=== PATIENT | female | born 1940 | race Asian ===

== ENCOUNTER 2020-06-22 11:25 | Outpatient (REF) | payer MEDICARE, SELFPAY ==
--- NOTE | 2020-06-22 11:31 | MM_ITS ---
EXAMINATION: MM SCREENING DIGITAL BREAST TOMOSYNTHESIS, BILATERAL CLINICAL INFORMATION: Left mastectomy for breast cancer, 1989. Due for yearly. COMPARISON: Mammography: 06/17/2019, 06/14/2018, 06/09/2017, 05/27/2016 TECHNIQUE: Digital breast tomosynthesis is performed in both the craniocaudal and mediolateral oblique views along with computer-aided detection (CAD). Synthesized 2D images are generated from the tomosynthesis. Additional exaggerated CC view is provided. FINDINGS: There are scattered areas of fibroglandular density (ACR BI-RADS breast composition Category b). Breast tissue composition borders on heterogeneously dense. There is fibronodular parenchymal pattern similar to prior exams. There is no significant mass or developing density. No interval architectural abnormality. There are scattered benign round and coarse calcifications. The skin contours are smooth. No significant changes. MM/MM tomosynthesis screening RT IMPRESSION: No significant changes from prior studies. ASSESSMENT: BI-RADS 2: Benign RECOMMENDATION: Routine annual mammography screening. This patient's information was entered into a reminder system with a target due date for their next mammogram.
== END 2020-06-22 11:26 | disposition home or self-care (01) ==
LOC: HO.MAMMO 11:25
PROVIDERS: PCP Internal Medicine; Visit Provider Internal Medicine
DX: Z12.31 Encounter for screening mammogram for malignant neoplasm of breast (principal)
CPT/HCPCS: 77067

== ENCOUNTER 2021-01-26 13:56 | Outpatient (REF) | payer MEDICARE, SELFPAY ==
--- NOTE | ~2021-01-26 | XR_ITS ---
EXAMINATION: XR HIP, LEFT CLINICAL INFORMATION: Left hip pain COMPARISON: May 06, 2020 TECHNIQUE: Two views of the left hip. FINDINGS: Patient status post left hip arthroplasty. The acetabular and femoral components appear in good position. No fracture or dislocation. No evidence of prosthetic component loosening. XR/XR hip LT min 2V IMPRESSION: Appropriate alignment of the left total hip arthroplasty without surrounding abnormalities.
[2021-01-26 16:25] LABS: MANUAL DIFF FLAG NO
[2021-01-26 16:29] LABS: Basophils Percent Auto 0.3 % (0-2); Eosinophils Absolute Auto 0.2 X10*3/uL (0.0-0.4); Hematocrit 41.8 % (37-47); Hemoglobin 13.3 g/dl (12.0-16.0); Imm Gran Abs Auto 0.03 X10*3/uL (0.00-0.03); Imm Gran Pct Auto 0.5 % (0.0-0.4); Lymphocytes Absolute Auto 2.4 X10*3/uL (1.2-4.9); Mean Corpuscular HGB Conc 31.8 g/dl (31.0-35.0); Mean Corpuscular Hemoglobin 28.5 pg (27.0-33.0); Mean Corpuscular Volume 89.5 fL (80-98); Mean Platelet Volume 9.5 fL (9.4-12.3); Monocytes Absolute Auto 0.6 X10*3/uL (0.1-1.2); Monocytes Percent Auto 8.4 % (2-11); Neutrophils Absolute Auto 3.3 X10*3/uL (2.0-8.3); Neutrophils Percent Auto 50.8 % (45-73); Platelet Count 273 X10*3/uL (160-400); Red Blood Count 4.67 X10*6/uL (4.20-5.50); Red Cell Distribution Width 13.9 % (11.0-16.0); White Blood Count 6.6 X10*3/uL (4.8-10.8)
[2021-01-26 16:51] LABS: Anion Gap 15 (12-20); Blood Urea Nitrogen 40 mg/dL (9-16); C Reactive Protein 0.76 mg/dL (< or = 0.50); Carbon Dioxide 23 mmol/L (22-29); Chloride 103 mmol/L (96-108); Estimated Glomerular Filt Rate 55; Glucose Random 108 mg/dL (60-115); Sodium 137 mmol/L (135-145)
[2021-01-26 17:11] LABS: Erythrocyte Sedimentation Rate 23 MM/HR (0-20)
== END 2021-01-26 13:57 | disposition home or self-care (01) ==
LOC: HO.HMGCX 13:56
PROVIDERS: PCP Internal Medicine; Visit Provider Internal Medicine
DX: M25.552 Pain in left hip (principal); R53.83 Other fatigue
CPT/HCPCS: 36415; 73502; 80048; 85025; 85652; 86140

== ENCOUNTER 2021-02-15 10:00 | Outpatient (RCR) | payer MEDICARE, SELFPAY | END 2021-02-19 13:18 | disposition home or self-care (01) | LOC: HO.PTCHIC 10:00 | PROVIDERS: PCP Internal Medicine; Visit Provider Orthopaedic Surgery | DX: Z96.642 Presence of left artificial hip joint (principal) | CPT/HCPCS: 97110; 97140; 97161; 97530 ==

== ENCOUNTER 2021-03-12 10:08 | Emergency (ER) | payer MEDICARE, SELFPAY ==
--- NOTE | ~2021-03-12 | US_ITS ---
EXAMINATION: US ABDOMEN LIMITED CLINICAL INFORMATION: Right upper quadrant pain.. COMPARISON: None TECHNIQUE: Real-time imaging of the right upper quadrant abdominal viscera. FINDINGS: GALLBLADDER: Normal. The gallbladder is physiologically distended without evidence of stones, sludge, polyps, wall thickening or pericholecystic fluid. COMMON BILE DUCT: Normal in caliber measuring 0.4 cm in diameter. US/US abdomen limited IMPRESSION: Unremarkable gallbladder. The CBD is normal caliber.
--- NOTE | ~2021-03-12 | CT_ITS ---
EXAMINATION: CT ABDOMEN AND PELVIS WITH CONTRAST CLINICAL INFORMATION: Upper abdominal pain. Rule out cholecystitis. COMPARISON: Previous MRI of the abdomen March 2019 TECHNIQUE: Multidetector volumetric images were obtained from the superior aspect of the liver through the pubic symphysis following administration 85 mL of Omnipaque 350 intravenous contrast. Sagittal and coronal reformatted images were obtained on the technologist's workstation. Oral contrast: Yes This CT examination was performed using dose optimization techniques as appropriate, variously including the following: *Automated exposure control *Adjustment of mA and/or kV according to patient size (this includes techniques or standardized protocols for targeted exams where dose is matched to indication/reason for exam; i.e. extremities or head) *Use of iterative reconstruction technique DLP: 641 mGy-cm FINDINGS: LUNG BASES: The visualized lung bases are clear. The left breast may been removed. LIVER, GALLBLADDER, AND BILIARY TREE: The liver is low in attenuation suggestive of mild fatty infiltration. No focal liver lesion is seen. The gallbladder is unremarkable with no evidence of radiopaque gallstones, gallbladder wall thickening, or obvious pericholecystic inflammatory changes. PANCREAS: Unremarkable. SPLEEN: There is small calcifications in the spleen probably related to old granulomatous disease. ADRENAL GLANDS: Unremarkable. KIDNEYS AND URETERS: There are bilateral small cysts, right greater than left. Largest cyst measures 1 cm in the lower pole of the right kidney. BLADDER: Not well evaluated due to artifact from bilateral hip replacements. GASTROINTESTINAL TRACT: There is diverticulosis of the colon. No evidence of diverticulitis is seen. The small and large bowel are otherwise unremarkable. The appendix is is not identified and may been removed.. ABDOMINAL WALL: No significant hernia is appreciated. LYMPH NODES: Normal. VASCULAR: There is evidence of atherosclerotic disease. No aneurysm is seen. PELVIC VISCERA: Not well evaluated due to artifact from hip replacements. No pelvic mass is seen. OSSEOUS STRUCTURES: There is scoliosis and degenerative changes of the spine. There are bilateral hip replacements. CT/CT abdomen pelvis w con IMPRESSION: Normal-appearing gallbladder. Mild fatty infiltration of the liver. Bilateral renal cysts. Diverticulosis of the colon. Limited evaluation of the pelvis due to artifact from bilateral hip replacements.
[2021-03-12 11:08] VITALS: BP 155/89; PULSE 72; RESP 18; TEMP 36.5; O2SAT 97; BMI 29.7
--- NOTE | 2021-03-12 11:14 | ECG_ITS ---
Test Reason : PAIM Blood Pressure : / mmHG Vent. Rate : 073 BPM Atrial Rate : 073 BPM P-R Int : 154 ms QRS Dur : 080 ms QT Int : 386 ms P-R-T Axes : 063 023 074 degrees QTc Int : 425 ms Normal sinus rhythm Normal ECG When compared with ECG of 03-JUN-2017 19:19, No significant change was found Referred By: Generic ED Physician Electronically Signed By:Jorge Alejandra
[2021-03-12 11:31] LABS: Glucose Urine UA NEG (NEG); Leukocyte Esterase Urine NEG (NEG); Nitrite Urine NEG (NEG); Specific Gravity - Urine <= 1.005 (1.005-1.025); Urine Blood TRACE (NEG); Urine Ketones NEG (NEG); Urine Protein NEG (NEG-TRACE)
[2021-03-12 11:33] LABS: Appearance Urine CLEAR; Color Urine STRAW
[2021-03-12 11:42] LABS: Bacteria Urine TRACE /LPF; Calcium Phosphate Crystals Ur TRACE /LPF; RBC Urine 0-2 /HPF (0); Squamous Epithelial Cell Urine TRACE /LPF; WBC Urine 0-2 /HPF (0-4)
--- NOTE | 2021-03-12 12:04 | ED.ABDPAIN ---
HPI - Abdominal Pain General Chief Complaint: Abdominal Pain Stated Complaint: Stomach pain Time Seen by Provider: 03/12/21 11:48 Source: patient and family Mode of arrival: ambulatory Limitations: no limitations History of Present Illness HPI narrative: 80-year-old female with a past medical history of hypertension, hyperlipidemia, gastric reflux, bilateral hip replacements, appendectomy here with complaints of upper abdominal pain since 05:00. Patient denies any nausea, vomiting, diarrhea, constipation, urinary symptoms, fevers, chills. No chest pain or shortness of breath or cough. Related Data Allergies Allergy/AdvReac Type Severity Reaction Status Date / Time No Known Allergies Allergy Verified 03/12/21 11:14 [No Known Allergies*] Review of Systems Review of Systems Yes all other systems are reviewed and are negative Constitutional: Reports no additional constitutional complaints, Denies body ache(s), Denies chills, Denies fever(s), Denies headache(s) and Denies weakness Eyes: Reports no additional eye complaints and Denies change in vision Reports system reviewed and no additional complaints, except as documented, Denies dizziness, Denies headache(s), Denies nasal congestion, Denies nasal discharge and Denies neck pain Cardiovascular: Reports no additional cardiovascular complaints, Denies chest pain, Denies leg edema and Denies dyspnea Respiratory: Reports no additional respiratory complaints, Denies cough and Denies dyspnea Gastrointestinal: Reports no additional gastrointestinal complaints, Reports abdominal pain, Denies diarrhea, Denies nausea and Denies vomiting Genitourinary: Reports no additional female genitourinary complaints and Denies urinary incontinence Musculoskeletal: Reports no additional musculoskeletal complaints, Denies back pain, Denies arthralgias, Denies joint swelling, Denies neck pain, Denies numbness and Denies tingling Skin/Breast: Reports system reviewed and no additional complaints, except as docu and Denies rash Reports system reviewed and no additional complaints, except as documented, Denies Abnormal speech present, Denies dizziness, Denies headache(s), Denies numbness, Denies tingling and Denies weakness Physical Exam Vital Signs: Vital Signs: Last Vital Signs Temp 97.7 F 03/12/21 11:08 Pulse 70 03/12/21 17:28 Resp 14 03/12/21 17:28 BP 149/66 H 03/12/21 17:28 Pulse Ox 95 03/12/21 17:28 Body Mass Index 29.7 Const: General: cooperative, healthy appearing, comfortable and no acute distress Orientation/consciousness: patient oriented x3 Limitations: no limitations HENMT: Head: Yes normal to inspection Ears: hearing grossly normal bilaterally General nose exam: Normal external nose present Face and sinus: Yes normal facial exam Mouth: Normal oral and palatal mucosa present Throat: Yes posterior oropharynx normal Eyes: General: appearance normal, both eyes and all related structures Pupils: Equal, round and reactive pupils present Neck: Neck: Yes normal visual inspection Chest: Chest palpation & inspection: normal inspection of the chest Resp: Effort & Inspection: normal respiratory effort Auscultation: clear to auscultation bilaterally Cardio: Rate: regular rate Rhythm: regular rhythm Peripheral pulses: Peripheral pulses 2+ throughout GI: Inspection: Yes normal to inspection Palpation (GI): Soft to palpation and Tenderness to palpation present (GI) (mod tenderness bilateral upper quadrants with guarding and rebound) Auscultation: normal bowel sounds Back/Spine/Pelvis: Thoracic/Lumbar Spine: thoracic and lumbar spine normal to inspection Skin: General skin exam: no rashes or lesions noted Neuro: General: patient oriented x3, no focal motor deficits and normal sensation to monofilament Cranial nerves: Yes Equal, round and reactive pupils present Cognition (Neuro): normal cognition Speech: No Abnormal speech present Gait exam (Neuro): Normal gait present Motor exam (neuro): 5/5 motor strength present throughout Extrem: General: Yes normal to inspection, Yes no pedal edema and Yes no calf tenderness Course Course Course Narrative: 80-year-old female here with upper abdominal pain since 05:00. Patient on exam has moderate upper abdominal tenderness with guarding and rebound. Will need EKG, labs, UA, stat CT. -reviewed labs from January 26 which showed normal renal function. Spoke to CT will take patient for emergent CT while labs pending. Ordered analgesia. 1335-CT shows no acute finding. EKG and troponin negative. UA shows no acute finding. All labs unremarkable. ?Gerd. Will give PPI, GI cocktail and re-assess. 1540-Pt continues to be tender with rebound more focal in epigastric and LUQ. d/w with Dr Bal from surgery. Reviewed CT. No surgical intervention. ?PUD or gastritis. D/w with attending. Plan for abdomen US. 1800-abdominal ultrasound shows no acute finding. Likely gastritis or PUD. Patient is tolerating p.o. with no vomiting. She is on Prilosec 20 mg daily. Recommend increased to 40 mg daily. Following up outpatient with GI. Reviewed worrisome signs and symptoms such as vomiting, severe pain, fever and when to return to the emergency department. Comfortable discharge home. MDM - Abdominal Pain MDM Narrative Medical decision making narrative: Perforated, cholecystitis, pancreatitis, ACS Medical Records Attestation: I reviewed the patient's medical records. Lab Data Attestation: I reviewed the patient's lab results. Result diagrams: 03/12/21 12:09 03/12/21 12:09 Labs: Lab Results 03/12/21 03/12/21 03/12/21 Range/Units 11:18 12:09 12:09 WBC 7.2 (4.8-10.8) X10*3/uL RBC 4.84 (4.20-5.50) X10*6/uL Hgb 14.0 (12.0-16.0) g/dl Hct 42.9 (37-47) % MCV 88.6 (80-98) fL MCH 28.9 (27.0-33.0) pg MCHC 32.6 (31.0-35.0) g/dl RDW 14.4 (11.0-16.0) % Plt Count 224 (160-400) X10*3/uL MPV 9.6 (9.4-12.3) fL Immature Gran % (Auto) 0.3 (0.0-0.4) % Neut % (Auto) 68.3 (45-73) % Lymph % (Auto) 22.0 (20-40) % Alfalfa % (Auto) 7.6 (2-11) % Eos % (Auto) 1.7 (0-4) % Baso % (Auto) 0.1 (0-2) % Lymph # (Auto) 1.6 (1.2-4.9) X10*3/uL Alfalfa # (Auto) 0.6 (0.1-1.2) X10*3/uL Eos # (Auto) 0.1 (0.0-0.4) X10*3/uL Baso # (Auto) 0.0 (0.0-0.2) X10*3/uL Abs Immat Gran (auto) 0.02 (0.00-0.03) X10*3/uL Absolute Neuts (auto) 4.9 (2.0-8.3) X10*3/uL Absolute Nucleated RBC 0.000 (0.0-0.012) X10*3/uL Nucleated RBC % (auto) 0.0 (0.0-0.2) /100WBC PT (9.9-13.0) SEC INR (0.9-1.1) Sodium (135-145) mmol/L Potassium (3.3-5.1) mmol/L Chloride (96-108) mmol/L Carbon Dioxide (22-29) mmol/L Anion Gap (12-20) BUN (9-16) mg/dL Creatinine (0.5-1.4) mg/dL Estim Creat Clear Calc Estimated GFR Random Glucose (60-115) mg/dL Lactic Acid (0.5-2.0) mmol/L Calcium (8.4-10.2) mg/dL Magnesium (1.6-2.6) mg/dL Total Bilirubin (0.0-1.0) mg/dL Direct Bilirubin (0.0-0.5) mg/dL AST (5-31) U/L ALT (0-31) U/L Alkaline Phosphatase (39-117) U/L Troponin I High Sens < 3.5 (<3.5-17.0) ng/L Total Protein (6.5-8.0) g/dL Albumin (3.5-5.0) g/dL Lipase (8-78) U/L Urine Color STRAW Urine Appearance CLEAR Urine pH 6.0 (5.0-8.0) Ur Specific [place] <= 1.005 (1.005-1.025) Urine Protein NEG (NEG-TRACE) MG/DL Urine Glucose (UA) NEG (NEG) MG/DL Urine Ketones NEG (NEG) MG/DL Urine Blood TRACE (NEG) Urine Nitrite NEG (NEG) Ur Leukocyte Esterase NEG (NEG) Urine RBC 0-2 (0) /HPF Urine WBC 0-2 (0-4) /HPF Ur Squamous Epith Cells TRACE /LPF Calcium Phosphate Cryst TRACE /LPF Urine Bacteria TRACE /LPF Coronavirus (PCR) (Negative) Influenza Type A (PCR) (Negative) Influenza Type B (PCR) (Negative) RSV RNA Qual (PCR) (Negative) 03/12/21 03/12/21 03/12/21 Range/Units 12:09 12:09 12:09 WBC (4.8-10.8) X10*3/uL RBC (4.20-5.50) X10*6/uL Hgb (12.0-16.0) g/dl Hct (37-47) % MCV (80-98) fL MCH (27.0-33.0) pg MCHC (31.0-35.0) g/dl RDW (11.0-16.0) % Plt Count (160-400) X10*3/uL MPV (9.4-12.3) fL Immature Gran % (Auto) (0.0-0.4) % Neut % (Auto) (45-73) % Lymph % (Auto) (20-40) % Alfalfa % (Auto) (2-11) % Eos % (Auto) (0-4) % Baso % (Auto) (0-2) % Lymph # (Auto) (1.2-4.9) X10*3/uL Alfalfa # (Auto) (0.1-1.2) X10*3/uL Eos # (Auto) (0.0-0.4) X10*3/uL Baso # (Auto) (0.0-0.2) X10*3/uL Abs Immat Gran (auto) (0.00-0.03) X10*3/uL Absolute Neuts (auto) (2.0-8.3) X10*3/uL Absolute Nucleated RBC (0.0-0.012) X10*3/uL Nucleated RBC % (auto) (0.0-0.2) /100WBC PT 10.8 (9.9-13.0) SEC INR 1.0 (0.9-1.1) Sodium 142 (135-145) mmol/L Potassium 4.2 (3.3-5.1) mmol/L Chloride 109 H (96-108) mmol/L Carbon Dioxide 20 L (22-29) mmol/L Anion Gap 17 (12-20) BUN 22 H (9-16) mg/dL Creatinine 0.88 (0.5-1.4) mg/dL Estim Creat Clear Calc 44.9 Estimated GFR > 60 Random Glucose 98 (60-115) mg/dL Lactic Acid (0.5-2.0) mmol/L Calcium 9.5 (8.4-10.2) mg/dL Magnesium 2.1 (1.6-2.6) mg/dL Total Bilirubin 0.6 (0.0-1.0) mg/dL Direct Bilirubin 0.2 (0.0-0.5) mg/dL AST 18 (5-31) U/L ALT 11 (0-31) U/L Alkaline Phosphatase 92 (39-117) U/L Troponin I High Sens (<3.5-17.0) ng/L Total Protein 7.1 (6.5-8.0) g/dL Albumin 4.0 (3.5-5.0) g/dL Lipase 19 (8-78) U/L Urine Color Urine Appearance Urine pH (5.0-8.0) Ur Specific [place] (1.005-1.025) Urine Protein (NEG-TRACE) MG/DL Urine Glucose (UA) (NEG) MG/DL Urine Ketones (NEG) MG/DL Urine Blood (NEG) Urine Nitrite (NEG) Ur Leukocyte Esterase (NEG) Urine RBC (0) /HPF Urine WBC (0-4) /HPF Ur Squamous Epith Cells /LPF Calcium Phosphate Cryst /LPF Urine Bacteria /LPF Coronavirus (PCR) NEGATIVE (Negative) Influenza Type A (PCR) NEGATIVE (Negative) Influenza Type B (PCR) NEGATIVE (Negative) RSV RNA Qual (PCR) NEGATIVE (Negative) 03/12/21 Range/Units 12:09 WBC (4.8-10.8) X10*3/uL RBC (4.20-5.50) X10*6/uL Hgb (12.0-16.0) g/dl Hct (37-47) % MCV (80-98) fL MCH (27.0-33.0) pg MCHC (31.0-35.0) g/dl RDW (11.0-16.0) % Plt Count (160-400) X10*3/uL MPV (9.4-12.3) fL Immature Gran % (Auto) (0.0-0.4) % Neut % (Auto) (45-73) % Lymph % (Auto) (20-40) % Alfalfa % (Auto) (2-11) % Eos % (Auto) (0-4) % Baso % (Auto) (0-2) % Lymph # (Auto) (1.2-4.9) X10*3/uL Alfalfa # (Auto) (0.1-1.2) X10*3/uL Eos # (Auto) (0.0-0.4) X10*3/uL Baso # (Auto) (0.0-0.2) X10*3/uL Abs Immat Gran (auto) (0.00-0.03) X10*3/uL Absolute Neuts (auto) (2.0-8.3) X10*3/uL Absolute Nucleated RBC (0.0-0.012) X10*3/uL Nucleated RBC % (auto) (0.0-0.2) /100WBC PT (9.9-13.0) SEC INR (0.9-1.1) Sodium (135-145) mmol/L Potassium (3.3-5.1) mmol/L Chloride (96-108) mmol/L Carbon Dioxide (22-29) mmol/L Anion Gap (12-20) BUN (9-16) mg/dL Creatinine (0.5-1.4) mg/dL Estim Creat Clear Calc Estimated GFR Random Glucose (60-115) mg/dL Lactic Acid 1.1 (0.5-2.0) mmol/L Calcium (8.4-10.2) mg/dL Magnesium (1.6-2.6) mg/dL Total Bilirubin (0.0-1.0) mg/dL Direct Bilirubin (0.0-0.5) mg/dL AST (5-31) U/L ALT (0-31) U/L Alkaline Phosphatase (39-117) U/L Troponin I High Sens (<3.5-17.0) ng/L Total Protein (6.5-8.0) g/dL Albumin (3.5-5.0) g/dL Lipase (8-78) U/L Urine Color Urine Appearance Urine pH (5.0-8.0) Ur Specific [place] (1.005-1.025) Urine Protein (NEG-TRACE) MG/DL Urine Glucose (UA) (NEG) MG/DL Urine Ketones (NEG) MG/DL Urine Blood (NEG) Urine Nitrite (NEG) Ur Leukocyte Esterase (NEG) Urine RBC (0) /HPF Urine WBC (0-4) /HPF Ur Squamous Epith Cells /LPF Calcium Phosphate Cryst /LPF Urine Bacteria /LPF Coronavirus (PCR) (Negative) Influenza Type A (PCR) (Negative) Influenza Type B (PCR) (Negative) RSV RNA Qual (PCR) (Negative) Imaging Data CT scan - abdomen: Attestation: I personally reviewed and interpreted this imaging study as follows: Radiologist's impression: EXAMINATION: CT ABDOMEN AND PELVIS WITH CONTRAST? CLINICAL INFORMATION: Upper abdominal pain. Rule out cholecystitis.? COMPARISON: Previous MRI of the abdomen March 2019? TECHNIQUE: Multidetector volumetric images were obtained from the superior aspect of the liver through the pubic symphysis following administration 85 mL of Omnipaque 350 intravenous contrast. Sagittal and coronal reformatted images were obtained on the technologist's workstation.? Oral contrast: Yes This CT examination was performed using dose optimization techniques as appropriate, variously including the following: *Automated exposure control *Adjustment of mA and/or kV according to patient size (this includes techniques or standardized protocols for targeted exams where dose is matched to indication/reason for exam; i.e. extremities or head) *Use of iterative reconstruction technique DLP: 641 mGy-cm FINDINGS: LUNG BASES: The visualized lung bases are clear. The left breast may been removed. LIVER, GALLBLADDER, AND BILIARY TREE: The liver is low in attenuation suggestive of mild fatty infiltration. No focal liver lesion is seen. The gallbladder is unremarkable with no evidence of radiopaque gallstones, gallbladder wall thickening, or obvious pericholecystic inflammatory changes.? PANCREAS: Unremarkable.? SPLEEN: There is small calcifications in the spleen probably related to old granulomatous disease. ADRENAL GLANDS: Unremarkable.? KIDNEYS AND URETERS: There are bilateral small cysts, right greater than left. Largest cyst measures 1 cm in the lower pole of the right kidney. BLADDER: Not well evaluated due to artifact from bilateral hip replacements. GASTROINTESTINAL TRACT: There is diverticulosis of the colon. No evidence of diverticulitis is seen. The small and large bowel are otherwise unremarkable. The appendix is is not identified and may been removed..? ABDOMINAL WALL: No significant hernia is appreciated.? LYMPH NODES: Normal. VASCULAR: There is evidence of atherosclerotic disease. No aneurysm is seen. PELVIC VISCERA: Not well evaluated due to artifact from hip replacements. No pelvic mass is seen. OSSEOUS STRUCTURES: There is scoliosis and degenerative changes of the spine. There are bilateral hip replacements.? CT/CT abdomen pelvis w con IMPRESSION: Normal-appearing gallbladder. Mild fatty infiltration of the liver. Bilateral renal cysts. Diverticulosis of the colon. Limited evaluation of the pelvis due to artifact from bilateral hip replacements.? US - abdomen: Attestation: I personally reviewed and interpreted this imaging study as follows: Radiologist's impression: FINDINGS: GALLBLADDER: Normal. The gallbladder is physiologically distended without evidence of stones, sludge, polyps, wall thickening or pericholecystic fluid. COMMON BILE DUCT: Normal in caliber measuring 0.4 cm in diameter. US/US abdomen limited IMPRESSION: Unremarkable gallbladder. ? The CBD is normal caliber. ECG Data Attestation: I personally reviewed and interpreted this ECG as follows: ECG interpretation date: 03/12/21 ECG interpretation time: 12:00 Interpretation: Normal sinus rhythm with a rate of 73, normal [place], normal QRS, long QT Discharge Plan Discharge Clinical Impression: Abdominal pain Patient Disposition: Home, Self-Care Instructions: Abdominal Pain (ED) Additional Instructions: Your CT scan and ultrasound are normal. Your lab work and urine show no findings. You may have some underlying gastritis or a gastric ulcer and so we are referring you to a fusing machine operator for follow-up Increase your Prilosec to 40 mg daily Follow a bland diet Referrals: Brown Farooq [Physician] - 2 days Interventions: ED Discharge Assessment Last Done: 03/12/21 17:27 [facility] Past Medical History Attestation statement: The following information was validated with the patient. Source: old records reviewed and nursing notes reviewed Medical History Acid reflux FHx: bilateral hip replacements Hypercholesteremia Hypertension Surgical History H/O mastectomy Hx of appendectomy Social History Social History Advance Directives: Yes Advance Directives Information Provided: Yes Advance Directives on File: No
[2021-03-12] MEDS: 0.9 % Sodium Chloride 500 ML 999 ML IV (12:10)
[2021-03-12] MEDS: Morphine Sulfate 2 MG/ML CARTRIDGE IVPUSH (12:13)
[2021-03-12 12:26] LABS: MANUAL DIFF FLAG NO
[2021-03-12 12:30] LABS: Basophils Percent Auto 0.1 % (0-2); Eosinophils Absolute Auto 0.1 X10*3/uL (0.0-0.4); Eosinophils Percent Auto 1.7 % (0-4); Hematocrit 42.9 % (37-47); Imm Gran Abs Auto 0.02 X10*3/uL (0.00-0.03); Imm Gran Pct Auto 0.3 % (0.0-0.4); Lymphocytes Absolute Auto 1.6 X10*3/uL (1.2-4.9); Mean Corpuscular HGB Conc 32.6 g/dl (31.0-35.0); Mean Corpuscular Hemoglobin 28.9 pg (27.0-33.0); Mean Corpuscular Volume 88.6 fL (80-98); Mean Platelet Volume 9.6 fL (9.4-12.3); Monocytes Absolute Auto 0.6 X10*3/uL (0.1-1.2); Monocytes Percent Auto 7.6 % (2-11); Neutrophils Absolute Auto 4.9 X10*3/uL (2.0-8.3); Neutrophils Percent Auto 68.3 % (45-73); Platelet Count 224 X10*3/uL (160-400); Red Blood Count 4.84 X10*6/uL (4.20-5.50); Red Cell Distribution Width 14.4 % (11.0-16.0); White Blood Count 7.2 X10*3/uL (4.8-10.8)
[2021-03-12 12:36] LABS: Prothrombin Time 10.8 SEC (9.9-13.0)
[2021-03-12 12:47] LABS: Lactic Acid 1.1 mmol/L (0.5-2.0)
[2021-03-12 12:57] LABS: Troponin-I High Sensitivity < 3.5 ng/L (<3.5-17.0)
[2021-03-12 13:04] LABS: Alanine Aminotransferase 11 U/L (0-31); Alkaline Phosphatase 92 U/L (39-117); Anion Gap 17 (12-20); Aspartate Amino Transferase 18 U/L (5-31); Bilirubin Direct 0.2 mg/dL (0.0-0.5); Bilirubin Total 0.6 mg/dL (0.0-1.0); Blood Urea Nitrogen 22 mg/dL (9-16); Calcium 9.5 mg/dL (8.4-10.2); Carbon Dioxide 20 mmol/L (22-29); Chloride 109 mmol/L (96-108); Creatinine Clr Calc Pharmacy 44.9; Estimated Glomerular Filt Rate > 60; Glucose Random 98 mg/dL (60-115); Lipase 19 U/L (8-78); Magnesium 2.1 mg/dL (1.6-2.6); Potassium 4.2 mmol/L (3.3-5.1); Sodium 142 mmol/L (135-145); Total Protein 7.1 g/dL (6.5-8.0)
[2021-03-12] MEDS: iohexoL 350 MG/ML 100 ML INFUS..BTL IV (13:20)
[2021-03-12 13:36] LABS: Influenza A PCR NEGATIVE (Negative); Influenza B PCR NEGATIVE (Negative); Resp Syncy Virus RNA Qual PCR NEGATIVE (Negative); SARS COV2 PCR INHOUSE NEGATIVE (Negative)
[2021-03-12] MEDS: Magnesium Hydrox/Alum Hydrox 30 ML ORAL.SUSP PO (14:55)
[2021-03-12] MEDS: Lidocaine HCl Viscous 2 % 15 ML SOLUTION MUCOUS MEM (14:56)
[2021-03-12 14:57] VITALS: BP 135/81; PULSE 72; RESP 16; O2SAT 98
[2021-03-12] MEDS: Famotidine/PF 20 MG/2 ML VIAL IVPUSH (15:02)
[2021-03-12 17:28] VITALS: BP 149/66; PULSE 70; RESP 14; O2SAT 95
== END 2021-03-12 17:27 | disposition home or self-care (01) ==
PROVIDERS: Nurse Practitioner Family; Emergency Provider Emergency Medicine Emergency Medical Services; PCP Internal Medicine
DX: R10.10 Upper abdominal pain, unspecified (principal); K21.9 Gastro-esophageal reflux disease without esophagitis; I10 Essential (primary) hypertension; Z79.899 Other long term (current) drug therapy; Z20.822 Contact with and (suspected) exposure to COVID-19
CPT/HCPCS: 0241U; 36415; 74177; 76705; 80048; 80076; 81001; 83605; 83690; 83735; 84484; 85025; 85610; 87040; 93005; 96374; 96375; 99284; J2270; Q9967

== ENCOUNTER 2021-03-26 07:43 | Day surgery (SDC) | payer MEDICARE, SELFPAY ==
--- NOTE | 2021-03-25 09:13 | HO.ANESPROP2 ---
Documented by User: Letitia Sanchez NP 03/25/21 09:14 HPI - Anesthesia Eval Consult details Narrative: 80yo F for Upper Endoscopy preop abx per surgeon d/t bilat total hips [facility] Past Medical History Medical History Acid reflux FHx: bilateral hip replacements Hypercholesteremia Hypertension Surgical History Surgical History H/O mastectomy Hx of appendectomy Social History Social History Patient Tobacco Use Status: Former Tobacco user Quit Date: 25 yr ago Use of substances other than those prescribed or required for medical reasons: No Are you DNR?: No Advance Directives: No Advance Directives Information Provided: Yes Meds Allergies Allergy/AdvReac Type Severity Reaction Status Date / Time No Known Allergies Allergy Verified 03/12/21 11:14 [No Known Allergies*] Exam Exam Date and Time: March 25, 2021 0913 Pertinent Lab Results Pertinent Lab Results: Laboratory Tests 03/12/21 03/12/21 12:09 12:09 WBC 7.2 Hgb 14.0 Hct 42.9 Plt Count 224 Sodium 142 Potassium 4.2 Chloride 109 H Carbon Dioxide 20 L BUN 22 H Creatinine 0.88 Narrative Narrative: EKG 03/2021 Vent. Rate : 073 BPM ? ? Atrial Rate : 073 BPM ?? P-R Int : 154 ms? QRS Dur : 080 ms ? ? QT Int : 386 ms ? ? ? P-R-T Axes : 063 023 074 degrees ?? QTc Int : 425 ms ? Normal sinus rhythm Normal ECG When compared with ECG of 03-JUN-2017 19:19, No significant change was found Assessment and Plan Assessment Anesthesia Assessment: Chart Reviewed Documented by User: Nini Cook MD 03/26/21 08:31 [facility] Past Medical History Medical History Acid reflux FHx: bilateral hip replacements Hypercholesteremia Hypertension Family History Family history of problems with anesthesia: No Surgical History Surgical History H/O mastectomy Hx of appendectomy History of Problems with Anesthesia: No Social History Social History Patient Tobacco Use Status: Former Tobacco user Quit Date: 25 yr ago Use of substances other than those prescribed or required for medical reasons: No Are you DNR?: No Advance Directives: No Advance Directives Information Provided: Yes Meds Allergies Allergy/AdvReac Type Severity Reaction Status Date / Time No Known Allergies Allergy Verified 03/12/21 11:14 [No Known Allergies*] Exam Airway Mallampati Class: I TM Dist: >3cm Denture: Upper Partial: Lower Heart: rrr Lungs: cta Assessment and Plan Assessment Anesthesia Assessment: Anesthesia Plan Discussed and Chart Reviewed Final Anesthetic Review Family History of Problems with Anesthesia: No History of Problems with Anesthesia: No NPO: Yes ASA Class: II Final Preanesthetic Review: No Changes in Pt Med Stat and Consent Obtained/Reviewed Patient Risk: Intermediate Procedure Risk: Intermediate Anesthetic Plan Anesthetic Plan: MAC: Disposition: Standard PACU
[2021-03-26] MEDS: Gentamicin Sulfate/NaCl 80 MG/100 ML PIGGYBACK 100 MG IV (08:10)
[2021-03-26 08:18] VITALS: BP 146/74; PULSE 63; RESP 16; TEMP 36.6; O2SAT 96; BMI 29.5
[2021-03-26] MEDS: Lactated Ringers 1,000 ML 100 ML IVCONT (08:27)
[2021-03-26] MEDS: Ampicillin Sodium 2 GM in 0.9 % Sodium Chloride 100 ML IV (08:44)
[2021-03-26 09:30] VITALS: BP 98/40; PULSE 62; RESP 16; TEMP 36.2; O2SAT 96
--- NOTE | 2021-03-26 09:37 | PM.OP ---
Brief Operative Note Date of Service: 03/26/21 Pre-op diagnosis: Abdominal pain Post-op diagnosis: other (Hiatal hernia) Procedure: EGD with biopsies Surgeon: Jayro Barnes Anesthesia: MAC Was an Clinical Sciences Professor used for this Procedure?: No Estimated blood loss (mL): 3.0 Pathology: other (A. Gastric antrum B. EG Junction at 35cm) Condition: stable Disposition: PACU
[2021-03-26 09:45] VITALS: BP 129/60; PULSE 60; RESP 18; O2SAT 95
[2021-03-26 09:55] VITALS: TEMP 36.3
--- NOTE | 2021-03-26 20:16 | OP_ITS ---
SURGEON: Jayro Barnes MD INDICATIONS: The patient presents for evaluation of abdominal pain. Full consent has been obtained from her for this, including risks of bleeding and perforation. PREOPERATIVE DIAGNOSIS: Abdominal pain. POSTOPERATIVE DIAGNOSIS: PROCEDURE PERFORMED: Esophagogastroduodenoscopy with biopsies. ESTIMATED BLOOD LOSS: COMPLICATIONS: ANESTHESIA: Monitored anesthesia care. ASSISTANTS: SPECIMENS: POSTOPERATIVE DIAGNOSES: Abdominal pain, hiatal hernia, mild changes of reflux. DESCRIPTION OF PROCEDURE: The patient was placed in the left lateral decubitus position. The Olympus video gastroscope was passed in the posterior oropharynx and upper esophagus under direct vision. The scope was passed slowly into the distal esophagus. The gastroesophageal junction appeared at 35 cm. There was some slight irregularity, but no evidence of esophagitis. The scope entered into the stomach. There was a small hiatal hernia. The scope was advanced to pylorus and the duodenum was cannulated to the descending portion. The duodenum including the bulb appeared normal without mass or ulceration. The scope was withdrawn back in the stomach. The gastric antrum and body appeared normal with good peristalsis. The scope was retroflexed visualizing the proximal stomach carefully which appeared normal, without any sign of mass or ulceration. The scope was straightened. Biopsies were obtained from the gastric antrum. The scope was withdrawn back in the esophagus. Biopsies were obtained at the EG junction at 35 cm. Proximal to this, the esophageal mucosa appeared normal. The scope was withdrawn from the patient. She tolerated the procedure well and was returned to the recovery area in stable condition. IMPRESSION: Hiatal hernia. PLAN: The results of the biopsies will be checked. I did advise her to stay on the omeprazole for another 1 or 2 weeks and then stop it to see how she does off that. I did not see anything that would be the cause of her abdominal pain that she had been having. However, she does report that things are improving. Her previous workup with CAT scan and ultrasound was nonrevealing. If she continues to do well and does not have any further episodes of discomfort, I would plan to see her again on a p.r.n. basis. If Helicobacter pylori is present on the gastric biopsies, we could consider treating that if her symptoms persist. However, if she remains symptom-free, then we could hold off on treating that. She was advised not to use any aspirin and NSAIDs for 1 week. She did receive preprocedure antibiotics in regard to the recent hip replacement and was given a prescription to use amoxicillin later today as well. MD BEBA Bertrand/RAMEZ / [id number]
== END 2021-03-26 10:16 | disposition home or self-care (01) ==
PROVIDERS: PCP Internal Medicine; Visit Provider Internal Medicine
PROC: 0DJ08ZZ Inspection of Upper Intestinal Tract, Via Natural or Artificial Opening Endoscopic (ICD-10-PCS; CPT 43235; principal; 2021-03-26 09:00)
DX: K21.9 Gastro-esophageal reflux disease without esophagitis (principal); K44.9 Diaphragmatic hernia without obstruction or gangrene; I10 Essential (primary) hypertension; E78.5 Hyperlipidemia, unspecified; J45.909 Unspecified asthma, uncomplicated; Z79.82 Long term (current) use of aspirin; Z79.899 Other long term (current) drug therapy; Z87.891 Personal history of nicotine dependence; Z85.3 Personal history of malignant neoplasm of breast
CPT/HCPCS: 43239; 88305; 88342; J0290; J1580

== ENCOUNTER → 2021-06-17 | Outpatient (REF) | payer MEDICARE, SELFPAY ==
--- NOTE | ~2021-06-17 | NM_ITS ---
EXAMINATION: BILIARY TRACT IMAGING STUDY WITH CCK CLINICAL INFORMATION: Right upper quadrant abdominal pain and tenderness. COMPARISON: Right upper quadrant abdominal ultrasound done and CT of the abdomen and pelvis done on 03/12/2021. TECHNIQUE: Serial gamma scintillation camera images were obtained over the abdomen for a total observation period of 60 minutes following the intravenous administration of 5.0 mCi Tc-99m mebrofenin. FINDINGS: There is good concentration of activity in the liver by 5 minutes post injection. Biliary activity is visualized by 5 minutes. The gallbladder is well visualized by 30 minutes. Small bowel is well visualized by 15 minutes. At 60 minutes post radiopharmaceutical injection, a 30-minute infusion of 1.3 micrograms Sincalide was then begun and an additional 30 minutes of images were obtained. There is good emptying of the gallbladder. By the end of the study there is good clearance of activity from the liver and visualization of diffuse small bowel activity. The calculated gallbladder ejection fraction is 80% (normal gallbladder ejection fraction is greater than 35%). NM/NM hepatobiliary w pharm IMPRESSION: Visualization of the gallbladder is evidence of a patent cystic duct and strong evidence against the diagnosis of acute cholecystitis. The common bile duct is patent. Gallbladder emptying and ejection fraction are normal. Liver function appears normal.
== END ==
LOC: HO.NUCMED
PROVIDERS: Visit Provider Internal Medicine
DX: R10.11 Right upper quadrant pain (principal)
CPT/HCPCS: 78227; A9537; J2805

== ENCOUNTER → 2021-06-21 15:08 | Outpatient (BNVA) | payer MEDICARE, SELFPAY | PROVIDERS: PCP Internal Medicine; Referring Provider Internal Medicine; Visit Provider Surgery | DX: M94.0 Chondrocostal junction syndrome [Tietze] (principal) | CPT/HCPCS: 99202 ==

== ENCOUNTER 2021-07-21 11:02 | Outpatient (REF) | payer MEDICARE, SELFPAY | END 2021-07-21 11:03 | disposition home or self-care (01) | LOC: HO.LAB 11:02 | PROVIDERS: Visit Provider Internal Medicine | DX: Z20.822 Contact with and (suspected) exposure to COVID-19 (principal) | CPT/HCPCS: C9803; U0003; U0005 ==

== ENCOUNTER 2021-08-02 13:03 | Outpatient (REF) | payer MEDICARE, SELFPAY ==
--- NOTE | ~2021-08-02 | MM_ITS ---
EXAMINATION: MM SCREENING DIGITAL BREAST TOMOSYNTHESIS, RIGHT CLINICAL INFORMATION: Left mastectomy for breast cancer, 1989. Due for yearly exam. COMPARISON: Mammography: 06/22/2020, 06/17/2019, 06/14/2018, 06/09/2017 TECHNIQUE: Digital breast tomosynthesis is performed in both the craniocaudal and mediolateral oblique views along with computer-aided detection (CAD). Synthesized 2D images are generated from the tomosynthesis. Additional exaggerated right CC view is provided. FINDINGS: There are scattered areas of fibroglandular density (ACR BI-RADS breast composition Category b). Breast tissue composition is similar to prior studies, bordering on heterogeneously dense. There is fibronodular pattern with scattered nodular asymmetries similar to prior studies. No interval dominant mass or architectural abnormality or developing density. There are scattered benign coarse and small round calcifications again seen. The axilla and skin contours are unremarkable. No significant changes. MM/MM tomosynthesis screening RT IMPRESSION: No significant changes from prior exams. ASSESSMENT: BI-RADS 2: Benign RECOMMENDATION: Routine annual mammography screening. This patient's information was entered into a reminder system with a target due date for their next mammogram.
== END 2021-08-02 13:04 | disposition home or self-care (01) ==
LOC: HO.MAMMO 13:03
PROVIDERS: Visit Provider Internal Medicine
DX: Z12.31 Encounter for screening mammogram for malignant neoplasm of breast (principal)
CPT/HCPCS: 77063; 77067

== ENCOUNTER 2021-11-23 15:06 | Outpatient (REF) | payer MEDICARE, SELFPAY ==
--- NOTE | ~2021-11-23 | XR_ITS ---
EXAMINATION: XR CHEST CLINICAL INFORMATION: Shortness of breath, cough, rule out pneumonia. COMPARISON: 03/26/2018 chest radiographs. TECHNIQUE: 2 views of the chest were obtained. FINDINGS: No significant abnormality is noted involving the heart, lungs, mediastinum, bony thorax or soft tissues. XR/XR chest 2V IMPRESSION: No acute cardiopulmonary process.
== END 2021-11-23 15:07 | disposition home or self-care (01) ==
LOC: HO.HMGCX 15:06
PROVIDERS: PCP Internal Medicine; Visit Provider Internal Medicine
DX: R06.02 Shortness of breath (principal); R05.9 Cough, unspecified
CPT/HCPCS: 71046

== ENCOUNTER 2022-06-27 13:29 | Outpatient (REF) | payer MEDICARE, SELFPAY ==
--- NOTE | ~2022-06-27 | MR_ITS ---
EXAMINATION: MR LUMBAR SPINE WITHOUT CONTRAST CLINICAL INFORMATION: Severe pain L5. Previous laminectomy. Rule out spinal canal stenosis and disc herniation. COMPARISON: Lumbar spine MRI 12/07/2017. TECHNIQUE: MRI of the lumbar spine was obtained using routine sequences without contrast. FINDINGS: The lumbar vertebral bodies maintain normal heights. There is mild retrolisthesis of L1 on L2 and L2 on L3. There is advanced disc height loss throughout all the lumbar levels. There is focal moderate dextroscoliotic curvature centered at the L1-L2 level. Endplate edema seen at L1-L2, L2-L3, L3-L4, and L4-L5. A few scattered Schmorl's nodes are also demonstrated. The distal spinal cord appears normal. The conus medullaris terminates normally at the L1 level. There are a few bilateral perineural cysts. There is fatty atrophy of the posterior paraspinal musculature. The extraspinal soft tissues are otherwise within normal limits. SPINAL LEVELS: L1-L2: Disc bulging asymmetric to the left. Left subarticular stenosis and unchanged moderate left and mild right neural foraminal stenosis. L2-L3: Disc bulging asymmetric to the left with moderate facet arthropathy resulting in stable mild spinal canal stenosis. Unchanged severe left and [id number] right neural foraminal stenosis. L3-L4: Disc bulging with ligamentum flavum infolding and severe facet arthropathy results in unchanged mild spinal canal stenosis. Similar appearance of bilateral subarticular stenosis, left more than right. Progressive now moderate left neural foraminal stenosis with mild compression of the exiting left L3 nerve root. Stable mild to moderate right neural foraminal stenosis. L4-L5: Disc bulging asymmetric to the right with severe facet arthropathy. Stable narrowing the right subarticular zone. Stable severe right neural foraminal stenosis with compression of the exiting right L4 nerve root. L5-S1: Right hemilaminectomy changes. Disc bulging with severe facet arthropathy resulting in unchanged compression of the traversing right S1 nerve root. Stable appearance of severe right-sided neural foraminal stenosis with compression of the exiting right L5 nerve root. Mild left neural foraminal stenosis. MR/MR lumbar spine wo con IMPRESSION: 1. Advanced multilevel degenerative spondylosis in a background of moderate dextroscoliotic curvature centered at the L1-L2 level. 2. At L2-L3 there is unchanged severe left neural foraminal stenosis. 3. At L3-L4 there is progressive now moderate left neural foraminal stenosis with mild compression of the exiting left L3 nerve root. Stable mild to moderate right neural foraminal stenosis. 4. At L4-L5 there is stable severe right neural foraminal stenosis with compression of the exiting right L4 nerve root. 5. At L5-S1 there is unchanged compression of the traversing right S1 nerve root and unchanged severe right neural foraminal stenosis with compression of the exiting right L5 nerve root.
== END 2022-06-27 13:30 | disposition home or self-care (01) ==
LOC: HO.MRI 13:29
PROVIDERS: Visit Provider Internal Medicine
DX: M54.50 Low back pain, unspecified (principal)
CPT/HCPCS: 72148

== ENCOUNTER 2022-08-04 11:39 | Outpatient (REF) | payer MEDICARE, SELFPAY ==
--- NOTE | ~2022-08-04 | MM_ITS ---
EXAMINATION: MM SCREENING DIGITAL BREAST TOMOSYNTHESIS, RIGHT CLINICAL INFORMATION: Screening. Asymptomatic. Status post left mastectomy. COMPARISON: Mammography: August 02, 2021 and studies dating back to May 27, 2016 TECHNIQUE: Digital breast tomosynthesis is performed in both the craniocaudal and mediolateral oblique views along with computer-aided detection (CAD). Synthesized 2D images are generated from the tomosynthesis. FINDINGS: The the right breast is heterogeneously dense, which may obscure small masses (ACR BI-RADS breast composition Category c). There are no significant masses, abnormal calcifications, or other abnormalities. MM/MM tomosynthesis screening RT IMPRESSION: No significant changes from prior exam. ASSESSMENT: BI-RADS 1: Negative RECOMMENDATION: Routine annual mammography screening. This patient's information was entered into a reminder system with a target due date for their next mammogram.
== END 2022-08-04 11:40 | disposition home or self-care (01) ==
LOC: HO.MAMMO 11:39
PROVIDERS: Visit Provider Internal Medicine
DX: Z12.31 Encounter for screening mammogram for malignant neoplasm of breast (principal)
CPT/HCPCS: 77063; 77067

== ENCOUNTER 2022-11-14 13:19 | Outpatient (REF) | payer MEDICARE, SELFPAY ==
--- NOTE | ~2022-11-14 | XR_ITS ---
EXAMINATION: XR CHEST CLINICAL INFORMATION: SOB, cough. COMPARISON: Chest x-ray 11/23/2021 TECHNIQUE: 2 views of the chest were obtained. FINDINGS: The lungs are hyperinflated but clear. Increased markings are seen in both lung bases likely atelectasis or developing infiltrate. The findings are more prominent on the left side. No pleural effusion or consolidation. The heart size and pulmonary vascularity is normal. There is mild levoscoliosis all of dorsal spine. XR/XR chest 2V IMPRESSION: Interval increase in interstitial markings in both bases left greater than right likely atelectasis or developing infiltrate.
== END 2022-11-14 13:20 | disposition home or self-care (01) ==
LOC: HO.HMGCX 13:19
PROVIDERS: PCP Internal Medicine; Visit Provider Internal Medicine
DX: R06.02 Shortness of breath (principal); R05.9 Cough, unspecified
CPT/HCPCS: 71046

== ENCOUNTER 2022-11-21 11:47 | Outpatient (REF) | payer MEDICARE, SELFPAY ==
--- NOTE | ~2022-11-21 | XR_ITS ---
EXAMINATION: XR CHEST CLINICAL INFORMATION: Cough. Rule out pneumonia. COMPARISON: Previous x-ray most recent 11/14/2022 TECHNIQUE: 2 views of the chest were obtained. FINDINGS: The cardiac and mediastinal contours are stable. There are increased markings at the lung bases questionable for atelectasis or small infiltrates. Appearance is similar to recent exam 11/14/2022. The lungs are otherwise clear. No pleural effusion or pneumothorax. Degenerative changes of the spine and mild scoliosis. XR/XR chest 2V IMPRESSION: Atelectasis or small infiltrates at both lung bases similar to most recent exam 11/14/2022.
== END 2022-11-21 11:48 | disposition home or self-care (01) ==
LOC: HO.HMGCX 11:47
PROVIDERS: PCP Internal Medicine; Visit Provider Internal Medicine
DX: R05.9 Cough, unspecified (principal)
CPT/HCPCS: 71046

== ENCOUNTER 2022-12-02 11:03 | Outpatient (REF) | payer MEDICARE, SELFPAY ==
--- NOTE | ~2022-12-02 | XR_ITS ---
EXAMINATION: XR CHEST CLINICAL INFORMATION: Follow-up atelectasis/infiltrate COMPARISON: None available. TECHNIQUE: 2 views of the chest were obtained. FINDINGS: The lungs are well-expanded and clear. The heart size and pulmonary vascularity is normal. No gross bony abnormality seen. There is mild dextroscoliosis of dorsal spine. No aggressive lytic or sclerotic process. XR/XR chest 2V IMPRESSION: Unremarkable chest exam.
== END 2022-12-02 11:04 | disposition home or self-care (01) ==
LOC: HO.HMGCX 11:03
PROVIDERS: PCP Internal Medicine; Visit Provider Internal Medicine
DX: J98.11 Atelectasis (principal); R91.8 Other nonspecific abnormal finding of lung field
CPT/HCPCS: 71046

== ENCOUNTER 2023-03-21 11:44 | Outpatient (REF) | payer MEDICARE, SELFPAY ==
--- NOTE | ~2023-03-21 | XR_ITS ---
EXAMINATION: XR SHOULDER, RIGHT CLINICAL INFORMATION: Right shoulder pain. Evaluate for a fracture. COMPARISON: None available. TECHNIQUE: AP, Grashey, and scapular Y views of the right shoulder. FINDINGS: Moderate acromioclavicular joint space narrowing with marginal osteophytes. Tiny subchondral spurs. Mild glenohumeral joint space narrowing with marginal osteophytes. No acute fracture or dislocation. No concerning lytic or blastic osseous lesion. No abnormal soft tissue calcification. XR/XR shoulder RT min 2V IMPRESSION: Moderate acromioclavicular and mild glenohumeral osteoarthritis.
== END 2023-03-21 11:45 | disposition home or self-care (01) ==
LOC: HO.HMGCX 11:44
PROVIDERS: PCP Internal Medicine; Visit Provider Internal Medicine
DX: M25.511 Pain in right shoulder (principal)
CPT/HCPCS: 73030

== ENCOUNTER 2023-08-10 10:35 | Outpatient (REF) | payer MEDICARE, SELFPAY ==
--- NOTE | ~2023-08-10 | MM_ITS ---
EXAMINATION: MM SCREENING DIGITAL BREAST TOMOSYNTHESIS, RIGHT CLINICAL INFORMATION: Screening. Asymptomatic. The patient is status post left mastectomy. COMPARISON: Mammography: This study is compared with prior exams dating back to 2017. TECHNIQUE: Digital breast tomosynthesis is performed in both the craniocaudal and mediolateral oblique views along with computer-aided detection (CAD). Synthesized 2D images are generated from the tomosynthesis. FINDINGS: There are scattered areas of fibroglandular density (ACR BI-RADS breast composition Category b). There are no significant masses, abnormal calcifications, or other abnormalities. There are few, benign calcifications are present in the right breast. MM/MM tomosynthesis screening RT IMPRESSION: No mammographic evidence of malignancy. ASSESSMENT: BI-RADS BI-RADS 2 - Benign Findings RECOMMENDATION: Routine annual mammography screening. 1 year F/U This examination should not preclude the clinical evaluation of a suspicious palpable abnormality. This patient's information was entered into a reminder system with a target due date for their next mammogram.
== END 2023-08-10 10:36 | disposition home or self-care (01) ==
LOC: HO.MAMMO 10:35
PROVIDERS: PCP Internal Medicine; Visit Provider Internal Medicine
DX: Z12.31 Encounter for screening mammogram for malignant neoplasm of breast (principal)
CPT/HCPCS: 77063; 77067

== ENCOUNTER → 2023-08-10 10:45 | Outpatient (BNV) | payer MEDICARE, SELFPAY | PROVIDERS: PCP Internal Medicine; Visit Provider Radiology Diagnostic Radiology | DX: Z12.31 Encounter for screening mammogram for malignant neoplasm of breast (principal) | CPT/HCPCS: 77063; 77067 ==

== ENCOUNTER 2023-12-07 10:42 | Outpatient (REF) | payer MEDICARE, SELFPAY ==
--- NOTE | ~2023-12-07 | XR_ITS ---
EXAMINATION: XR SHOULDER, RIGHT CLINICAL INFORMATION: Right shoulder pain COMPARISON: None available. TECHNIQUE: AP external rotation, Grashey, scapular Y, and axillary views of the right shoulder. FINDINGS: There are hypertrophic changes of the acromioclavicular joint including undersurface osteophyte formation. No fracture, dislocation or bone lesion is evident in the right shoulder. The glenohumeral articulation appears maintained. XR/XR shoulder RT min 2V IMPRESSION: Right acromioclavicular joint degenerative and hypertrophic changes.
== END 2023-12-07 10:43 | disposition home or self-care (01) ==
LOC: HO.HMGCX 10:42
PROVIDERS: PCP Internal Medicine; Visit Provider Internal Medicine
DX: M25.511 Pain in right shoulder (principal)
CPT/HCPCS: 73030

== ENCOUNTER 2024-01-16 08:56 | Outpatient (REF) | payer MEDICARE, SELFPAY ==
--- NOTE | ~2024-01-16 | XR_ITS ---
EXAMINATION: XR HAND, LEFT CLINICAL INFORMATION: Pain in left hand, attention thumb. COMPARISON: 05/19/2017 left wrist. TECHNIQUE: PA, lateral, and oblique views of the left hand. FINDINGS: The bones are diffusely demineralized. Advanced degenerative changes in the first carpometacarpal joint with joint space narrowing and hypertrophic change. Radiopaque marker placed by technologist to indicate the area of concern as indicated by the patient adjacent to the first carpometacarpal joint. Degenerative changes in multiple IP joints, most advanced in the second and third digit DIP joints, although evaluation limited on lateral view due to overlapping second, third, fourth and fifth digits. XR/XR hand LT min 3V IMPRESSION: 1. Advanced degenerative changes in the first carpometacarpal joint. 2. Degenerative changes in multiple IP joints, most advanced in the second and third DIP joints. 3. Bones are diffusely demineralized. Recommend follow-up imaging in 10-14 days if fracture is suspected.
== END 2024-01-16 08:57 | disposition home or self-care (01) ==
LOC: HO.HOSX 08:56
DX: C44.629 Squamous cell carcinoma of skin of left upper limb, including shoulder (principal); M18.12 Unilateral primary osteoarthritis of first carpometacarpal joint, left hand
CPT/HCPCS: 73130; 99202

== ENCOUNTER 2024-01-16 10:12 | Outpatient (AMB) | payer MEDICARE, SELFPAY ==
--- NOTE | 2024-01-16 10:13 | A.OFFVIS_ITS ---
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 States she has a constant ache in her thumb. She states about 1 month ago her PCP took a sample of the liu bump and stated that more had to be taken out. Patient would like to discuss possible treatment plans. 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 She says she recently had a cancerous lesion removed from her left thumb by Dr. Juarez, DOS: 12/14/23. She was referred here to discuss a possible wider biopsy to ensure all cancer cells have been removed. In looking at the pathology report, there is some concern that the biopsy was close to the margin of the lesion. She says she has noticed a new mass on the ulnar side of her right hand, and is concerned if this is also cancer. I explained to her that now that she has had a skin cancer I think it is important that she is scheduled for an appointment with a roving department supervisor so that they can look over her entire body including this very small pale area on the ulnar side of her hand. She said she will talk to her primary care provider about a referral to a roving department supervisor. [facility] Medical History FHx: bilateral hip replacements Acid reflux Hypercholesteremia Hypertension Surgical History History of bilateral hip replacements H/O mastectomy Hx of appendectomy Family History Mother Lung cancer Social History Patient Tobacco Use Status: Former Tobacco user Review of Systems Const All systems reviewed & are unremarkable except as noted in HPI and below Physical Exam Const General: cooperative, healthy appearing and no acute distress Orientation/consciousness: patient oriented x3 HEENT Head: Yes normocephalic and Yes atraumatic Eyes EOM: EOMs intact bilaterally Resp Effort & Inspection: normal respiratory effort and able to speak in complete sentences Cardio Jugular venous distension: no JVD Skin General skin exam: turgor normal Rashes: no rashes Neuro General: patient oriented x3 Extrem Other: Evaluation of Left Upper Extremity: The patient is alert, oriented, and in no acute distress Neuro: Median, Ulnar, Radial nerves motor and sensory intact and sensation is normal to the tips of all digits Vascular: Cap refill brisk ROM: She can make a fist and extend all her digits No locking or catching Skin: She has an approximately 5 mm slightly raised skin lesion that is dark red in color. She says that this is the area where she had the biopsy removed. It is located over the dorsal aspect of the left 1st metacarpal, about a cm distal to the CMC joint. The skin in this area is mobile. There is no swelling, erythema or evidence of infection. There is no drainage. 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 Hypertrophic actinic keratosis extends to a peripheral edge. Dipika Vela MD Board certified in anatomic pathology and dermatopathology. [facility] pathology [facility] [phone] Please see original report for additional information as necessary. Radiographs: 3 views of the left hand were taken and viewed by me today in clinic. They show no fractures or dislocations. 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 Left hand squamous cell carcinoma, S/P excision DOS: 12/14/[address] Juarez, her PCP I educated her about this condition I discussed operative and non-operative treatment options The patient would like to proceed with surgery The risks and benefits of operative treatment were discussed with the patient and the patient wishes to proceed with surgery. These risks include, but are not limited to risk of damage to blood vessels, nerves, tendons, infection, recurrence, incomplete relief of preoperative symptoms, persistent pain, possible need for further surgery and the risks associated with regional blocks and anesthesia. The plan is to take the patient to the operating room sometime in the next few weeks for the following procedures: 1. Left hand squamous cell carcinoma excisional biopsy, under local All of the preoperative paperwork including the consent was reviewed today. All the patient's questions were answered. The patient understands that they will be contacted by our customer service officer soon to schedule this procedure. She would like to be placed on a cancellation list to have this done sooner if possible. She denies Diabetes, blood thinners, asthma, heart, lung, kidney issues 2. Left basal joint osteoarthritis Seen on radiographs No complaints today Scribed for Klarissa Teran MD by Eddie Merino, medical coding manager, on 01/16/24 at 10:45 AM, EST. 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
== END 2024-01-16 10:53 | disposition home or self-care (01) ==
PROVIDERS: PCP Internal Medicine; Visit Provider Orthopaedic Surgery
DX: M18.12 Unilateral primary osteoarthritis of first carpometacarpal joint, left hand (principal); C44.629 Squamous cell carcinoma of skin of left upper limb, including shoulder
CPT/HCPCS: 99204

== ENCOUNTER 2024-01-25 11:58 | Day surgery (SDC) | payer MEDICARE, SELFPAY ==
[2024-01-25 12:15] VITALS: BP 140/76; PULSE 80; RESP 16; TEMP 36.6; O2SAT 96; BMI 28.0
--- NOTE | 2024-01-25 13:44 | MHC.SHP ---
Pre-Procedural Eval Section A - 24 Hr Update-Section A only Date of Service: 01/25/24 The patient is an INPATIENT: No Changes since office visit: No Cold of Flu in the past 2 weeks, No New Medical Problems, No Changes in Medication and No Patient answered all questions The patient has been examined within 24 hours of the surgical procedure. The History & Physical has been completed within 30 days and I have reviewed it.: Yes Section B - Complete if H&P > 30 days Chief Complaint: Squamous cell carcinoma of skin of left upper limb Allergies: Allergies Allergy/AdvReac Type Severity Reaction Status Date / Time No Known Allergies Allergy Verified 01/16/24 10:14 [No Known Allergies*] Plan I have reviewed the history and physical and performed a pertinent physical examination on my patient. No changes have occurred unless specified. Time Spent With Patient Time: Total time managing care of this patient today ____ minutes.
--- NOTE | 2024-01-25 13:45 | W.PM.OPN ---
Operative Note Operative Note Date of Service: 01/25/24 Narrative: Operative Note Preop diagnosis: 1. Left hand squamous cell carcinoma Postop diagnosis: same Procedure: 1. Left hand squamous cell carcinoma excisional biopsy Surgeon: Klarissa Teran MD Anesthesia: Local block using 1% lidocaine with epinephrine Findings: Small skin lesion over the dorsal aspect of the 1st metacarpal EBL: Less than 5 mL Tourniquet time: None Specimens: Left dorsal hand mass/squamous cell carcinoma Complications: None Disposition: Brought to recovery room in stable condition Plan: Follow-up for 7-10 days for wound check and suture removal and to check pathology Indications: The patient is 83 years old, with a left dorsal hand skin lesion consistent with squamous cell carcinoma but without clear margins . The risks and benefits of operative treatment including but not limited to risk of damage to blood vessels, nerves, tendons, infection, persistent pain, persistent symptoms, recurrence or possible need for additional surgery were discussed with the patient and the patient wishes to proceed with surgery. Procedure: Once consent was obtained a digital block was performed in the preop area using a combination of 1% lidocaine with epinephrine. The patient was then brought back to the operating suite and placed on the operative table in supine position. A tourniquet was applied to the proximal aspect of the left upper extremity and the limb was prepped and draped in a standard surgical fashion. Once assured that we had a good block, a longitudinally oriented elliptical incision was made about the left dorsal hand skin mass. This mass had been excised at an outside facility but clear margins were not obtained. The longitudinally oriented elliptical incision measured approximately 1 cm in width by 2.5 cm in length. The incision was made through the skin to the subcutaneous tissue. This was done using a 15. Blade. I then used iris scissors to carefully dissect the skin from the underlying subcutaneous tissue. This was done in a proximal to distal direction. The piece of skin was removed from the patient and placed on the back table to be sent for histopathology. The wound was irrigated with normal saline. I then used my iris scissors to carefully undermine the skin edges around the excisional area. I was then able to reapproximate the skin edges of the elliptical incision using 5 0 Prolene suture. A sterile dressing was applied. The patient appears to have tolerated the procedure well and with no complications. All digits were well vascularized at the conclusion of the case.
[2024-01-25 14:58] VITALS: BP 164/77; PULSE 75; RESP 19; O2SAT 98
== END 2024-01-25 15:21 | disposition home or self-care (01) ==
PROVIDERS: PCP Internal Medicine; Visit Provider Orthopaedic Surgery
PROC: (CPT 11621; principal; 2024-01-25 13:20)
DX: C44.629 Squamous cell carcinoma of skin of left upper limb, including shoulder (principal); L90.5 Scar conditions and fibrosis of skin; M18.12 Unilateral primary osteoarthritis of first carpometacarpal joint, left hand; I10 Essential (primary) hypertension; E78.00 Pure hypercholesterolemia, unspecified; Z98.890 Other specified postprocedural states; Z87.891 Personal history of nicotine dependence
CPT/HCPCS: 11621; 88305; J0171

== ENCOUNTER → 2024-01-25 11:58 | Outpatient (BNV) | payer MEDICARE, SELFPAY | PROVIDERS: PCP Internal Medicine; Visit Provider Orthopaedic Surgery | DX: C44.629 Squamous cell carcinoma of skin of left upper limb, including shoulder (principal) | CPT/HCPCS: 26117 ==

== ENCOUNTER 2024-02-07 09:45 | Outpatient (AMB) | payer MEDICARE, SELFPAY ==
--- NOTE | 2024-02-07 09:47 | A.OFFVIS_ITS ---
Intake Visit Reasons: PO LT squamous cell exc BX 01/25/24 AR Intake Note: Danna is a 83 year old right hand dominant female who presents today for a post op s/p LT squamous cell exc BX 01/25/24 AR. Patient reports that she is doing well, she is feeling some tightness on the base of the thumb. Allergies No Known Allergies [No Known Allergies*] Allergy (Verified 02/07/24 09:50) HPI HPI PO LT squamous cell exc BX 01/25/24 AR: Details: Danna is an 83 year old right hand dominant woman who returns S/P left thumb excisional biopsy, DOS: 01/25/24 She had a cancerous lesion removed from her left thumb by Dr. Juarez, DOS: 12/14/23. She says she is doing well overall. She feels some tightness at the base of her thumb but denies any pain, numbness, or tingling. In regards to her right hand: the white spot on the ulnar aspect of her hand has been checked by Dermatology and was told to manage this conservatively for now. She complains of a mass on the volar right wrist that she would like to talk about. [facility] Medical History FHx: bilateral hip replacements Acid reflux Hypercholesteremia Hypertension Surgical History History of bilateral hip replacements H/O mastectomy Hx of appendectomy Family History Mother Lung cancer Social History Patient Tobacco Use Status: Former Tobacco user Review of Systems Const All systems reviewed & are unremarkable except as noted in HPI and below Physical Exam Const General: no acute distress and alert Orientation/consciousness: patient oriented x3 Neuro General: patient oriented x3 Extrem Other: The patient was alert oriented and in no acute distress The incision is healing well with no erythema drainage or evidence of infection. Sutures removed and Steri-Strips applied She can make a fist and extend all her digits She has a mass on the right volar wrist, ~2-3cm proximal to the distal wrist crease, most consistent with a volar wrist ganglion. This measures ~1cm in diameter Sensation is intact Cap refill is brisk Pathology report 01/25/24 Diagnosis Skin, left hand mass, excision: -Dermal scar. -No residual carcinoma identified. Psych Appearance: grossly normal Affect: normal affect Attitude: cooperative Assessment & Plan Assessment & Plan (1) Squamous cell carcinoma of left hand: Code(s): C44.629 - Squamous cell carcinoma of skin of left upper limb, including shoulder Category: Medical (2) Osteoarthritis of carpometacarpal joint of left thumb: Code(s): M18.12 - Unilateral primary osteoarthritis of first carpometacarpal joint, left hand Category: Medical Plan Assessment & Plan: 1. Left hand squamous cell carcinoma, S/P excision & biopsy DOS: 12/14/[address] Juarez, her PCP DOS: 01/25/24 The patient appears to be doing well post-operatively I educated her about the post-operative course & reviewed the pathology report with her. I explained that there was no cancer cells found and it was all scar tissue that was excised. She was happy with this explanation I discussed activity modifications, she is to lift nothing heavier than a cellphone for the next two weeks She will perform gentle ROM exercises at home She should avoid any underwater activities for the next 5 days She should gently massage about the incision site to reduce the risk of hypersensitivity 2. Right volar wrist ganglion ~2-3cm proximal to distal wrist crease, ~1cm in diameter She will follow up prn to discuss treatment options 3. Left basal joint osteoarthritis Seen on radiographs No complaints today Scribed for Klarissa Teran MD by bebe Rendon, on 02/07/24 at 10:00 AM, EST. Scribe Plan - Not visible on output: Scribed for Klarissa Teran MD by bebe Rendon scribe, on [ ] at [ ], EST. Coding Level of Care Code Global (62265) Diagnoses Squamous cell carcinoma of left hand C44.629 Osteoarthritis of carpometacarpal joint of left thumb M18.12
== END 2024-02-07 10:05 | disposition home or self-care (01) ==
PROVIDERS: PCP Internal Medicine; Visit Provider Orthopaedic Surgery
DX: C44.629 Squamous cell carcinoma of skin of left upper limb, including shoulder (principal); M18.12 Unilateral primary osteoarthritis of first carpometacarpal joint, left hand
CPT/HCPCS: 99024

== ENCOUNTER → 2024-02-07 09:45 | Outpatient (BNVA) | payer MEDICARE, SELFPAY | PROVIDERS: PCP Internal Medicine; Visit Provider Orthopaedic Surgery | DX: Z48.3 Aftercare following surgery for neoplasm (principal); C44.629 Squamous cell carcinoma of skin of left upper limb, including shoulder; M67.431 Ganglion, right wrist; M18.12 Unilateral primary osteoarthritis of first carpometacarpal joint, left hand | CPT/HCPCS: 99212 ==

== ENCOUNTER 2024-06-18 10:42 | Outpatient (AMB) | payer MEDICARE, SELFPAY ==
--- NOTE | 2024-06-18 10:48 | A.OFFVIS_ITS ---
Vital Signs 06/18/24 10:49 Height 5 ft 2 in Weight 153 lb 3 oz BMI 28.0 Intake Visit Reasons: Preop LT ganglion removal 06/27/24 AR Intake Note: Danna is an 83 year old right hand dominant female who presents today preoperatively for a left ganglion removal scheduled for 06/27/[address] Teran. Consent signed in office today. Patient s/p left squamous cell excisio nal biopsy, DOS: 01/25/[address] Teran. Allergies No Known Allergies [No Known Allergies*] Allergy (Verified 06/18/24 10:49) HPI HPI Preop LT ganglion removal 06/27/24 AR: Details: The patient is an 83-year-old [id number] woman who returns to discuss operative treatment for her left volar wrist ganglion. She says that it is bothersome and she would like to have it removed. She is also status post excisional biopsy of a squamous cell carcinoma from the dorsal base of the left thumb. Surgery with mo was on 01/25/2024. She is happy with the results of that surgery. ON LICENSE OF [facility] Medical History FHx: bilateral hip replacements Acid reflux Hypercholesteremia Hypertension Surgical History History of bilateral hip replacements H/O mastectomy Hx of appendectomy Family History Mother Lung cancer Social History (Updated 06/18/24 @ 10:52 by LOTTIE Cook) Patient Tobacco Use Status: Former Tobacco user Current occupation: rt handed Physical Exam Vital Signs: BMI result Body Mass Index 28.0 Extrem Other: The patient was alert oriented and in no acute distress. Median ulnar radial nerve motor and sensory were grossly intact. She can make a fist and extend all of her digits in her left hand. The surgical site from the excision of her squamous cell carcinoma is well healed and barely visible over the dorsal base of the left thumb. She does have a left volar wrist ganglion. It is about 1.2 cm in diameter and approximately 2-3 cm proximal to the distal wrist crease. I can palpate the radial artery just proximal to the volar wrist ganglion. Regarding her José Miguel's test, she has good fill from the ulnar artery to all digits. She does also referred to some pain radiating out to the base of her thumb. She does have a positive shoulder sign and some mild tenderness over the basal joint of the left thumb.. Assessment & Plan Assessment & Plan (1) Ganglion cyst of volar aspect of left wrist: Code(s): M67.432 - Ganglion, left wrist Category: Medical Plan Assessment and plan: 1. Left volar wrist ganglion Proximally 1.2 cm in diameter, and 2-3 cm proximal to the distal wrist crease José Miguel's test with good fill from the ulnar artery. I educated her about this condition We discussed operative and non operative treatment options and she wishes to proceed with surgery. The risks and benefits of operative treatment were discussed with the patient and the patient wishes to proceed with surgery. These risks include, but are not limited to risk of damage to blood vessels, nerves, tendons, infection, recurrence, incomplete relief of preoperative symptoms, persistent pain, possible need for further surgery and the risks associated with regional blocks and anesthesia. The plan is to take the patient to the operating room sometime in the next few weeks for the following procedures: 1. Left volar wrist ganglion excision, under general 2. [ ] All of the preoperative paperwork including the consent was filled out today. All the patient's questions were answered. The patient understands that they will be contacted by our home health scheduler soon to schedule this procedure 2. Left basal joint arthritis Mildly symptomatic. 3. Left hand squamous cell carcinoma, S/P excision & biopsy DOS: 12/14/[address] Juarez, her PCP DOS: 01/25/24 This has gone on to heal well. This procedure was performed out of concern for squamous cell carcinoma extending to the margin of the 1st biopsy. Regarding the specimen from our excision: No cancer cells were found, and it was all scar tissue that was excised. She is very pleased with the results. Coding Level of Care Code Est Pt Level 4 (70239) Diagnoses Ganglion cyst of volar aspect of left wrist M67.432
[2024-06-18 10:49] VITALS: BMI 28.0
== END 2024-06-18 11:29 | disposition home or self-care (01) ==
PROVIDERS: PCP Internal Medicine; Visit Provider Orthopaedic Surgery
DX: M67.432 Ganglion, left wrist (principal)
CPT/HCPCS: 99214

== ENCOUNTER → 2024-06-18 10:42 | Outpatient (BNVA) | payer MEDICARE, SELFPAY | PROVIDERS: PCP Internal Medicine; Visit Provider Orthopaedic Surgery | DX: Z01.818 Encounter for other preprocedural examination (principal); M67.432 Ganglion, left wrist; Z85.828 Personal history of other malignant neoplasm of skin | CPT/HCPCS: 99212 ==

== ENCOUNTER 2024-06-27 05:54 | Day surgery (SDC) | payer MEDICARE, SELFPAY ==
[2024-06-24 16:06] VITALS: BMI 28.3
--- NOTE | 2024-06-26 09:14 | P.CONAN_ITS ---
Documented by User: Letitia Sanchez NP 06/26/24 09:14 HPI - Anesthesia Eval Consult details Narrative: 83yo for Left Hand Ganglion removal PMFSH Active Problems Active Problems: All Active Problems Ganglion cyst of volar aspect of left wrist (Acute) Osteoarthritis of carpometacarpal joint of left thumb (Acute) Squamous cell carcinoma of left hand (Acute) Costochondritis, acute (Acute) Past Medical History Medical History Wears glasses Wears dentures Arthritis Back pain Slow to wake up after anesthesia History of blood transfusion (1962) Anxiety GERD (gastroesophageal reflux disease) FHx: bilateral hip replacements Acid reflux Hypercholesteremia Hypertension Family History Family History Mother Lung cancer Family history of problems with anesthesia: No Surgical History Surgical History Hx of squamous cell carcinoma excision (01/25/24) Hx of colonoscopy History of back surgery (~2013) History of bilateral hip replacements H/O mastectomy (1989) Hx of appendectomy History of Problems with Anesthesia: No Social History Social History Household Members: None Housing: House Are you a primary manager intensive care to a significant other at home: No Do you presently have visiting nurse or other home services: No Patient Tobacco Use Status: Former Tobacco user Tobacco use type: Cigarette Smoked in Last 30 Days: No e-Cigarette/Vaping Use: Never Used Use of substances other than those prescribed or required for medical reasons: No Have you been hit, kicked, punched, or otherwise hurt by someone within the past year? If so, by whom?: No Are you DNR?: No Advance Directives: No (will bring dos) Advance Directives Information Provided: Yes Advance Directives on File: No Recently lost weight without trying: No Nutrition Risks: Surgical patient >75years Current occupation: rt handed Meds Allergies Allergy/AdvReac Type Severity Reaction Status Date / Time adhesive tape Allergy Severe Blister Verified 06/27/24 06:32 latex Allergy Intermediate Rash Verified 06/27/24 06:32 Home Medications ?Medication ?Instructions ?Recorded ?Confirmed ?Last Taken ?Type amlodipine 5 mg tablet 1 tab PO DAILY 03/26/21 06/24/24 Unknown History aspirin 81 mg chewable tablet 81 mg PO DAILY 03/26/21 06/24/24 03/22/21 History gemfibrozil 600 mg tablet 1 tab PO BID 03/26/21 06/24/24 Unknown History ezetimibe 10 mg tablet 10 mg PO DAILY 01/16/24 06/24/24 Unknown History esomeprazole magnesium 20 mg 10 mg PO DAILY 06/24/24 06/24/24 Unknown History capsule,delayed release (Nexium) lorazepam 0.5 mg tablet mg PO 06/27/24 06/27/24 05:30 History Exam Height,Weight and Vital Signs: Height 5 ft 1 in Weight 68.039 kg Assessment and Plan Assessment Anesthesia Assessment: Chart Reviewed Final Anesthetic Review Family History of Problems with Anesthesia: No History of Problems with Anesthesia: No Documented by User: Mildred Branham MD 06/27/24 07:45 [facility] Past Medical History Medical History Wears glasses Wears dentures Arthritis Back pain Slow to wake up after anesthesia History of blood transfusion (1962) Anxiety GERD (gastroesophageal reflux disease) FHx: bilateral hip replacements Acid reflux Hypercholesteremia Hypertension Family History Family History Mother Lung cancer Surgical History Surgical History Hx of squamous cell carcinoma excision (01/25/24) Hx of colonoscopy History of back surgery (~2013) History of bilateral hip replacements H/O mastectomy (1989) Hx of appendectomy Social History Social History Household Members: None Housing: House Are you a primary manager intensive care to a significant other at home: No Do you presently have visiting nurse or other home services: No Patient Tobacco Use Status: Former Tobacco user Tobacco use type: Cigarette Smoked in Last 30 Days: No e-Cigarette/Vaping Use: Never Used Use of substances other than those prescribed or required for medical reasons: No Have you been hit, kicked, punched, or otherwise hurt by someone within the past year? If so, by whom?: No Are you DNR?: No Advance Directives: No (will bring dos) Advance Directives Information Provided: Yes Advance Directives on File: No Recently lost weight without trying: No Nutrition Risks: Surgical patient >75years Current occupation: rt handed Meds Allergies Allergy/AdvReac Type Severity Reaction Status Date / Time adhesive tape Allergy Severe Blister Verified 06/27/24 06:32 latex Allergy Intermediate Rash Verified 06/27/24 06:32 Home Medications ?Medication ?Instructions ?Recorded ?Confirmed ?Last Taken ?Type amlodipine 5 mg tablet 1 tab PO DAILY 03/26/21 06/24/24 Unknown History aspirin 81 mg chewable tablet 81 mg PO DAILY 03/26/21 06/24/24 03/22/21 History gemfibrozil 600 mg tablet 1 tab PO BID 03/26/21 06/24/24 Unknown History ezetimibe 10 mg tablet 10 mg PO DAILY 01/16/24 06/24/24 Unknown History esomeprazole magnesium 20 mg 10 mg PO DAILY 06/24/24 06/24/24 Unknown History capsule,delayed release (Nexium) lorazepam 0.5 mg tablet mg PO 06/27/24 06/27/24 05:30 History Exam Airway Mallampati Class: II TM Dist: >3cm Neck ROM: Limited Heart: rrr Lungs: cta Assessment and Plan Assessment Anesthesia Assessment: Anesthesia Plan Discussed Final Anesthetic Review NPO: Yes ASA Class: II Final Preanesthetic Review: No Changes in Pt Med Stat, Meds/Allgs Chart Reviewed, Consent Obtained/Reviewed and Anes Risks/Benef Reviewed Patient Risk: Low Procedure Risk: Low Anesthetic Plan Anesthetic Plan: MAC: Disposition: Standard PACU
[2024-06-27] VITALS (10 sets, daily range): BP systolic 119–161; BP diastolic 47–71; PULSE 64–78; RESP 15–18; TEMP 36.1–36.3; O2SAT 93–98; BMI 28.5
[2024-06-27] MEDS: Lactated Ringers 1,000 ML 100 ML IVCONT (06:31)
--- NOTE | 2024-06-27 07:47 | MHC.SHP ---
Pre-Procedural Eval Section A - 24 Hr Update-Section A only Date of Service: 06/27/24 The patient is an INPATIENT: No Changes since office visit: No Cold of Flu in the past 2 weeks, No New Medical Problems, No Changes in Medication and No Patient answered all questions The patient has been examined within 24 hours of the surgical procedure. The History & Physical has been completed within 30 days and I have reviewed it.: Yes Section B - Complete if H&P > 30 days Chief Complaint: Ganglion, left wrist Allergies: Allergies Allergy/AdvReac Type Severity Reaction Status Date / Time adhesive tape Allergy Severe Blister Verified 06/27/24 06:32 latex Allergy Intermediate Rash Verified 06/27/24 06:32 Plan Diagnosis/Plan: Unchanged I have reviewed the history and physical and performed a pertinent physical examination on my patient. No changes have occurred unless specified. Time Spent With Patient Time: Total time managing care of this patient today ____ minutes.
--- NOTE | 2024-06-27 07:47 | W.PM.OPN ---
Operative Note Operative Note Date of Service: 06/27/24 Narrative: Operative Note Narrative: Preop diagnosis: 1. Left Volar wrist ganglion Postop diagnosis: Same Procedure: 1. Left Volar wrist ganglion excision Surgeon: Klarissa Teran MD Gauger Chief Delivery: Figueroa YI Anesthesia: General Anesthesia Findings: Multi lobular volar wrist ganglion noted to be about the radial artery about 2.5 cm proximal to the distal wrist crease Implants: None Tourniquet time: 14 minutes EBL: 5.0 ml Specimen: Volar wrist ganglion Drains: None Complications: None Disposition: Brought to the recovery room in stable condition Plan: Follow-up in 10-14 days for wound check, suture removal and to check pathology Indications: The patient is 83 years old with left volar wrist ganglion . The risks and benefits of operative treatment, including but not limited to risk of damage to blood vessels, nerves, tendons, infection, recurrence, persistent pain or numbness, incomplete resolution of preoperative symptoms, or need for further surgery were discussed with the patient and they wished to proceed with surgery. Procedure: Once consent was obtained patient was brought back to the operating suite and placed in the operating table in a supine position. . Perioperative antibiotics and anesthesia was administered by the anesthesia team. A tourniquet was applied to the proximal aspect of the left upper extremity and the limb was prepped and draped in a standard surgical fashion. The limb was elevated exsanguinated with Esmarch bandage and the tourniquet inflated to 250 mm of mercury for a total tourniquet time of 14 minutes. A 3 cm longitudinal incision was made centered over the patient's left volar wrist ganglion. The incision was made through the skin the subcutaneous tissues using a 15. Blade. Careful dissection was then made down to the level of the volar wrist ganglion using tenotomy scissors. The ganglion was noted to be multi lobular and situated about the radial artery approximately 2.5 cm proximal to the distal wrist crease. Bipolar electrocautery was utilized to cauterize several of the small arterial branches from about the ganglion. The ganglion was then carefully dissected free from the radial artery using tenotomy and iris scissors. The stalk to the ganglion was then isolated and cauterized using bipolar electrocautery. The ganglion was then removed and placed on the back table to be sent for histopathology. It contained clear viscous fluid consistent with a ganglion. At this point the tourniquet was deflated and hemostasis obtained with a brief period of local pressure and bipolar electrocautery. The wound was copiously irrigated with normal saline. The skin edges were reapproximated with 5-0 nylon suture. The wound was infiltrated with some 1% lidocaine with epinephrine for postop pain control and a sterile dressing was applied. The patient appears to have tolerated the procedure well and with no complications. All digits were well vascularized conclusion of the case.
== END 2024-06-27 11:13 | disposition home or self-care (01) ==
PROVIDERS: PCP Internal Medicine; Visit Provider Orthopaedic Surgery
PROC: (CPT 25111; principal; 2024-06-27 07:30)
DX: M67.432 Ganglion, left wrist (principal); I10 Essential (primary) hypertension; E78.00 Pure hypercholesterolemia, unspecified; K21.9 Gastro-esophageal reflux disease without esophagitis; Z85.828 Personal history of other malignant neoplasm of skin; M18.12 Unilateral primary osteoarthritis of first carpometacarpal joint, left hand; Z96.643 Presence of artificial hip joint, bilateral; Z90.12 Acquired absence of left breast and nipple; Z79.82 Long term (current) use of aspirin; Z79.899 Other long term (current) drug therapy; L23.1 Allergic contact dermatitis due to adhesives; Z91.040 Latex allergy status; Z87.891 Personal history of nicotine dependence; Z98.890 Other specified postprocedural states
CPT/HCPCS: 25111; 88304; J0131; J0690; J1100; J2003; J2004; J2405; J2704; J2795; J3010

== ENCOUNTER → 2024-06-27 05:54 | Outpatient (BNV) | payer MEDICARE, SELFPAY | PROVIDERS: PCP Internal Medicine; Visit Provider Orthopaedic Surgery | DX: M67.432 Ganglion, left wrist (principal) | CPT/HCPCS: 25111 ==

== ENCOUNTER 2024-07-10 11:59 | Outpatient (AMB) | payer MEDICARE, SELFPAY ==
--- NOTE | 2024-07-10 12:01 | A.OFFVIS_ITS ---
Intake Visit Reasons: PO LT ganglion removal 06/27/24 AR Intake Note: Danna is an 83 year old right hand dominant female who presents today postoperatively s/p left ganglion removal performed 06/27/[address] Teran. Patient reports she is doing well just a little discomfort. Sutures removed in office today and steri strips applied. Allergies adhesive tape Allergy (Severe, Verified 07/10/24 12:22) Blister latex Allergy (Intermediate, Verified 07/10/24 12:22) Rash HPI HPI PO LT ganglion removal 06/27/24 AR: Details: Danna is an 83 year old right hand dominant woman who presents S/P left volar wrist ganglion excision, DOS: 06/27/24. She says she is doing well overall, with just some minor discomfort. She denies any numbness or tingling. [facility] Medical History Wears glasses Wears dentures Arthritis Back pain Slow to wake up after anesthesia History of blood transfusion (1962) Anxiety GERD (gastroesophageal reflux disease) FHx: bilateral hip replacements Acid reflux Hypercholesteremia Hypertension Surgical History Hx of squamous cell carcinoma excision (01/25/24) Hx of colonoscopy History of back surgery (~2013) History of bilateral hip replacements H/O mastectomy (1989) Hx of appendectomy Family History Mother Lung cancer Social History Household Members: None Housing: House Are you a primary human services care specialist to a significant other at home: No Do you presently have visiting nurse or other home services: No 75 years or older and lives alone: Yes Patient Tobacco Use Status: Former Tobacco user Tobacco use type: Cigarette e-Cigarette/Vaping Use: Never Used Current occupation: rt handed Review of Systems Const All systems reviewed & are unremarkable except as noted in HPI and below Physical Exam Const General: no acute distress and alert Orientation/consciousness: patient oriented x3 Neuro General: patient oriented x3 Extrem Other: The patient was alert oriented and in no acute distress The incision is healing well with no erythema drainage or evidence of infection. Sutures removed and Steri-Strips applied No recurrence of the ganglion. She can make a fist and extend all her digits Sensation is intact Cap refill is brisk Pathology report: 06/27/24 Diagnosis Soft tissue, left wrist, excision: Dense fibrovascular tissue with pseudocyst formation and myxoid change, consistent with ganglion Psych Appearance: grossly normal Affect: normal affect Attitude: cooperative Assessment & Plan Assessment & Plan (1) Ganglion cyst of volar aspect of left wrist: Code(s): M67.432 - Ganglion, left wrist Category: Medical Plan Assessment and plan: 1. Left volar wrist ganglion, S/P excision DOS: 06/27/24 The patient appears to be doing well post-operatively I educated her about the post-operative course I discussed activity modifications, she is to lift nothing heavier than a cellphone for the next two weeks She will perform gentle ROM exercises at home She should avoid any underwater activities for the next 5 days She should gently massage about the incision site to reduce the risk of hypersensitivity She can follow up prn 2. Left basal joint arthritis Mildly symptomatic. 3. Left hand squamous cell carcinoma, S/P excision & biopsy DOS: 12/14/[address] Juarez, her PCP DOS: 01/25/24 This has gone on to heal well. This procedure was performed out of concern for squamous cell carcinoma extending to the margin of the 1st biopsy. Regarding the specimen from our excision: No cancer cells were found, and it was all scar tissue that was excised. She is very pleased with the results. Scribed for Klarissa Teran MD by Eddie Merino, medical liaison, on 07/10/24 at [ ], EST. Coding Level of Care Code Global (09796) Diagnoses Ganglion cyst of volar aspect of left wrist M67.432
--- OUTSIDE RECORDS SUMMARY | 2024-07-16 18:20 | XMS_ITS | Patient Health Record ---
Author Organization [facility] Address [address] [place] [address] Care Team Providers Care Journeyman Painter Name Role Phone Matthew Juarez MD Primary Care Provider UnavailJayro Avendaño Unavailable [phone] REASON FOR REFERRAL No Information MEDICATIONS Medication SIG (Take, Route, Frequency, Duration) Notes Start Date End Date Status Omeprazole 40 MG TAKE 1 CAPSULE BY [facility] EVERY DAY Orally Once a day Acti ve Ezetimibe 10 MG Oral for 90 Ac tive Aspirin 81 MG Oral for 30 Acti ve amLODIPine Besylate 5 MG Oral for 90 Active Gemfibrozil 600 MG Oral for 90 Active IMMUNIZATIONS Vaccine Route Administration Date Status Comme nts Influenza Unknown 04/07/2020 Administered SOCIAL HISTORY Tobacco Use: Social History Observation Description Date Details (start date - stop date) Former Smoker NA - NA Sex Assigned At : Social History Observation Description Sex Assigned At Unknown Tobacco Use/Smoking Question Answer Notes Patient is a former smoker How long has it been since you last smoked? > 10 years Alcohol Screen Question Answer Notes Did you have a drink contain ing alcohol in the past year? Yes How often did you have a dri nk containing alcohol in the past year? 2 to 4 times a month (2 points) How many drinks did you have on a typical day when you were drinking in the past year? 1 or 2 drinks (0 point) How often did you have 6 or more drinks on one occasion in the past year? Never (0 point) Points 2 Interpretation Negative PROBLEMS Problem Type ICD Code Onset Dates Problem Status W/U Status Risk SNOMED Code Notes Problem Upper abdominal pain (R10.10) Active confirmed 54794980 Problem Gastroesophageal reflux disease, unspecified whether esophagitis present (K21.9) Active confirmed 900200124 PLAN OF TREATMENT Pending Test Test Name Order Date Pathology 03/26/2021 Future Test Test Name Order Date UPPER GI ENDOSCOPY 03/23/2021 Insurance Providers Payer Name Payer Address Payer Phone Subscriber Number Group Number Insured Name Patient Relationship to Insured Coverage Start Date Coverage End Date MEDICARE OF [place] [address] [place] [address] [phone] [id number] [employer] [employer] Self - patient is the insured [employer] ATT[employer] CLAIMS [address] [place] [address] [id number] [place], [place] Self - patient is the insured MEDICAL (GENERAL) HISTORY Medical History History ICD Code Hypertension Arthritis Asthma GERD Hyperlipidemia Breast cancer-left--1989--surgery as cindy emerson Denies CT,DM,CVA,Lung disease,renal dise ase Negative colonoscopy in her 60's Surgical History Surgery Date(Month/Year) Right hip replacement 2016 Left hip replacement 2020 Left mastectomy Appendectomy 2017
== END 2024-07-10 12:22 | disposition home or self-care (01) ==
PROVIDERS: PCP Internal Medicine; Visit Provider Orthopaedic Surgery
DX: M67.432 Ganglion, left wrist (principal)
CPT/HCPCS: 99024

== ENCOUNTER → 2024-07-10 11:59 | Outpatient (BNVA) | payer MEDICARE, SELFPAY | PROVIDERS: PCP Internal Medicine; Visit Provider Orthopaedic Surgery | DX: Z48.02 Encounter for removal of sutures (principal); M67.432 Ganglion, left wrist | CPT/HCPCS: 99212 ==

== ENCOUNTER 2024-08-17 10:10 | Outpatient (REF) | payer MEDICARE, SELFPAY | END 2024-08-17 10:11 | disposition home or self-care (01) | LOC: HO.MAMMO 10:10 | PROVIDERS: PCP Internal Medicine; Visit Provider Internal Medicine | DX: Z12.31 Encounter for screening mammogram for malignant neoplasm of breast (principal) | CPT/HCPCS: 77063; 77067 ==

== ENCOUNTER → 2024-08-17 10:30 | Outpatient (BNV) | payer MEDICARE, SELFPAY | PROVIDERS: PCP Internal Medicine; Visit Provider Internal Medicine | DX: Z12.31 Encounter for screening mammogram for malignant neoplasm of breast (principal) | CPT/HCPCS: 77063; 77067 ==

== ENCOUNTER 2024-10-04 11:00 | Outpatient (REF) | payer MEDICARE, SELFPAY ==
--- NOTE | ~2024-10-04 | XR_ITS ---
.EXAMINATION: XR HIP, LEFT CLINICAL INFORMATION: Left hip pain. COMPARISON: January 26, 2021. TECHNIQUE: Two views of the left hip. FINDINGS: There is a metallic prosthesis well-seated in the osseous structures of the left acetabulum proximal femur. No acute cortical disruption. No loosening. No lytic or blastic lesions. Normal alignment. XR/XR hip LT min 2V IMPRESSION: Total left hip arthroplasty prosthesis, intact without fracture or dislocation. Electronically signed by: Jimy Petty MD 10/07/2024 01:27 PM YOLIE CALVILLO
--- NOTE | ~2024-10-04 | XR_ITS ---
.EXAMINATION: XR ANKLE, LEFT CLINICAL INFORMATION: Left ankle pain. COMPARISON: None available. TECHNIQUE: AP, lateral, and mortise views of the left ankle. FINDINGS: No acute cortical disruption or malalignment. No lytic or blastic lesions. Plantar calcaneal spur. XR/XR ankle LT min 3V IMPRESSION: Plantar calcaneus spur. No acute fracture or dislocation. Electronically signed by: Jimy Petty MD 10/07/2024 01:28 PM EST
--- OUTSIDE RECORDS SUMMARY | 2024-10-04 12:43 | XMS_ITS | Clinical Summary ---
Author Organization [facility] Facility Address [address] [address] Care Team Providers Care Players Club Representative Name Role Phone Matthew Juarez MD Primary Care Provider [phone] Allergies Active Allergy Reactions Criticality Noted Date Comments Adhesive Tape Rash High 01/10/2017 Medications omeprazole (PriLOSEC) [address] capsule 04/24/2021 Active gemfibrozil (LOPID) 600 MG tablet Take 1 tablet by mouth 2 (two) times a day Active aspirin (ST JUAN F) 81 MG EC tablet Take 81 mg by mouth twice a day 02/03/2017 Active amLODIPine (Norvasc) 2.5 MG tablet Take 5 mg by mouth 1 (one) time each day 03/13/2019 Active Active Problems Problem Noted Date Diagnosed Date Chronic kidney disease stage 3 05/03/2021 Arthritis 05/03/2021 Asthma 05/03/2021 Overview (05/03/2021): inhaler Female stress incontinence 05/03/2021 Gastroesophageal reflux disease 05/03/2021 Overview (05/03/2021): on meds Hyperlipidemia 05/03/2021 Overview (05/03/2021): on meds Hiatal hernia 05/03/2021 Hypertensive disorder 05/03/2021 Overview (05/03/2021): on meds Lumbar radiculopathy 05/03/2021 Malignant neoplastic disease 05/03/2021 Overview (05/03/2021): breast ca l mastectomy no chemo or rad. Restless leg syndrome 05/03/2021 Chronic kidney disease 05/03/2021 Overview (05/03/2021): sees a renal doc pt unsure of name Stage 3a chronic kidney disease 05/03/2021 History of repair of hip joint 01/31/2017 Immunizations Name Administration Dates Next Due Pneumococcal Conjugate 13-Valent 02/01/2017 Family History Medical History Relation Comments Heart disease Father Cancer Mother Diabetes Mother Kidney disease Sibling Relation Status Comments Father Mother Sibling Social History Tobacco Use Types Packs/Day Years Used Date Smoking Tobacco: Former Cigarettes Q uit: 03/13/1998 Alcohol Use Standard Drinks/Week Comments Yes 0 (1 standard drink = 0.6 oz pure alcohol) Alcoholic Drinks/day: Occasional social drink Comments Unknown Sex and Gender Information Value Date Recorded Sex Assigned at Not on file Legal Sex Female 4:55 PM EST Gender Identity Not on file Sexual Orientation Not on file Last Filed Vital Signs Vital Sign Reading Time Taken Comments Blood Pressure 140/60 05/03/2021 2:06 PM EDT Pulse 62 05/03/2021 2:06 PM EDT Temperature - - Respiratory Rate - - Oxygen Saturation 94% 05/03/2021 2:06 PM EDT Inhaled Oxygen Concentration - - Weight 69 kg (152 lb 3.2 oz) 05/03/2021 2:06 PM EDT Height 154.9 cm (5' 1 ) 04/22/2019 12:00 PM EDT Body Mass Index 28.76 04/22/2019 12:00 PM EDT Plan of Treatment Health Maintenance Due Date Last Done Comments Pneumococcal Vaccine: 65+ Ye ars (2 of 2 - PPSV23 or PCV20) 03/29/2017 02/01/2017 Influenza Vaccine (#1) 2024 Hepatitis B Vaccine Aged Out No longe r eligible based on patient's age to complete this topic Insurance [facility] MEDICARE [facility] [place] [phone] Care Teams Players Club Representative Relationship Specialty Start Date End Date Matthew Juarez MD [address] [place] [address] PCP - General 08/17/20
--- OUTSIDE RECORDS SUMMARY | 2024-10-04 12:43 | XMS_ITS | Patient Health Record ---
Author Organization [facility] Address [address] [place] [address] Care Team Providers Care Classifying Machine Operator Name Role Phone Matthew Juarez MD Primary Care Provider UnavailJayro Avendaño Unavailable [phone] REASON FOR REFERRAL No Information MEDICATIONS Medication SIG (Take, Route, Frequency, Duration) Notes Start Date End Date Status Omeprazole 40 MG TAKE 1 CAPSULE BY [facility] EVERY DAY Orally Once a [...] Problem Upper abdominal pain (R10.10) Active confirmed [id number] Problem Gastroesophageal reflux disease, unspecified whether esophagitis present (K21.9) Active confirmed [id number] PLAN OF TREATMENT Pending Test Test Name Order Date Pathology 03/26/2021 Future Test Test Name Order Date UPPER GI ENDOSCOPY 03/23/2021 Insurance Providers Payer Name Payer Address Payer Phone Subscriber Number Group Number Insured Name Patient Relationship to Insured Coverage Start Date Coverage End Date MED[place]ARE OF [place] [address] [place] [address] [id number] [employer] Self - patient is the insured [employer] ATTN CLAIMS [address] [place] [address] [id number] [place], [place] Self - patient is the insured MEDICAL (GENERAL) HISTORY Medical History History ICD Code Hypertension Arthritis Asthma GERD Hyperlipidemia 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
== END 2024-10-04 11:01 | disposition home or self-care (01) ==
LOC: HO.HMGCX 11:00
PROVIDERS: PCP Internal Medicine; Visit Provider Internal Medicine
DX: M25.552 Pain in left hip (principal); M25.572 Pain in left ankle and joints of left foot
CPT/HCPCS: 73502; 73610

== ENCOUNTER → 2024-10-04 11:06 | Outpatient (BNV) | payer MEDICARE, SELFPAY | PROVIDERS: PCP Internal Medicine; Visit Provider Radiology Diagnostic Radiology | DX: M25.552 Pain in left hip (principal); Z96.642 Presence of left artificial hip joint; M77.32 Calcaneal spur, left foot | CPT/HCPCS: 73502; 73610 ==

== ENCOUNTER 2025-02-22 09:01 | Emergency (ER) | payer MEDICARE, SELFPAY ==
--- NOTE | ~2025-02-22 | CT_ITS ---
CLINICAL HISTORY: Stroke Protocol CT angiography head and neck with contrast. 3D Post-processing. Comparison: CT/SR - HEAD STROKE_BRAIN (ADULT) - 02/22/25 09:53 EDT Findings: CTA head: No intracranial large vessel occlusion. No dissection or aneurysm. The intracranial segments of the internal carotid arteries are patent bilaterally. Intradural vertebral arteries are patent. The left vertebral artery terminates in PICA, normal variant. Anterior and posterior circulation appear patent. No abnormal postcontrast enhancement. CTA neck: There is a normal branching pattern of the aortic arch. The right common, internal and external carotid arteries are patent with atherosclerotic disease but no significant stenosis. The left common, internal and external carotid arteries are patent with atherosclerotic disease but no significant stenosis. The vertebral arteries are patent. The right vertebral artery is dominant. Lung apices demonstrate moderately severe centrilobular emphysema. Multilevel degenerative changes within the spine. Impression: There is no intracranial large vessel occlusion detected. No significant stenosis of the neck vasculature. Incidental findings as detailed. This document has been electronically signed by: Gaston Sesay MD on 02/22/2025 10:26:16
--- NOTE | ~2025-02-22 | CT_ITS ---
CLINICAL HISTORY: Stroke Protocol CT head without contrast Comparison: None Findings: No evidence of acute territorial infarct. There is patchy low density in the periventricular and subcortical white matter. Diffuse volume loss is noted. No hydrocephalus. No hemorrhage, mass effect, mass lesion or midline shift. No abnormal extra-axial fluid. No calvarial fracture. Paranasal sinuses and mastoid air cells are clear. Gas noted within the left globe. Correlation for prosthesis. Impression: No acute intracranial process. Chronic changes as detailed. This document has been electronically signed by: Gaston Sesay MD on 02/22/2025 10:07:21
[2025-02-22 09:06] VITALS: BP 133/69; BP 140/80; PULSE 70; PULSE 81; RESP 16; TEMP 36.7; O2SAT 93; O2SAT 96; BMI 28.3
--- NOTE | 2025-02-22 09:06 | ED.FALL ---
HPI - Fall General Chief Complaint: Fall Stated Complaint: FALL Time Seen by Provider: 02/22/25 09:04 Source: patient and RN notes reviewed Mode of arrival: ambulatory Limitations: no limitations History of Present Illness ED Provider: Sirena Villeda PA-C HPI Narrative: This is a 84-year-old female, with a past medical history of hypertension, hyperlipidemia, bilateral hip replacements, GERD, and left macular surgery performed by Dr. Davidson from [facility] on 02/20/2025, who presents emergency department after a fall which occurred this morning. Family reports that patient was left alone for approximately 5 minutes this morning, and patient states that she bent over to reach for something, and given her poor depth perception since the surgery she fell to the ground. She was on the ground for approximately 5 minutes. She is on her back when family arrived. Family reports that for about an hour she was trying to play a card game and was not making any sense. They state that this is very unusual for her. Family reports that she is at her baseline now. Patient is not on anticoagulation. She is on a baby aspirin. She is feeling well, no current complaints. No changes to her vision, headache, dizziness, chest pain, shortness for breath, abdominal pain, nausea, vomiting or diarrhea. No other complaints or concerns at this time. MD complaint: fall Onset (ago): day(s) Fall from: chair Fall witnessed: no Place fall occurred: home Loss of consciousness: none Prolonged down time: minute(s) Symptoms prior to fall: none Associated symptoms (after fall): denies Related Data Home Medications ?Medication ?Instructions ?Recorded ?Confirmed amlodipine 5 mg tablet 1 tab PO DAILY 03/26/21 06/24/24 aspirin 81 mg chewable tablet 81 mg PO DAILY 03/26/21 06/24/24 gemfibrozil 600 mg tablet 1 tab PO BID 03/26/21 06/24/24 ezetimibe 10 mg tablet 10 mg PO DAILY 01/16/24 06/24/24 esomeprazole magnesium 20 mg 10 mg PO DAILY 06/24/24 06/24/24 capsule,delayed release (Nexium) lorazepam 0.5 mg tablet mg PO 06/27/24 Allergies Allergy/AdvReac Type Severity Reaction Status Date / Time adhesive tape Allergy Severe Blister Verified 02/22/25 09:10 latex Allergy Intermediate Rash Verified 02/22/25 09:10 Review of Systems Review of Systems: Yes all other systems are reviewed and are negative Constitutional: Constitutional: Reports as per [facility] Past Medical History Attestation statement: The following information was validated with the patient. Medical History Wears glasses Wears dentures Arthritis Back pain Slow to wake up after anesthesia History of blood transfusion (1962) Anxiety GERD (gastroesophageal reflux disease) FHx: bilateral hip replacements Acid reflux Hypercholesteremia Hypertension Surgical History Hx of squamous cell carcinoma excision (01/25/24) Hx of colonoscopy History of back surgery (~2013) History of bilateral hip replacements H/O mastectomy (1989) Hx of appendectomy Family History Family History Mother Lung cancer Social History Social History Household Members: None Housing: House Are you a primary md do resident urgent care to a significant other at home: No Do you presently have visiting nurse or other home services: No Patient Tobacco Use Status: Former Tobacco user Tobacco use type: Cigarette e-Cigarette/Vaping Use: Never Used Advance Directives: Yes Advance Directives Information Provided: No Advance Directives on File: No Current occupation: rt handed Physical Exam Vital Signs: Vital Signs: Last Vital Signs Temp 97.6 F 02/22/25 12:02 Pulse 78 02/22/25 12:02 Resp 16 02/22/25 12:02 BP 136/69 02/22/25 12:02 Pulse Ox 97 02/22/25 12:02 O2 Del Method Room Air 02/22/25 12:02 BMI result Body Mass Index 28.3 Const: General: cooperative, comfortable and no acute distress Orientation/consciousness: patient oriented x3 Limitations: no limitations HEENT: Head: Yes normal to inspection, Yes normocephalic and Yes atraumatic Ears: hearing grossly normal bilaterally General nose exam: Normal external nose present Face and sinus: Yes normal facial exam Mouth: Normal oral and palatal mucosa present, oropharynx normal and moist mucous membranes Throat: Yes posterior oropharynx normal Eyes: General: appearance normal, both eyes and all related structures Eyelids: Yes eyelids normal Conjunctivae: conjunctivae normal Sclerae: sclerae normal Pupils: Equal, round and reactive pupils present EOM: EOMs intact bilaterally Neck: Neck: Yes normal visual inspection, Yes full ROM and Yes no lymphadenopathy Lymphatic: no lymphadenopathy noted Chest: Chest palpation & inspection: normal inspection of the chest Resp: Effort & Inspection: normal respiratory effort and able to speak in complete sentences Auscultation: clear to auscultation bilaterally, no crackles, no rales, no rhonchi and no wheezes Cardio: Rate: regular rate Rhythm: regular rhythm Heart sounds: S1 normal heart sound present and S2 normal heart sound present GI: Inspection: Yes normal to inspection Skin: General skin exam: no rashes or lesions noted Trauma: no lacerations or abrasions Wounds: no wounds Neuro: General: patient oriented x3 and moves all extremities Cranial nerves: Yes CN's II-XII intact bilaterally and Yes Equal, round and reactive pupils present Cognition (Neuro): normal cognition Gait exam (Neuro): Normal gait present Motor exam (neuro): 5/5 motor strength present throughout and Pronator motor function not present Coordination: [id number] test normal and [id number]-[id number] test normal Pupils: Normal pupillary reactivity/response: bilateral Extrem: General: Yes normal to inspection Right upper extremity: normal to inspection Left upper extremity: normal to inspection Right lower extremity: normal to inspection Left lower extremity: normal to inspection NIH Stroke Scale Internal: Initial- Upon Arrival Time: 09:38 Level of Consciousness: Alert Level of Consciousness Questions: Answers both questions correctly Level of Consciousness Commands: Performs both tasks correctly Best Gaze: Normal Visual: No visual loss Facial Palsy: Normal Motor Arm (Right): No drift Motor Arm (Left): No drift Motor Leg (Right): No drift Motor Leg (Left): No drift Limb Ataxia: Absent Sensory: Normal Best Language: No aphasia Dysarthia: Normal Extinction and Inattention: No abnormality Score: 0 Medications Administered Discontinued Medications Generic Name Dose Route Start Last Admin Trade Name Freq PRN Reason Stop Dose Admin Iohexol 100 ml 02/22/25 10:03 02/22/25 10:03 Iohexol 350 Mg/Ml 100 Ml Infus..Btl IV 02/22/25 10:04 70 ml ONCE ONE Administration Medical Decision Making Medical Decision Making MDM Narrative: This is a 84-year-old female, with a past medical history of hypertension, hyperlipidemia, who presents emergency department for evaluation of fall which occurred earlier today. Patient states that her perception is off given her recent surgery and reached down to grab something and fell forward. She denies any symptoms prior to the fall. Mother reports that patient was not making any sense for approximately 1 hour after the fall. They state that she is at her baseline. Patient is alert and oriented x4, no neurologic focal deficits on examination. Given that patient had an episode where she was ?not making sense? for approximately 1 hour now is back at her baseline, concern for TIA versus CVA. She also fell, will rule out ICH. Patient was made a stroke alert given her symptoms. Will closely monitor. Course: Labs returned, she has no leukocytosis, H&H stable, chemistry revealing no significant electrolyte derangement. Head CT revealing no acute findings. There is gas noted within the left lobe which is consistent with her recent surgery. CTA with no intracranial large vessel occlusion, no significant stenosis. I discussed this overall workup with my attending physician, Dr. Grewal. Outweigh the risks and benefits of staying within the hospital. Given that this is an unclear symptomology, and we are unsure if this is a TIA presentation. Patient is already on baby aspirin. Instructed patient to follow-up with her PCP as she may need to have an MRI further recommendations and my attending physician. Patient is feeling well, has had no return of her symptoms, and is going home with her daughter. Given strict return precautions. She understands and agrees with plan. Patient stable for discharge. Differential Diagnosis Differential Diagnoses: The differential diagnosis associated with the presentation includes Fall, ICH, CVA, TIA, electrolyte derangement Admission/Observation Consideration of admission/observation: Escalation of care including admission/observation considered Lab Data [facility] Lab Attestation statement: I reviewed the patient's lab results. See MDM and course 02/22/25 09:41 02/22/25 09:41 Labs: Lab Results 02/22/25 02/22/25 02/22/25 Range/Units 09:39 09:40 09:41 WBC 6.0 (4.8-10.8) X10*3/uL RBC 4.69 (4.20-5.50) X10*6/uL Hgb 14.0 (12.0-16.0) g/dl Hct 41.5 (37.0-47.0) % MCV 88.5 (80.0-98.0) fL MCH 29.9 (27.0-33.0) pg MCHC 33.7 (31.0-35.0) g/dl RDW 13.5 (11.0-16.0) % Plt Count 205 (160-400) X10*3/uL MPV 9.2 L (9.4-12.3) fL Immature Gran % (Auto) 0.3 (0.0-0.4) % Neut % (Auto) 60.0 (45-73) % Lymph % (Auto) 29.3 (20-40) % Boyd % (Auto) 7.2 (2-11) % Eos % (Auto) 3.0 (0-4) % Baso % (Auto) 0.2 (0-2) % Lymph # (Auto) 1.8 (1.2-4.9) X10*3/uL Boyd # (Auto) 0.4 (0.1-1.2) X10*3/uL Eos # (Auto) 0.2 (0.0-0.4) X10*3/uL Baso # (Auto) 0.0 (0.0-0.2) X10*3/uL Abs Immat Gran (auto) 0.02 (0.00-0.03) X10*3/uL Absolute Neuts (auto) 3.6 (2.0-8.3) x10*3/uL Absolute Nucleated RBC 0.000 (0.0-0.012) X10*3/uL Nucleated RBC % (auto) 0.0 (0.0-0.2) /100WBC PT 10.7 L (10.9-12.4) SEC Whole Blood PT 11.5 (11.1-13.5) sec INR 0.9 (0.9-1.1) Whole Blood INR 1.0 (0.9-1.1) APTT 32.8 (26.0-36.8) SEC Sodium 142 (135-145) mmol/L Potassium 4.1 (3.3-5.1) mmol/L Chloride 109 H (96-108) mmol/L Carbon Dioxide 24 (22-29) mmol/L Anion Gap 13 (12-20) BUN 21 H (9-16) mg/dL Creatinine 0.93 (0.5-1.4) mg/dL Estim Creat Clear Calc 40.4 Estimated GFR 58 POC Glucose 114 (60-115) mg/dL Random Glucose 102 (60-115) mg/dL Calcium 9.6 (8.4-10.2) mg/dL Troponin I High Sens < 2.7 (<3.5-17.0) ng/L Triglycerides 59 (<150) mg/dL Cholesterol 195 (<200) mg/dL LDL Cholesterol, Calc 116 H (<100) mg/dL HDL Cholesterol 68 (>40) mg/dL Radiology Impression Discussion of test interpretation with radiology: I have reviewed the radiologist's reading. Radiologist Impression: Findings: CTA head: No intracranial large vessel occlusion. No dissection or aneurysm. The intracranial segments of the internal carotid arteries are patent bilaterally. Intradural vertebral arteries are patent. The left vertebral artery terminates in PICA, normal variant. Anterior and posterior circulation appear patent. No abnormal postcontrast enhancement. CTA neck: There is a normal branching pattern of the aortic arch. The right common, internal and external carotid arteries are patent with atherosclerotic disease but no significant stenosis. The left common, internal and external carotid arteries are patent with atherosclerotic disease but no significant stenosis. The vertebral arteries are patent. The right vertebral artery is dominant. Lung apices demonstrate moderately severe centrilobular emphysema. Multilevel degenerative changes within the spine. Impression: There is no intracranial large vessel occlusion detected. No significant stenosis of the neck vasculature. Incidental findings as detailed. This document has been electronically signed by: Gaston Sesay MD on 02/22/2025 10:26:16 Dictated By: Gaston Sesay MD ADDENDUMThis document has been electronically signed by: Gaston Sesay MD on 02/22/2025 10:07:21 ADDENDUM: This report was discussed with KASSIDY Siegel on Feb 22, 2025 10:10:00 EDT. This document has been electronically signed by: Nicki Varma on 02/22/2025 10:11:07 Addendum Dictated By: Gaston Sesay MD Addendum Signed By: <Electronically signed by Gaston Sesay MD in OV> 02/22/25 1012 Addendum Cosigned By: CLINICAL HISTORY: Stroke Protocol CT head without contrast Comparison: None Findings: No evidence of acute territorial infarct. There is patchy low density in the periventricular and subcortical white matter. Diffuse volume loss is noted. No hydrocephalus. No hemorrhage, mass effect, mass lesion or midline shift. No abnormal extra-axial fluid. No calvarial fracture. Paranasal sinuses and mastoid air cells are clear. Gas noted within the left globe. Correlation for prosthesis. Impression: No acute intracranial process. Chronic changes as detailed. This document has been electronically signed by: Gaston Sesay MD on 02/22/2025 10:07:21 Dictated By: Gaston Sesay MD Discharge Plan Discharge Clinical Impression: Fall Patient Disposition: Home, Self-Care Instructions: Fall Prevention (ED) Additional Instructions: You were seen in the emergency department after a fall. There was concerns that you did have changes in your mental status, we obtain a CT of your head and a CT and CT angiogram for your symptoms and these were normal. Your overall workup today was reassuring. It is unclear what caused you to have the symptoms therefore it is very important that you follow-up with your primary care physician. They may want to order an MRI to ensure that this was not a TIA. If any new or worsening symptoms occur including but not limited to changes in your mentation, severe headache, dizziness, changes in vision, please seek emergent care. Please use all your precautions that your eye surgeon had instructed you on. Please follow-up them as scheduled. Prescriptions: No Action amlodipine 5 mg tablet 1 tab PO DAILY gemfibrozil 600 mg tablet 1 tab PO BID aspirin 81 mg tablet,chewable 81 mg PO DAILY esomeprazole magnesium [Nexium] 20 mg Capsule,Delayed Release(Dr/Ec) 10 mg PO DAILY lorazepam 0.5 mg tablet PO ezetimibe 10 mg tablet 10 mg PO DAILY Interventions: ED Discharge Assessment Last Done: 02/22/25 12:02 Discharge Date/Time: 02/22/25 12:04 Print Language: Ghanaian
--- NOTE | 2025-02-22 09:30 | ECG_ITS ---
Test Reason : R/O STROKE Blood Pressure : */* mmHG Vent. Rate : 73 BPM Atrial Rate : 73 BPM P-R Int : 168 ms QRS Dur : 78 ms QT Int : 380 ms P-R-T Axes : 44 8 57 degrees QTcB Int : 418 ms Sinus rhythm Premature atrial complexes Otherwise normal ECG When compared with ECG of 12-Mar-2021 12:00, Premature atrial complexes Present Referred By: Sirena Villeda Electronically Signed By: COLT VALDEZ
--- OUTSIDE RECORDS SUMMARY | 2025-02-22 09:40 | XMS_ITS | Clinical Summary ---
Author Organization [facility] Facility Address [address] [address] Care Team Providers Care Fingerprinter Name Role Phone Matthew Juarez MD Primary Care Provider [phone] Allergies Active Allergy Reactions Criticality Noted Date [...] of repair of hip joint 01/31/2017 Immunizations Immunization Administration Dates Next Due Pneumococcal Conjugate 13-Valent [...] Due Date Last Done Comments Pneumococcal Vaccine: 50+ Ye ars (2 of 2 - PPSV23, PCV20, or PCV21) 03/29/2017 02/01/2017 Influenza Vaccine (#1) 2025 Pneumococcal Vaccine: Peds ( 0 to 5 Years) and At-Risk Patients (6 to 49 Years) Discontinued 02/01/2017 Hepatitis B Vaccine Aged Out No longe r eligible based on patient's age to complete this topic Insurance [facility] [place] [address] [place] [address] Medicare Care Teams Fingerprinter Relationship Specialty Start Date End Date Matthew Juarez MD [address] [place] [address] PCP - General 08/17/20
--- OUTSIDE RECORDS SUMMARY | 2025-02-22 09:40 | XMS_ITS | Patient Health Record ---
[facility] Address [address] [place] [address] Care Team Providers Care Operations Architect Name Role Phone Matthew Juarez MD Primary Care Provider UnavailLotus [place] Unavailable [phone] Allergies Allergen (clinical drug ingredient) Drug/Non Drug Allergy documented on EMR Reaction Allergy Type Onset Date Status acetaminophen / oxycodone Percocet loopy Drug Allergy Active adhesive tape blister Drug Allergy Act kaylen latex blister Drug Allergy Active Reason For Referral No Information Medications Medication SIG (Take, Route, Fr equency, Duration) Notes Start Date End Date Status Calcium Active Aspirin 81 MG 1 tablet Orally Once a day Active Zetia Active Tylenol 325 MG 1 tablet as needed O rally every 6 hrs; Duration: 1 dose 05/16/2014 Active Problems Problem Type SNOMED Code ICD Code Onset Dates Problem Status W/U Status Risk Notes Problem Hallux valgus (897987997) Hallux Valgus (735.0) Active confirmed Problem Hammer toe (093725648) Hammer toe (735.4) Active confirmed Problem Calcaneal spur (17944820) Calcaneal spur (726.73) Active confirmed Problem Pain in limb (08580429) Pain in Limb (729.5) Active confirmed Problem Plantar fasciitis (389580642) Plantar Fasciitis (728.71) Active confirmed Plan Of Treatment Pending Test Test Name Order Date X ray : Foot, right 2V 02/22/2012 X ray : Foot, right 2V 03/05/2012 X ray : Foot, right 3V 12/26/2011 Insurance Providers Payer Name Payer Address Payer Phone Subscriber Number Group Number Insured Name Patient Relationship to Insured Coverage Start Date Coverage End Date Medicare National Govt S[employer] [address] [place] [address] [phone] [id number] Patel inDanna Self - patient is the insured [employer] [address] [place] [address] [id number] Patel inDanna Self - patient is the insured Medical (General) History Medical History History ICD Code osteoarthritis Cholesterol Hiatal hernia measles mumps chicken pox transfusions Surgical History Surgery Date(Month/Year) mastectomy 1989 Modified Becker Bunionectomy Right 02/19
--- OUTSIDE RECORDS SUMMARY | 2025-02-22 09:40 | XMS_ITS | Encounter Summary ---
Author Organization [facility] Address [address] [place] [address] Phone Care Team Providers Care Video Specialist Name Role Phone Matthew Juarez MD Primary Care Provider [phone] Encounter Details Date Type Department Care Team (Late st Contact Info) Description 12/02/2020 Procedure Pass [facility] PERIOPERATIVE DEPT [address] [place] [address] Social History Tobacco Use Types Packs/Day Years Used Date Smoking Tobacco: Former Cigarettes 1 20 0 01/11/1972 - 01/11/1992 Smokeless Tobacco: Never Alcohol Use Standard Drinks/Week Comments Yes 1 (1 standard drink = 0.6 oz pur e alcohol) Comments No Sex and Gender Information Value Date Recorded Sex Assigned at Not on file Legal Sex Female 2:37 AM EST Gender Identity Not on file Sexual Orientation Not on file documented as of this encounter Plan of Treatment Not on file documented as of this encounter Visit Diagnoses Not on filedocumented in this encounter Care Teams Video Specialist Relationship Specialty Start Date End Date Matthew Juarez MD [address] [place] [address] PCP - General Internal Medicine 04/05/16 documented as of this encounter Additional Source Comments The information contained in this document represents components of the legal health record. It is not the complete legal health record.[facility]
--- OUTSIDE RECORDS SUMMARY | 2025-02-22 09:41 | XMS_ITS | Patient Health Record ---
Author Organization [facility] Address [address] [place] [address] Care Team Providers Care Hat Sizer Name Role Phone Ann (RETIRED) Matthew MAZARIEGOS Primary Care Provider Unavailable Jayro Barnes Unavailable [phone] Reason For Referral No Information Medications Medication SIG (Take, Route, Frequency, Duration) Notes Start Date End Date Status Omeprazole 40 MG TAKE 1 CAPSULE BY [facility] EVERY DAY Orally Once a day Acti ve Ezetimibe 10 MG Oral for 90 Ac tive Aspirin 81 MG Oral for 30 Acti ve amLODIPine Besylate 5 MG Oral for 90 Active Gemfibrozil 600 MG Oral for 90 Active Immunizations Vaccine Route Administration Date Status Comme nts Influenza Unknown 04/07/2020 Administered Social History Tobacco Use: Social History Observation Description Date Details (start date - stop date) Former Smoker NA - NA Tobacco Use/Smoking Question Answer Notes Patient is [...] Never (0 point) Points 2 Interpretation Negative Section Notes: Occasional glass of wine Nonsmoker Problems Problem Type SNOMED Code ICD Code Onset Dates Problem Status W/U Status Risk Notes Problem 91626273 Upper abdominal pain (R10.10) Active confirmed Problem 174511660 Gastroesophageal reflux disease, unspecified whether esophagitis present (K21.9) Active confirmed Plan Of Treatment Pending Test Test Name Order Date Pathology 03/26/2021 Future Test Test Name Order Date UPPER GI ENDOSCOPY 03/23/2021 Insurance Providers Payer Name Payer Address Payer Phone Subscriber Number Group Number Insured Name Patient Relationship to Insured Coverage Start Date Coverage End Date MEDICARE OF [place] [address] [place] [phone] [id number] [place] Self - patient is the insured [employer] ATT[employer] CLAIMS [address] [place] [address] [phone] [id number] [place], MALIKA Self - patient is the insured Medical (General) History Medical History History ICD Code Hypertension Arthritis Asthma GERD Hyperlipidemia Breast cancer-left--1989--surgery as cindy ow Denies NM,DM,CVA,Lung disease,renal dise ase Negative colonoscopy in her 60's Surgical History Surgery Date(Month/Year) Right hip replacement 2016 Left hip replacement 2020 Left mastectomy Appendectomy 2018
[2025-02-22 09:45] LABS: MANUAL DIFF FLAG NO
[2025-02-22 09:48] LABS: Glucose, Whole Blood 114 mg/dL (60-115)
[2025-02-22 10:01] LABS: Anion Gap 13 (12-20); Blood Urea Nitrogen 21 mg/dL (9-16); Calcium 9.6 mg/dL (8.4-10.2); Carbon Dioxide 24 mmol/L (22-29); Chloride 109 mmol/L (96-108); Cholesterol 195 mg/dL (<200); Creatinine Clr Calc Pharmacy 40.4; Estimated Glomerular Filt Rate 58; HDL Cholesterol 68 mg/dL (>40); Potassium 4.1 mmol/L (3.3-5.1); Sodium 142 mmol/L (135-145); Triglycerides 59 mg/dL (<150)
[2025-02-22] MEDS: iohexoL 350 MG/ML 100 ML INFUS..BTL IV (10:03)
--- NOTE | 2025-02-22 10:06 | PC.NURSE ---
Pt taken over to CT by this nurse and tech
[2025-02-22 10:08] LABS: Troponin-I High Sensitivity < 2.7 ng/L (<3.5-17.0)
[2025-02-22 10:12] LABS: Hematocrit 41.5 % (37.0-47.0); Hemoglobin 14.0 g/dl (12.0-16.0); Imm Gran Abs Auto 0.02 X10*3/uL (0.00-0.03); Imm Gran Pct Auto 0.3 % (0.0-0.4); Lymphocytes Absolute Auto 1.8 X10*3/uL (1.2-4.9); Mean Corpuscular HGB Conc 33.7 g/dl (31.0-35.0); Mean Corpuscular Hemoglobin 29.9 pg (27.0-33.0); Mean Corpuscular Volume 88.5 fL (80.0-98.0); NRBC Abs Auto 0.000 X10*3/uL (0.0-0.012); NRBC Pct Auto 0.0 /100WBC (0.0-0.2); Platelet Count 205 X10*3/uL (160-400); Red Blood Count 4.69 X10*6/uL (4.20-5.50); White Blood Count 6.0 X10*3/uL (4.8-10.8)
[2025-02-22 10:16] LABS: INTERNATIONAL NORM RATIO 0.9 (0.9-1.1); Prothrombin Time 10.7 SEC (10.9-12.4)
[2025-02-22 10:17] LABS: Prothrombin Time Whole Bld POC 11.5 sec (11.1-13.5); ~PT, ~INR - Anti Coag Clinic 1.0 (0.9-1.1)
[2025-02-22 10:19] LABS: Partial Thromboplastin Time 32.8 SEC (26.0-36.8)
[2025-02-22 10:21] LABS: Stroke Lab Use COMPLETE
[2025-02-22 10:40] VITALS: BP 136/69; PULSE 78; RESP 16; TEMP 36.4; O2SAT 97
[2025-02-22 12:02] VITALS: BP 136/69; PULSE 78; RESP 16; TEMP 36.4; O2SAT 97
== END 2025-02-22 12:04 | disposition home or self-care (01) ==
PROVIDERS: Physician Assistant Medical; Emergency Provider Emergency Medicine; PCP Internal Medicine
DX: R41.82 Altered mental status, unspecified (principal); Z91.81 History of falling; R29.700 NIHSS score 0; I10 Essential (primary) hypertension; E78.00 Pure hypercholesterolemia, unspecified; Z79.899 Other long term (current) drug therapy; Z79.82 Long term (current) use of aspirin
CPT/HCPCS: 36415; 70450; 70496; 70498; 80048; 80061; 82947; 84484; 85025; 85610; 85730; 93005; 99285; Q9967

== ENCOUNTER → 2025-02-22 09:30 | Outpatient (BNV) | payer MEDICARE, SELFPAY | PROVIDERS: Emergency Provider Emergency Medicine; PCP Internal Medicine; Visit Provider Internal Medicine | DX: I49.1 Atrial premature depolarization (principal) | CPT/HCPCS: 93010 ==

== ENCOUNTER → 2025-02-22 09:30 | Outpatient (BNV) | payer MEDICARE, SELFPAY | PROVIDERS: Emergency Provider Emergency Medicine; PCP Internal Medicine; Visit Provider Radiology Vascular & Interventional Radiology | DX: I63.9 Cerebral infarction, unspecified (principal) | CPT/HCPCS: 70450; 70496; 70498 ==

== ENCOUNTER 2025-03-03 09:43 | Outpatient (AMB) | payer MEDICARE, SELFPAY ==
--- OUTSIDE RECORDS SUMMARY | 2025-02-25 23:59 | XMS_ITS | Continuity of Care Document ---
Author Organization [facility] Address [address] [place] [address]- Care Team Providers Care Digital Media Sales Consultant Name Role Phone Ann MAZARIEGOS, Matthew Segura Primary Care Physician Venita casey [facility] [id number] Date(s): 02/18/25 - 02/25/25 [facility] [address] [place] [address]- Attending Physician: Tyler Callahan MD Referring Physician: Caleb Burnett MD Encounter Type: Office Visit Allergies, Adverse Reactions, Alerts Substance Criticality Severity Reaction Reaction Severity Status Latex Active Medications Albuterol (Eqv-ProAir HFA) 90 mcg/inh inhalation aerosol 2 puffs, Inhalation, Every 6 hours, 0 Refills, Maintenance, 09/20/22 8:58:00 AM EST, Partial fill upon patient request if the prescription is for a schedule II opioid drug. Start Date: 09/20/22 Status: Ordered Repeat number: 1 amLODIPine 5 mg oral tablet 1 tablet = 5 mg, By Mouth, Daily, # 30 tablet, 0 Refills, Maintenance, 02/18/25 10:00:00 AM EDT, Tablet, Partial fill upon patient request if the prescription is for a schedule II opioid drug. Start Date: 02/18/25 Status: Ordered Quantity: 30.0 Unit: tablet Repeat number: 1 aspirin 81 mg oral capsule 1 capsule = 81 mg, By Mouth, Every 4 hours, 0 Refills, Maintenance, 09/20/22 8:58:00 AM EST, Partialfill upon patient request if the prescription is for a schedule II opioid drug. Start Date: 09/20/22 Status: Ordered Repeat number: 1 gemfibrozil 600 mg oral tablet 600 mg, 1, tablet, By Mouth, 2 times a day, Refills 0, Maintenance, 09/20/22 8:57:00 AM EST, Partialfill upon patient request if the prescription is for a schedule II opioid drug. Start Date: 09/20/22 Status: Ordered Repeat number: 1 LORazepam 0.5 mg oral tablet 1 tablet = 0.5 mg, By Mouth, 2 times a day, PRN as needed for anxiety, 0 Refills, Maintenance, 02/18/25 9:59:00 AM EDT, Tablet, Partial fill upon patient request if the prescription is for a schedule II opioid drug. Start Date: 02/18/25 Status: Ordered Repeat number: 1 oxybutynin 10 mg/24 hr oral tablet, extended release 1 tablet = 10 mg, By Mouth, Daily, 0 Refills, Maintenance, 09/20/22 8:59:00 AM EST, Partial fill upon patient request if the prescription is for a schedule II opioid drug. Start Date: 09/20/22 Status: Ordered Repeat number: 1 Zetia Tablet 10 mg, By Mouth, Daily, Maintenance, 06/18/13 10:32:36 AM EST Start Date: 06/18/13 Status: Ordered Repeat number: 1 zolpidem 10 mg oral tablet 1 tablet = 10 mg, By Mouth, Daily at bedtime, PRN as needed for insomnia, 0 Refills, Maintenance, 02/18/25 9:59:00 AM EDT, Tablet, Partial fill upon patient request if the prescription is for a schedule II opioid drug. 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 Confirmed Active Anxiety Confirmed Active Arthritis Confirmed Active Asthma Confirmed Active CKD, thought NSAID related Confirmed Active Macular disorder-left eye Confirmed Active Dyslipidemia Confirmed Active Hiatal hernia with GERD Confirmed Active History of breast cancer Confirmed Active Hypertension Confirmed Active Lumbar radiculopathy Confirmed Active RLS (restless legs syndrome) Confirmed Active Urinary incontinence Confirmed Active Procedures Procedure Date Related Diagnosis Body Site Status Appendectomy Completed Cataracts Completed Hip arthroplasty-bilateral Completed Left wrist surgery, details unknown Completed Lumbar spine surgery Comp leted Mastectomy-left Completed Social History Social History Type Response Smoking Status Former smoker, quit more than 30 days ago entered on: 02/18/25 Sex Sex Representation Female (finding) Patient Care team information Care Team Related Persons Name: JAMIA GLASS Insurance Providers Guarantor name: MALIKA MORENO Health Plan Information #: 1 Payer: MEDICARE B Payer Identifier: JASBIR Member Number: [id number] Group Number: [id number] Subscriber Identifier: [id number] Relationship to Subscriber: self Coverage Type: NA Coverage Verification Date: NA Telecom: NA Address: [facility] Plan Information #: 2 Payer: MEDEX SECONDARY ONLY Payer Identifier: JASBIR Member Number: [id number] Group Number: [id number] Subscriber Identifier: [id number] Relationship to Subscriber: self Coverage Type: Medicare Other Coverage Verification Date: NA Telecom: NA Address:
--- NOTE | 2025-03-03 09:45 | A.OFFPC_ITS ---
Vital Signs 03/03/25 09:50 03/03/25 11:11 Height 5 ft 1.61 in Weight 154 lb 4 oz BMI 28.6 BP 154/66 H 157/71 H Blood Pressure Location Rt brachial Rt brachial Position Sitting Sitting Respiration 16 Pulse 73 Pulse Source Pulse Oximeter Temp 98.4 F Temp Source Temporal Artery Scan Pulse Oximetry (%) 95 Oxygen Delivery Method Room Air Intake Visit Reasons: Establish care/ER Visit Publicity Director Required: No Accompanied by: Self / Same As Patient Allergies adhesive tape Allergy (Severe, Verified 03/03/25 10:24) Blister latex Allergy (Intermediate, Verified 03/03/25 10:24) Rash Medication List - Last Reconciled 03/03/25 by Laura Bruner PA-C albuterol sulfate 90 mcg/actuation inhalation amlodipine 1 tab PO DAILY aspirin 81 mg PO DAILY esomeprazole magnesium (Nexium) 10 mg PO DAILY ezetimibe 10 mg PO DAILY gemfibrozil 1 tab PO BID lorazepam mg PO prednisolone acetate 1% 1 drp ophthalmic (eye) QID Tobacco use date assessed: 03/03/25 Fall risk assessment: 1 Fall in past year Last assessed Fall Risk: 03/03/25 Dental Screening Dental Screen Date: 03/03/25 Did you have a dental visit in the last 12 months?: Yes Did you have a dental problem in the last 6 months where you did not have access to dental care?: No Was dental information given to patient?: Patient has dentist HPI Establish care/ER Visit HPI Details The patient is an 84-year-old female presenting for a new primary care provider and evaluation following a recent fall and suspected transient ischemic attack (TIA). The patient experienced a fall and subsequent memory loss, with no recollection of the event or the immediate aftermath, including being taken to the hospital. Her daughter reported slurred speech and called emergency services, leading to hospitalization. The patient does not recall the hospital stay or being discharged. The patient has a history of hypertension, which has been present since her twenties, and is currently managed with amlodipine 5 mg daily. Her blood pressure typically runs around 140 mmHg systolic, and there is a plan to increase the dose to 10 mg to achieve better control. The patient has a history of anxiety, for which she takes lorazepam daily since the of her grandson three years ago. She has not seen a therapist or psychiatrist. The patient underwent eye surgery for a macular pucker shortly before the fall, which was uncomplicated and involved a short recovery period. The patient has a history of hyperlipidemia, managed with gemfibrozil, as she cannot tolerate statins due to kidney issues. Her LDL cholesterol was 116 mg/dL during recent blood work. The patient has a history of mastectomy in 1989 and uses a prosthetic. The patient has had both hips replaced and lives independently, engaging in regular exercise at a senior center. Social History - Lives independently and is active, att ending a senior center three times a week for exercise. - Does not cook regularly, prefers meals at the senior center. - Former smoker, quit over 30 years ago. [facility] Medical History (Updated 03/03/25 @ 13:31 by Laura Bruner PA-C) History of mammogram (~08/17/24) Screening for osteoporosis Hyperlipidemia Macular pucker Depression History of TIA (transient ischemic attack) Wears glasses Wears dentures Arthritis Back pain Slow to wake up after anesthesia History of blood transfusion (1962) Anxiety GERD (gastroesophageal reflux disease) FHx: bilateral hip replacements Acid reflux Hypercholesteremia Hypertension Surgical History (Updated 03/03/25 @ 13:31 by Laura Bruner PA-C) Hx of squamous cell carcinoma excision (01/25/24) Hx of colonoscopy (~03/26/21) History of back surgery (~2013) History of bilateral hip replacements H/O mastectomy (1989) Hx of appendectomy Family History Mother Lung cancer Father Coronary thrombosis Social History Household Members: None Housing: House Are you a primary intensive care medicine specialist to a significant other at home: No Do you presently have visiting nurse or other home services: No 75 years or older and lives alone: Yes Alcohol intake: current Alcohol intake frequency: holidays/special occasions only Patient Tobacco Use Status: Former Tobacco user e-Cigarette/Vaping Use: Never Used service: No Current occupational status: retired Cognitive needs: No Hearing needs: No Vision needs: Yes (reading glasses) Questionnaire PHQ-9 Over the last 2 weeks, how often have you been bothered by any of the following problems? 1. Little interest or pleasure in doing things: not at all 2. Feeling down, depressed, or hopeless: several days 3. Trouble falling or staying asleep, or sleeping too much: nearly every day 4. Feeling tired or having little energy: several days 5. Poor appetite or overeating: several days 6. Feeling bad about yourself - or that you are a failure or have let yourself or your family down: not at all 7. Trouble concentrating on things, such as reading the newspaper or watching television: not at all 8. Moving or speaking so slowly that other people could have noticed. Or the opposite - being so fidgety or restless that you have been moving around a lot more than usual: several days 9. Thoughts that you would be better off or of hurting yourself in some way: not at all Total score: 7 Depression Screening Interpretation: Positive Depression Screening Follow-up: Existing condition, In treatment and Community Mental Health Worker F/U Depression Screening Done: Yes 39285 - PHQ-9 Billing: Yes Source: Developed by Drs. Jayro Adamson, Doreen Ayon, Ian Romo and colleagues, with an educational ev from [employer]. Thrive Questionnaire Date Thrive assessed: 03/03/25 I am a: Patient What is your living situation today?: I have a steady place to live Within the past 12 months, did the food you bought not last and you didn't have the money to get more?: Never true Within the past 12 months, did you worry whether your food would run out before you got money to buy more?: Never true Do you have trouble paying for medicines?: No Do you have trouble getting transportation to medical appointments?: No Do you have trouble paying your heating and electricity bill?: No Do you have trouble taking care of your child, family member or friend?: No Do you have trouble with day-to-day activities such as bathing, preparing meals, shopping, managing finances, etc.?: No Are you currently unemployed and looking for a job?: No Are you interested in more education?: No Please select the resources that you would like help with: None Currently or been in a relationship where the following occur: No concerns reported THRIVE Score: 0 AUDIT C Alcohol Use Questionnaire (AUDIT-C) 1. How often do you have a drink containing alcohol?: Monthly or less 2. How many drinks containing alcohol do you have on a typical day when you are drinking?: 1 or 2 3. How often do you have six or more drinks on one occasion?: Never Total Score: 1 Score Reviewed/Action Taken: No SAIMA-7 AMB Questionnaire SAIMA-7 Date SAIMA - 7 assessed: 03/03/25 Feeling nervous, anxious, or on edge: 2 = More than half the days Not being able to stop or control worryin = Nearly every day Worrying too much about different things: 3 = Nearly every day Trouble relaxin = Not at all Being so restless that it is hard to sit still: 0 = Not at all Becoming easily annoyed or irritable: 0 = Not at all Feeling afraid as if something awful might happen: 2 = More than half the days Total SAIMA-7 score (0-4 normal; 5-9 mild; 10-14 moderate; 15-21 severe): 10 Source: Developed by Drs. Jayro Adamson, Doreen Ayon, Ian Romo and colleagues, with an educational ev from [employer]. SAIMA-7 Assessment Billing SAIMA-7 Assessment Tool: SAIMA-7 Assessment 92105 Review of Systems Const Details: - Neurological: Reports memory loss during the TIA event. Denies current dizziness, numbness, confusion, or slurred speech. - Cardiovascular: Denies chest pain or palpitations. - Respiratory: Denies dyspnea or cough. - Musculoskeletal: Denies recent falls or use of assistive devices. Physical exam (Primary Care) Vital Signs: Last Vital Signs Temp 98.4 F 03/03/25 09:50 Pulse 73 03/03/25 09:50 Resp 16 03/03/25 09:50 BP 154/66 H 03/03/25 09:50 Pulse Ox 95 03/03/25 09:50 Oxygen Delivery Method Room Air 03/03/25 09:50 Care Plan Goal for BP management: <140/90 will increase patient's amlodipine from 5 mg to 10 mg patient will bring blood pressure diary with blood pressure at next visit BMI result Body Mass Index 28.6 BMI Assessment/Plan discussion: High BMI High, discussed plan: lifestyle, weight reduction, dietary, physical activity and alcohol moderation Tobacco/Smoking Status: Tobacco use Status Tobacco use date assessed 03/03/25 03/03/25 09:49 Patient Tobacco Use Status Former Tobacco user 03/03/25 09:59 Tobacco use type 03/03/25 10:06 e-Cigarette/Vaping Use Never Used 03/03/25 09:59 PHQ-9: PHQ-9 Score PHQ-9: Total score 7 03/03/25 10:06 Depression Screening Interpretation: Positive Depression Screening Follow-up: Existing condition, In treatment and Community Mental Health Worker F/U Thrive Assessment: Date of Thrive Assessment Date Thrive assessed 03/03/25 03/03/25 09:49 Currently or been in a relationship where the following occur: No concerns reported Const Other: Appearance: Alert. Oriented X3. No acute distress. Head: Normal external exam. Normocephalic. Atraumatic. Eyes: Pupils are equal, round, and reactive to light. Extraocular movements intact. Conjunctiva and sclera normal. Eyelids normal. Throat: Pharynx normal. Uvula midline. Moist mucous membranes. Neck: Normal inspection. Neck supple. Full range of motion. Cardiovascular: Normal heart rate and rhythm. Heart sound normal. No murmurs noted. Pulses normal throughout. Respiratory: No respiratory distress. Painless inspiration. Breath sounds normal. No wheezes/rales/rhonchi noted. Chest nontender. No accessory muscle usage noted or decreased air movement noted. Back: Full range of motion noted. Skin: Skin warm and dry. Normal skin color. Normal skin turgor. No rashes/lesions/lacerations noted. Extremities: No lower extremity edema. Extremities exhibit normal range of motion. Neuro: Oriented X 3. No motor deficit. No sensory deficit. Reflexes normal. Normal neuro exam. Able to shrug shoulders against resistance. Normal 5/5 strength throughout. Normal hand scenario writer. Normal steady gait. No focal deficits are noted. Results Reviewed Results Reviewed: - Labs: Normal CBC, normal white blood cell count, normal platelet count, normal kidney function, glucose 114 mg/dL, LDL cholesterol 116 mg/dL. Patient's emergency room visit on 02/22/2025 was reviewed including labs, CT scan of brain, CTA of head and neck which were all essentially negative for any acute processes. Coding Level of Care Code New Pt Level 4 (68053) Complex EM visit Add On G2211 Diagnoses History of TIA (transient ischemic attack) Z86.73 Hypertension I10 Anxiety F41.9 Macular pucker H35.379 Hyperlipidemia E78.5 Screening for osteoporosis Z13.820 Additional Codes PHQ-9 - 79224 - PHQ-9 Billing: Yes ([id number]) SAIMA-7 Assessment Billing - SAIMA-7 Assessment Tool: SAIMA-7 Assessment 37013 ([id number]) Time Spent (min) 50 Assessment & Plan Assessment & Plan (1) History of TIA (transient ischemic attack): Code(s): Z86.73 - Personal history of transient ischemic attack (TIA), and cerebral infarction without residual deficits Category: Medical Plan: The patient experienced a fall with subsequent memory loss and slurred speech, suggestive of a transient ischemic attack (TIA). An MRI of the brain has been ordered to further evaluate the event, and the patient will be followed up in a month to review the results and assess any further interventions needed. (2) Hypertension: Code(s): I10 - Essential (primary) hypertension Category: Medical Plan: The patient's hypertension is currently managed with amlodipine 5 mg daily, but due to persistent elevated blood pressure readings, the dose will be increased to 10 mg daily. The patient is advised to monitor her blood pressure at home and bring the readings to the next appointment. (3) Anxiety: Code(s): F41.9 - Anxiety disorder, unspecified Category: Medical Plan: The patient is currently taking lorazepam for anxiety, which began after the of her grandson. Patient has scored high and PHQ score will refer to therapist and Beverly Cazares for proper medication management as patient is on lorazepam 0.5 mg b.i.d. and Ambien 10 mg at bedtime although has not seen a therapist or psychiatrist. Condition is chronic and stable will continue to monitor. (4) Macular pucker: Code(s): H35.379 - Puckering of macula, unspecified eye Category: Medical Plan: The patient recently underwent surgery for a macular pucker, which was uncomplicated. No further interventions are planned at this time. (5) Hyperlipidemia: Code(s): E78.5 - Hyperlipidemia, unspecified Category: Medical Plan: The patient is managing her hyperlipidemia with gemfibrozil due to intolerance to statins. Her LDL cholesterol is 116 mg/dL, and no changes to her current regimen were discussed. (6) Screening for osteoporosis: Code(s): Z13.820 - Encounter for screening for osteoporosis Category: Medical Plan: Will refer for DEXA scan. Plan Plan Patient was informed and verbally consented to the use of an ambient scribe for clinic note documentation during this visit. 1. Transient Ischemic Attack (Tia) The patient experienced a fall with subsequent memory loss and slurred speech, suggestive of a transient ischemic attack (TIA). An MRI of the brain has been ordered to further evaluate the event, and the patient will be followed up in a month to review the results and assess any further interventions needed. 2. Hypertension The patient's hypertension is currently managed with amlodipine 5 mg daily, but due to persistent elevated blood pressure readings, the dose will be increased to 10 mg daily. The patient is advised to monitor her blood pressure at home and bring the readings to the next appointment. 3. Anxiety The patient is currently taking lorazepam for anxiety, which began after the of her grandson. No changes to her medication regimen were discussed during this visit. 4. Macular Pucker The patient recently underwent surgery for a macular pucker, which was uncomplicated. No further interventions are planned at this time. 5. Hyperlipidemia The patient is managing her hyperlipidemia with gemfibrozil due to intolerance to statins. Her LDL cholesterol is 116 mg/dL, and no changes to her current regimen were discussed. During the visit, we discussed the patient's recent fall and suspected TIA, emphasizing the importance of further evaluation with an MRI to rule out any significant cerebrovascular events. We also reviewed her hypertension management, deciding to increase her amlodipine dosage to better control her blood pressure. The patient was advised to monitor her blood pressure at home and report any significant changes. Orders: Orders Comprehensive [place]. Panel Fast Today Z00.00 - Encounter for general adult medical examination without abnormal findings Hemoglobin A1c Today Z00.00 - Encounter for general adult medical examination without abnormal findings Vitamin B12 and Folate Today Z00.00 - Encounter for general adult medical examination without abnormal findings XR DEXA axial skeleton Today M81.0 - Age-related osteoporosis without current pathological fracture MR head/brain wo con Today Z86.73 - Personal history of transient ischemic attack (TIA), and cerebral infarction without residual deficits Complete Blood Count Auto Diff Today Z00.00 - Encounter for general adult medical examination without abnormal findings C Reactive Protein Today Z00.00 - Encounter for general adult medical examination without abnormal findings Lipid Panel Today Z00.00 - Encounter for general adult medical examination without abnormal findings Liver Panel Today Z00.00 - Encounter for general adult medical examination without abnormal findings Magnesium Today Z00.00 - Encounter for general adult medical examination without abnormal findings Vitamin D 25-OH Total Today Z00.00 - Encounter for general adult medical examination without abnormal findings TSH reflex Free T4 Today Z00.00 - Encounter for general adult medical examination without abnormal findings Referrals Counseling Referral F32.A - Depression, unspecified, F41.9 - Anxiety disorder, unspecified Psychiatry Outpatient Consultation Service F32.A - Depression, unspecified, F41.9 - Anxiety disorder, unspecified Medications: Changed From amlodipine 1 tab PO DAILY To amlodipine 10 mg PO DAILY 30 tabs 0RF Patient Instructions: - Monitor blood pressure daily and record the readings. - Take amlodipine 10 mg daily as prescribed. - Await a call for scheduling the MRI and DEXA scan. - Follow up with the primary care provider in one month.
[2025-03-03 09:50] VITALS: BP 154/66; PULSE 73; RESP 16; TEMP 36.9; O2SAT 95; BMI 28.6
--- OUTSIDE RECORDS SUMMARY | 2025-03-03 10:38 | XMS_ITS | Encounter Summary ---
Author Organization [facility] Address [address] [place] [address] Phone Care Team Providers Care Director Appointment Name Role Phone Matthew Juarez MD Primary Care Provider [phone] Encounter Details Date Type Department Care Team (Late st Contact Info) Description 12/02/2020 Procedure Pass [facility] PERIOPERATIVE DEPT [address] [place] [address] Social History Tobacco Use Types Packs/Day Years [...] on filedocumented in this encounter Care Teams Director Appointment Relationship Specialty Start Date End Date Matthew Juarez MD [address] [place] [id number] PCP - General Internal Medicine 04/05/16 documented as of this encounter Additional Source Comments The information contained in this document represents components of the legal health record. It is not the complete legal health record.[facility]
--- OUTSIDE RECORDS SUMMARY | 2025-03-03 10:38 | XMS_ITS | Clinical Summary ---
Author Organization [facility] Facility Address [address] [address] Care Team Providers Care Application Integration Engineer Name Role Phone Matthew Juarez MD Primary Care Provider [phone] Allergies Active Allergy Reactions Criticality Noted Date [...] patient's age to complete this topic Insurance [facility] [place] [address] [address] Medicare Care Teams Application Integration Engineer Relationship Specialty Start Date End Date Matthew Juarez MD [address] [place] [address] PCP - General 08/17/20
--- OUTSIDE RECORDS SUMMARY | 2025-03-03 10:38 | XMS_ITS | Patient Health Record ---
Author Organization [facility] Address [address] [place] [address] Care Team Providers Care Workers Compensation Claims Supervisor Name Role Phone Ann (RETIRED) Matthew MAZARIEGOS Primary Care Provider Unavailable Jayro Barnes Unavailable [phone] Reason For Referral No Information Medications Medication SIG (Take, Route, Frequency, Duration) Notes Start Date End Date Status Omeprazole 40 MG TAKE 1 CAPSULE BY [facility] EVERY DAY Orally Once a day [...] Problem Status W/U Status Risk Notes Problem [id number] Upper abdominal pain (R10.10) Active confirmed Problem [id number] Gastroesophageal reflux disease, unspecified whether esophagitis present [...] [place] [address] [place] [address] [phone] [id number] [place] Self - patient is the insured [employer] CLAIM[employer] [address] [place] [address] [phone] [id number] [place], [place] Self - patient is the insured Medical (General) History Medical History History ICD Code Hypertension Arthritis Asthma GERD Hyperlipidemia 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
--- OUTSIDE RECORDS SUMMARY | 2025-03-03 10:38 | XMS_ITS | Patient Health Record ---
[facility] Address [address] [place] [address] Care Team Providers Care Underwriting Intern Name Role Phone Matthew Juarez MD Primary Care Provider UnavailLotus [place] Unavailable [phone] Allergies Allergen (clinical drug ingredient) Drug/Non Drug [...] W/U Status Risk Notes Problem Hallux valgus (179991194) Hallux Valgus (735.0) Active confirmed Problem Hammer toe (380635503) Hammer toe (735.4) Active confirmed Problem Calcaneal spur (81736001) Calcaneal spur (726.73) Active confirmed Problem Pain in limb (97984999) Pain in Limb (729.5) Active confirmed Problem Plantar fasciitis (534236474) Plantar Fasciitis (728.71) Active confirmed Plan Of [...] Inc [address] [place] [address] [id number] Patel inDanna Self - patient is the insured [employer] [address] [place] [address] [phone] [id number] Patel inDanna Self - patient is the insured Medical (General) History Medical History History ICD Code osteoarthritis Cholesterol Hiatal hernia measles mumps chicken pox transfusions Surgical History Surgery Date(Month/Year) mastectomy 1989 Modified Becker Bunionectomy Right 02/19
[2025-03-03 11:11] VITALS: BP 157/71
== END 2025-03-03 10:42 | disposition home or self-care (01) ==
LOC: HO.HMCSH 09:43
PROVIDERS: PCP Internal Medicine; Visit Provider Physician Assistant Medical
DX: Z86.73 Personal history of transient ischemic attack (TIA), and cerebral infarction without residual deficits (principal); I10 Essential (primary) hypertension; F41.9 Anxiety disorder, unspecified; H35.379 Puckering of macula, unspecified eye; E78.5 Hyperlipidemia, unspecified; Z13.820 Encounter for screening for osteoporosis

== ENCOUNTER → 2025-03-03 09:43 | Outpatient (BNVA) | payer MEDICARE, SELFPAY | PROVIDERS: PCP Internal Medicine; Visit Provider Physician Assistant Medical | DX: F41.9 Anxiety disorder, unspecified (principal); E78.5 Hyperlipidemia, unspecified; H35.379 Puckering of macula, unspecified eye; I10 Essential (primary) hypertension; Z86.73 Personal history of transient ischemic attack (TIA), and cerebral infarction without residual deficits | CPT/HCPCS: 96127; 99202 ==

== ENCOUNTER → 2025-03-16 08:35 | Outpatient (BNV) | payer MEDICARE, SELFPAY | PROVIDERS: PCP Internal Medicine; Visit Provider Radiology Diagnostic Radiology | DX: Z86.73 Personal history of transient ischemic attack (TIA), and cerebral infarction without residual deficits (principal) | CPT/HCPCS: 70551 ==

== ENCOUNTER 2025-03-16 08:42 | Outpatient (REF) | payer MEDICARE, SELFPAY ==
--- NOTE | ~2025-03-16 | MR_ITS ---
EXAMINATION: MR BRAIN WITHOUT IV CONTRAST HISTORY: Z86.73 - Personal history of transient ischemic attack (TIA), and cerebral... TECHNIQUE: Sagittal T1, and axial T1, FLAIR, T2, gradient echo, and diffusion weighted MR images of the brain were obtained. COMPARISON: Correlation is made with an unenhanced head CT dated 02/22/2025. FINDINGS: The pituitary is normal in size. The cerebellar tonsils are normally located. There is diffuse prominence of the ventricular system and cortical sulci, consistent with atrophy. Periventricular and subcortical white matter hyperintensities are noted on the FLAIR and T2-weighted images which are nonspecific, but often seen in the setting of small vessel ischemic disease. Again seen are old lacunar infarcts of the bilateral cerebellar hemispheres. There is no mass effect or midline shift. There is a focus of hemosiderin adjacent to the trigone of the right lateral ventricle. There is no evidence of acute intracranial hemorrhage. There are no foci of restricted diffusion. Normal vascular flow voids are noted in the basilar and carotid arteries. The visualized paranasal sinuses are clear. MR/MR head/brain wo con IMPRESSION: No acute intracranial abnormality. Electronically signed by: Jayro Feldman MD 03/17/2025 08:04 AM EDT
--- OUTSIDE RECORDS SUMMARY | 2025-03-16 08:44 | XMS_ITS | Clinical Summary ---
Author Organization [facility] Facility Address [address] [address] Care Team Providers Care Backside Grinder Name Role Phone Matthew Juarez MD Primary Care Provider [phone] Allergies Active Allergy Reactions Criticality Noted Date [...] patient's age to complete this topic Insurance [facility] [place] [address] [place] [address] Medicare Care Teams Backside Grinder Relationship Specialty Start Date End Date Matthew Juarez MD [address] [place] [address] PCP - General 08/17/20
--- OUTSIDE RECORDS SUMMARY | 2025-03-16 08:44 | XMS_ITS | Patient Health Record ---
Author Organization [facility] Address [address] [place] [address] Care Team Providers Care Foreign Language Interpreter Name Role Phone Ann (RETIRED) Matthew MAZARIEGOS Primary Care Provider Unavailable Jayro Barnes Unavailable [phone] Reason For Referral No Information Medications Medication SIG (Take, Route, Frequency, Duration) Notes Start Date End Date Status Omeprazole 40 MG TAKE 1 CAPSULE BY [facility] EVERY DAY Orally Once [...] Problem Status W/U Status Risk Notes Problem 10850354 Upper abdominal pain (R10.10) Active confirmed Problem 889923684 Gastroesophageal reflux disease, unspecified whether esophagitis present [...] [place] [address] [place] [address] [id number] [place] Self - patient is the insured [employer] ATT[employer] CLAIMS [address] [place] [address] [id number] [place], MALIKA Self - patient is the insured Medical (General) History Medical History History ICD Code Hypertension Arthritis Asthma GERD Hyperlipidemia 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
--- OUTSIDE RECORDS SUMMARY | 2025-03-16 08:44 | XMS_ITS | Encounter Summary ---
Author Organization [facility] Address [address] [place] [address] Phone Care Team Providers Care Sales Operations Director Name Role Phone Matthew Juarez MD Primary Care Provider [phone]- [phone] Encounter Details Date Type Department Care Team (Late st Contact Info) Description 12/02/2020 Procedure Pass [facility] PERIOPERATIVE DEPT [address] [place] [address] Social History Tobacco Use Types Packs/Day Years [...] on filedocumented in this encounter Care Teams Sales Operations Director Relationship Specialty Start Date End Date Matthew Juarez MD [address] [place] [address] PCP - General Internal Medicine 04/05/16 documented as of this encounter Additional Source Comments The information contained in this document represents components of the legal health record. It is not the complete legal health record.[facility]
--- OUTSIDE RECORDS SUMMARY | 2025-03-16 08:44 | XMS_ITS | Patient Health Record ---
[facility] Address [address] [place] [address] Care Team Providers Care Insulation Sprayer Name Role Phone Matthew Juarez MD Primary Care Provider UnavailLotus [place] Unavailable [phone] Allergies Allergen (clinical drug ingredient) Drug/Non Drug [...] W/U Status Risk Notes Problem Hallux valgus (253908269) Hallux Valgus (735.0) Active confirmed Problem Hammer toe (021204526) Hammer toe (735.4) Active confirmed Problem Calcaneal spur (63887460) Calcaneal spur (726.73) Active confirmed Problem Pain in limb (70490336) Pain in Limb (729.5) Active confirmed Problem Plantar fasciitis (777996021) Plantar Fasciitis (728.71) Active confirmed Plan Of [...] Inc [address] [place] [address] [phone] [id number] Patel inDanna Self - patient is the insured [employer] [address] [place] [address] [phone] [id number] Patel inDanna Self - patient is the insured Medical (General) History Medical History History ICD Code osteoarthritis Cholesterol Hiatal hernia measles mumps chicken pox transfusions Surgical History Surgery Date(Month/Year) mastectomy 1989 Modified Becker Bunionectomy Right 02/19
== END 2025-03-16 08:43 | disposition home or self-care (01) ==
LOC: HO.MRI 08:42
PROVIDERS: PCP Internal Medicine; Visit Provider Physician Assistant Medical
DX: Z86.73 Personal history of transient ischemic attack (TIA), and cerebral infarction without residual deficits (principal)
CPT/HCPCS: 70551

== ENCOUNTER 2025-05-01 07:59 | Outpatient (AMB) | payer MEDICARE, SELFPAY ==
--- NOTE | 2025-05-01 08:02 | A.OFFVIS_ITS ---
Vital Signs 05/01/25 08:03 Height 5 ft 1.61 in Weight 155 lb 8 oz BMI 28.8 BP 130/74 Blood Pressure Location Rt brachial Position Sitting Pulse 83 Pulse Source Pulse Oximeter Pulse Oximetry (%) 95 Oxygen Delivery Method Room Air Intake Visit Reasons: INP - TIA Intake Note: TIA Shower Doors And Panels Fabricator Required: No Accompanied by: Daughter Allergies adhesive tape Allergy (Severe, Verified 05/01/25 08:03) Blister latex Allergy (Intermediate, Verified 05/01/25 08:03) Rash Medication List - Last Reconciled 05/01/25 by Annie Her MD albuterol sulfate 90 mcg/actuation inhalation amlodipine 10 mg PO DAILY aspirin 81 mg PO DAILY esomeprazole magnesium (Nexium) 10 mg PO DAILY gemfibrozil 1 tab PO BID lorazepam mg PO oxybutynin chloride ER 10 mg PO DAILY zolpidem 10 mg PO BEDTIME PRN HPI Comments Details: 84y/o female comes for neurological evaluation . In February 20 2025 she had a surgery to remove scar tissue from her macula in her left eye.2 days later she does not remember what happened for 4-5hrs . Her daughter found he renata the floor awake - was talking but not making sense, playing card games - confused.she went to ER- [facility] was nonfocal she was discharged and was continuing aspirin 81mg qd she is doing well since then . she has chronic insomnia - and takes zolpidem .without medication she sleeps at 10 pm and wakes up at 2 am .some days she takes zolpidem which works intermittently . MRI brain and CTA head and neck - normal she lives alone . she has had multiple sleep studies - last study 5 years ago. No sleep apnea. she goes to exercise class M,W,F and sat her son - who is not well come [facility].Her daughter lives in [place]. 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 Small vessel disease History of mammogram (~08/17/24) Screening for osteoporosis Hyperlipidemia Macular pucker Depression History of TIA (transient ischemic attack) Wears glasses Wears dentures Arthritis Back pain Slow to wake up after anesthesia History of blood transfusion (1962) Anxiety GERD (gastroesophageal reflux disease) FHx: bilateral hip replacements Acid reflux Hypercholesteremia Hypertension Surgical History Hx of squamous cell carcinoma excision (01/25/24) Hx of colonoscopy (~03/26/21) History of back surgery (~2013) History of bilateral hip replacements H/O mastectomy (1989) Hx of appendectomy Family History Mother Lung cancer Father Coronary thrombosis Social History Household Members: None Housing: House Are you a primary ambulatory care nurse to a significant other at home: No Do you presently have visiting nurse or other home services: No 75 years or older and lives alone: Yes Alcohol intake: current Alcohol intake frequency: holidays/special occasions only Patient Tobacco Use Status: Former Tobacco user e-Cigarette/Vaping Use: Never Used service: No Current occupational status: retired Cognitive needs: No Hearing needs: No Vision needs: Yes (reading glasses) Physical Exam Vital Signs: Last Vital Signs Pulse 83 05/01/25 08:03 BP 130/74 05/01/25 08:03 Pulse Ox 95 05/01/25 08:03 Oxygen Delivery Method Room Air 05/01/25 08:03 BMI result Body Mass Index 28.8 Const Orientation/consciousness: patient oriented x3 Eyes Pupils: Equal, round and reactive pupils present Neuro General: patient oriented x3, tone normal, moves all extremities and no focal motor deficits Cranial nerves: Yes Facial sensation intact/muscles of mastication intact, Yes Equal, round and reactive pupils present, Yes Bilaterally intact EOM present, Yes Nystagmus not present, Yes Normal facial strength present, Yes Midline ton oz present, Yes Symmetric palate elevation present and Yes Ability to bilaterally elevate shoulders present Gait exam (Neuro): Antalgic gait present Motor exam (neuro): 5/5 motor strength present throughout and Normal motor muscle tone present throughout Deep tendon reflexes (DTR's): Right triceps reflex intensity grade: 2+, Left triceps reflex intensity grade: 2+, Rt Biceps (C5, C6): 2+, Left biceps reflex intensity grade: 2+, Right brachioradialis reflex intensity grade: 2+, Left brachioradialis reflex intensity grade: 2+, Right patellar reflex intensity grade: 3+ and Left patellar reflex intensity grade: 3+ Coordination: ebjeyj-pj-rffh test normal Assessment & Plan Assessment & Plan (1) Transient global amnesia: Code(s): G45.4 - Transient global amnesia Category: Medical (2) Small vessel disease: Code(s): I73.9 - Peripheral vascular disease, unspecified Category: Medical (3) Insomnia: Code(s): G47.00 - Insomnia, unspecified Category: Medical Qualifiers: Insomnia type: unspecified Qualified Code(s): G47.00 - Insomnia, unspecified Plan Continue aspirin 81mg qd D/C zolpidem - can cause abnormal sleep behavior I will trial her on trazadone 25mg qhs for insomnia discussed about home safety with daughter - medical alert for emergencies Medications: New trazodone 25 mg (1/2 x 50 mg) PO BEDTIME PRN 30 tabs 2RF sleep Coding Level of Care Code New Pt Level 4 (93558) Complex EM visit Add On G2211 Diagnoses Transient global amnesia G45.4 Small vessel disease I73.9 Insomnia, unspecified type G47.00 Insomnia type: unspecified
[2025-05-01 08:03] VITALS: BP 130/74; PULSE 83; O2SAT 95; BMI 28.8
--- OUTSIDE RECORDS SUMMARY | 2025-05-01 08:06 | XMS_ITS | Clinical Summary ---
Author Organization [facility] Address [address] [facility] [address] [place] [address] Phone Care Team Providers Care Bobbin Presser Name Role Phone Matthew Juarez MD Primary Care Provider [phone]- [phone] Allergies Active Allergy Reactions Criticality Noted Date Comments Adhesive Tape-Silicones Rash High 01/10/2017 Celecoxib Other (See Comments) 11/19/2020 Effected kidneys all arthrit. meds Medications ezetimibe (ZETIA) 10 mg tablet Take 10 mg by mouth every evening. Active amLODIPine (NORVASC) 5 MG tablet Take 5 mg by mouth every evening. Active gemfibroziL (LOPID) 600 MG tablet Take 600 mg by mouth 2 (two) times a day. Active omeprazole (PRILOSEC) 20 mg TbEC Take 40 mg by mouth daily as needed. Active budesonide-formote rol (SYMBICORT) 80-4.5 mcg/actuation inhaler Inhale 2 puffs into the lungs 2 (two) times a day. Active oxyCODONE 5 MG immediate release tablet Take 1-2 tablets (5-10 mg total) by mouth every 6 (six) hours as needed for moderate pain. Do not drive, partial fill ok 30 tablet 11/19/19 Active Additional Information Patient not taking.Reported on 11/19/2020 ondansetron (ZOFRAN-ODT) 4 MG disintegrating tablet Take 1 tablet (4 mg total) by mouth every 8 (eight) hours as needed for nausea. 10 tablet 11/19/19 Active Additional Information Patient not taking.Reported on 11/19/2020 HYDROcodone-acetam inophen (NORCO) 5-325 mg per tablet Take 1 tablet by mouth as needed. 10/30/19 Active aspirin 81 mg chewable tablet Take 1 tablet (81 mg total) by mouth 2 (two) times a day. Take with food for 6 weeks for DVT prevention. 60 tablet 12/03/19 Active acetaminophen (TYLENOL) 325 mg Cap Take 650 mg by mouth every 6 (six) hours as needed. Do not take more than 3000mg acetaminophen per day (including in other prescribed or mlak-jky-rqmdscp medications, like Holden). 12/03/19 Active Active Problems Problem Noted Date Diagnosed Date Status post right hip replacement 01/31/2017 HTN (hypertension) Overview (11/19/2020): on meds Asthma Overview (11/19/2020): inhaler Hyperlipidemia Overview (11/19/2020): on meds Arthritis Hiatal hernia Restless leg syndrome GERD (gastroesophageal reflux disease) Overview (11/19/2020): on meds CKD (chronic kidney disease) Overview (11/19/2020): sees a renal doc pt unsure of name Urinary, incontinence, stress female Malignant neoplasm Overview (11/19/2020): breast ca l mastectomy no chemo or rad. Lumbar radiculopathy Immunizations Immunization Administration Dates Next Due Pneumococcal conjugate PCV13 02/01/2017 Family History Medical History Relation Comments Diabetes Brother Heart attack Mother Lung cancer Mother Heart attack Sister Relation Status Comments Brother Mother Sister Social History Tobacco Use Types Packs/Day Years Used Date Smoking Tobacco: Former Cigarettes 1 20 0 01/11/1972 - 01/11/1992 Smokeless Tobacco: Never Alcohol Use Standard Drinks/Week Comments Yes 1 (1 standard drink = 0.6 oz pur e alcohol) Education Answer Date Recorded Are you interested in more education? Not on dayana e 12/02/2022 Are you concerned about learning? Not on file 12/02/2022 No 12/02/2022 No 12/02/2022 Digital Access Answer Date Recorded No 01/01/2023 No 01/01/2023 No 01/01/2023 Reliable internet access at home? Not on file 01/01/2023 Device with a working camera? Not on file Comments No Sex and Gender Information Value Date Recorded Sex Assigned at Not on file Legal Sex Female 2:37 AM EST Gender Identity Not on file Sexual Orientation Not on file Last Filed Vital Signs Vital Sign Reading Time Taken Comments Blood Pressure 122/64 12/02/2020 4:55 PM EDT Pulse 79 12/02/2020 4:50 PM EDT Temperature 36.4 C (97.6 F) 12/02/2020 12:17 PM EDT Respiratory Rate 18 12/02/2020 3:56 PM EDT Oxygen Saturation 96% 12/02/2020 4:50 PM EDT Inhaled Oxygen Concentration - - Weight 72.1 kg (159 lb) 02/18/2021 9:54 AM EDT Height 154.9 cm (5' 1 ) 02/18/2021 9:54 AM EDT Body Mass Index 30.04 02/18/2021 9:54 AM EDT Plan of Treatment Health Maintenance Due Date Last Done Comments BLOOD PRESSURE 1941 DEPRESSION SCREENING 1953 ZOSTER VACCINES (1 of 2) 1960 OSTEOPOROSIS SCREENING INITIAL (ONE-TIME) 2006 RSV VACCINE (1 - 1-dose 75+ series) 2016 PNEUMOCOCCAL VACCINES (50+ years) (2 of 2 - PPSV23) 08/29/2017 07/04/2017, 02/01/2017 COVID-19 VACCINE (3 - season) 2024 10/01/2020, 09/14/2020 INFLUENZA VACCINE (#1) 2025 , 04/18/2019, 05/14/2018, Additional history exists Adult Td,Tdap Booster 05/08/2030 05/08/2020 HEPATITIS A VACCINES Aged Out No long er eligible based on patient's age to complete this topic HIB VACCINES Aged Out No longer eligi ble based on patient's age to complete this topic MENINGOCOCCAL VACCINES (ACWY) Aged Out No longer eligible based on patient's age to complete this topic MENINGOCOCCAL VACCINES (B) Aged Out N o longer eligible based on patient's age to complete this topic Medical Devices Implanted Type Area Principal Secretary Device Identifier Shelf Expiration Date Model / Serial / Lot Zeke Lens Implants [employer] Acet Shell 52e Hip 06 - [id number] Implanted:Qty: 1 on 01/31/2017 by Dereje Wu MD at [facility] Right: Hip [employer] 11/24/2026 [id number] / / [id number] G7 Neutral E1 Liner 36mm E Hip 11 - [id number] Implanted:Qty: 1 on 01/31/2017 by Dereje Wu MD at [facility] Right: Hip [employer] 11/23/2021 [id number] / / [id number] Tprlc 133 Mp Full Prof Type1 Pps Ho 8.0 Hip [id number] Implanted:Qty: 1 on 01/31/2017 by Dereje Wu MD at [facility] Right: Hip [employer] 07/27/2026 [id number] / / [id number] Hip Head Femoral Ceramic Bioloxd Mod 36mm -3 Nk Hip [id number] Implanted:Qty: 1 on 01/31/2017 by Dereje Wu MD at [facility] Right: Hip [employer] 11/14/2026 [id number] / / [id number] Acetabular Liner 80e30zu Size Ii Longevity Highly Crosslinked Polyethylene Neutral - [id number] Implanted:Qty: 1 on 12/02/2020 by Dereje Wu MD at [facility] Left: Acetabulum MICHAEL / DIV [employer] [id number] 07/06/2024 [id number] / / [id number] Description:The implant type , laterality (when applicable), size, and expiration date have been visually and verbally confirmed by the Surgeon, Circulating RN and Scrub Personnel. Acetabular Shell 52mm Size Ii Continuum Tivanium Trabecular Metal Hemisphere Cluster Hole - [id number] Implanted:Qty: 1 on 12/02/2020 by Dereje Wu MD at [facility] Left: Acetabulum MICHAEL / [employer] [id number] 02/03/2030 [id number] / / [id number] Description:The implant type , laterality (when applicable), size, and expiration date have been visually and verbally confirmed by the Surgeon, Circulating RN and Scrub Personnel. Hip Stem Size 9 Femoral Taperloc Complete Microplasty Pps Coating - [id number] Implanted:Qty: 1 on 12/02/2020 by Dereje Wu MD at [facility] Left: Femur [employer] [id number] 01/20/2028 [id number] / / [id number] Description:The implant type , laterality (when applicable), size, and expiration date have been visually and verbally confirmed by the Surgeon, Circulating RN and Scrub Personnel. Femoral Head 36mm Minus 3mm Type 1 Taper Hip Biolox Delta Modular Ceramic - [id number] Implanted:Qty: 1 on 12/02/2020 by Dereje Wu MD at [facility] Left: Femur MICHAEL / [employer] 06/05/2030 [id number] / / [id number] Description:The implant type , laterality (when applicable), size, and expiration date have been visually and verbally confirmed by the Surgeon, Circulating RN and Scrub Personnel. [place] [id number] Performable [employer] SUPPLEMENT MEDICARE PART A & B Member Subscriber Plan / Payer (Ef fective 2006-Present) Name:Danna Elias Member ID:[id number] Relation to Subscriber:Self Name:RomaineLadonna lirianoria A Subscriber ID:[id number] Payer ID:[id number] Group ID:Not on file Type:Medicare Address: [facility] [employer] [facility] [address] [place] [phone] Performable [employer] MEDEX SUPPLEMENT MEDICARE PART A & B [employer] MEDEX SUPPLEMENT MEDICARE PART A & B [employer] MEDEX SUPPLEMENT MEDICARE PART A & B [employer] MEDEX SUPPLEMENT MEDICARE PART A & B [employer] MEDEX SUPPLEMENT MEDICARE PART A & B [employer] MEDEX SUPPLEMENT MEDICARE PART A & B [employer] MEDEX SUPPLEMENT MEDICARE PART A & B [employer] MEDEX SUPPLEMENT MEDICARE PART A & B [employer] MEDEX SUPPLEMENT Advance Directives For more information, please contact: [phone] (9AM - 5PM [facility], Monday-Monday) Documents on File Type Date Recorded Patient 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 Hydraulic Backhoe Expl anation Healthcare Proxy 02/01/2017 5:00 PM * Full Code (Presumed) (Latest Code Status on File) Date Activated Date Inactivated Comments 01/31/2017 4:26 PM 02/03/2017 12:44 PM * Full Code (Presumed) Date Activated Date Inactivated Comments 01/31/2017 1:13 PM 01/31/2017 4:26 PM Healthcare Agents on File Name Relationship Healthcare [facility] Bijal Cameron Daughter .Primary Health Care Agent (Proxy form on file) Care Teams Bobbin Presser Relationship Specialty Start Date End Date Matthew Juarez MD [address] [place] [id number] PCP - General Internal Medicine 04/05/16 Additional Source Comments The information contained in this document represents components of the legal health record. It is not the complete legal health record.[facility]
--- OUTSIDE RECORDS SUMMARY | 2025-05-01 08:06 | XMS_ITS | Clinical Summary ---
Author Organization [facility] Facility Address [address] [address] Care Team Providers Care Lumber Tripper Name Role Phone Matthew Juarez MD Primary Care Provider [phone] Allergies Active Allergy Reactions Criticality Noted Date [...] patient's age to complete this topic Insurance [facility] [place] [address] [place] [address] Medicare Care Teams Lumber Tripper Relationship Specialty Start Date End Date Matthew Juarez MD [address] [place] [address] PCP - General 08/17/20
--- OUTSIDE RECORDS SUMMARY | 2025-05-01 08:06 | XMS_ITS | Encounter Summary ---
Author Organization [facility] Address [address] [place] [address] Phone Care Team Providers Care Environmental Programs Manager Name Role Phone Matthew Juarez MD Primary Care Provider [phone] Encounter Details Date Type Department Care Team (Late st Contact Info) Description 12/02/2020 Procedure Pass [facility] PERIOPERATIVE DEPT [address] [place] [address] Social History Tobacco Use Types Packs/Day Years [...] on filedocumented in this encounter Care Teams Environmental Programs Manager Relationship Specialty Start Date End Date Matthew Juarez MD [address] [place] [phone] PCP - General Internal Medicine 04/05/16 documented as of this encounter Additional Source Comments The information contained in this document represents components of the legal health record. It is not the complete legal health record.[facility]
--- OUTSIDE RECORDS SUMMARY | 2025-05-01 08:06 | XMS_ITS | Patient Health Record ---
[facility] Address [address] [place] [address] Care Team Providers Care Art Conservator Name Role Phone Matthew Juarez MD Primary Care Provider UnavailLotus [place] Unavailable [phone] Allergies Allergen (clinical drug ingredient) Drug/Non Drug [...] W/U Status Risk Notes Problem Hallux valgus (919039468) Hallux Valgus (735.0) Active confirmed Problem Hammer toe (979072675) Hammer toe (735.4) Active confirmed Problem Calcaneal spur (53469818) Calcaneal spur (726.73) Active confirmed Problem Pain in limb (51365552) Pain in Limb (729.5) Active confirmed Problem Plantar fasciitis (107746575) Plantar Fasciitis (728.71) Active confirmed Plan Of [...] Inc [address] [place] [address] [id number] Patel inDanna Self - patient is the insured [employer] Blue Shield [address] [place] [address] [id number] Patel inDanna Self - patient is the insured Medical (General) History Medical History History ICD Code osteoarthritis Cholesterol Hiatal hernia measles mumps chicken pox transfusions Surgical History Surgery Date(Month/Year) mastectomy 1989 Modified Becker Bunionectomy Right 02/19
--- OUTSIDE RECORDS SUMMARY | 2025-05-01 08:07 | XMS_ITS | Patient Health Record ---
Author Organization [facility] Address [address] [place] [address] Care Team Providers Care Fueler Name Role Phone Ann (RETIRED) Matthew MAZARIEGOS Primary Care Provider Unavailable Jayro Barnes Unavailable [phone] Reason For Referral No Information Medications Medication SIG (Take, Route, Frequency, Duration) Notes Start Date End Date Status Omeprazole 40 MG TAKE 1 CAPSULE BY [facility] EVERY DAY Orally Once a day Acti [...] Problem Status W/U Status Risk Notes Problem 37304044 Upper abdominal pain (R10.10) Active confirmed Problem 783728263 Gastroesophageal reflux disease, unspecified whether esophagitis present [...] [place] [address] [place] [address] [id number] [place] INEMMALIKA Self - patient is the insured MED[employer] ATTN CLAIMS [address] [place] [address] [id number] [place], MAL[place]A Self - patient is the insured Medical (General) History Medical History History ICD Code Hypertension Arthritis Asthma GERD Hyperlipidemia Breast cancer-left--1989--surgery as cindy ow Denies SD,DM,CVA,Lung disease,renal dise ase Negative colonoscopy in her 60's Surgical History Surgery Date(Month/Year) Right hip replacement 2016 Left hip replacement 2020 Left mastectomy Appendectomy 2018
--- OUTSIDE RECORDS SUMMARY | 2025-05-01 08:07 | XMS_ITS | Encounter Summary ---
Author Organization [facility] Address [address] [place] [address] Phone Care Team Providers Care Customizer Name Role Phone Matthew Juarez MD Primary Care Provider [phone] Encounter Details Date Type Department Care Team (Late st Contact Info) Description 01/31/2017 Procedure Pass [facility] PERIOPERATIVE DEPT [address] [place] [address] Social History Tobacco Use Types Packs/Day Years Used Date Smoking Tobacco: Former Cigarettes 1 20 0 01/11/1972 - 01/11/1992 Smokeless Tobacco: Never Alcohol Use Standard Drinks/Week Comments Yes 1 (1 standard drink = 0.6 oz pur e alcohol) Comments Unknown Sex and Gender Information Value Date Recorded Sex Assigned at Not on file Legal Sex Female 2:37 AM EST Gender Identity Not on file Sexual Orientation Not on file documented as of this encounter Plan of Treatment Not on file documented as of this encounter Visit Diagnoses Not on filedocumented in this encounter Care Teams Customizer Relationship Specialty Start Date End Date Matthew Juarez MD [address] [place] [address] PCP - General Internal Medicine 04/05/16 documented as of this encounter Additional Source Comments The information contained in this document represents components of the legal health record. It is not the complete legal health record.[facility]
== END 2025-05-01 08:47 | disposition home or self-care (01) ==
LOC: HO.HSMS 08:00
PROVIDERS: PCP Internal Medicine; Visit Provider Psychiatry & Neurology Neurology
DX: G45.4 Transient global amnesia (principal); I73.9 Peripheral vascular disease, unspecified; G47.00 Insomnia, unspecified
CPT/HCPCS: 99204; G2211

== ENCOUNTER → 2025-05-01 07:59 | Outpatient (BNVA) | payer MEDICARE, SELFPAY | PROVIDERS: PCP Internal Medicine; Visit Provider Psychiatry & Neurology Neurology | DX: G47.00 Insomnia, unspecified (principal); I73.9 Peripheral vascular disease, unspecified; Z86.73 Personal history of transient ischemic attack (TIA), and cerebral infarction without residual deficits | CPT/HCPCS: 99202 ==

== ENCOUNTER 2025-05-05 08:44 | Outpatient (REF) | payer MEDICARE, SELFPAY ==
--- OUTSIDE RECORDS SUMMARY | 2025-05-05 09:10 | XMS_ITS | Patient Health Record ---
Author Organization [facility] Address [address] [place] [address] Care Team Providers Care Research And Development Director Name Role Phone Matthew Juarez MD Primary Care Provider UnavailLotus [place] Unavailable [phone] Allergies Allergen (clinical drug ingredient) Drug/Non Drug [...] W/U Status Risk Notes Problem Hallux valgus (458679544) Hallux Valgus (735.0) Active confirmed Problem Hammer toe (842508841) Hammer toe (735.4) Active confirmed Problem Calcaneal spur (43444769) Calcaneal spur (726.73) Active confirmed Problem Pain in limb (06469667) Pain in Limb (729.5) Active confirmed Problem Plantar fasciitis (849576751) Plantar Fasciitis (728.71) Active confirmed Plan Of [...] Inc [address] [place] [address] [id number] Patel inDanna Self - patient is the insured [employer] Blue Shield [address] [place] [address] [id number] Patel inDanna Self - patient is the insured Medical (General) History Medical History History ICD Code osteoarthritis Cholesterol Hiatal hernia measles mumps chicken pox transfusions Surgical History Surgery Date(Month/Year) mastectomy 1989 Modified Becker Bunionectomy Right 02/19
--- OUTSIDE RECORDS SUMMARY | 2025-05-05 09:10 | XMS_ITS | Encounter Summary ---
Author Organization [facility] Address [address] [place] [address] Phone Care Team Providers Care Imposer Name Role Phone Matthew Juarez MD Primary Care Provider [phone] Encounter Details Date Type Department Care Team (Late st Contact Info) Description 12/02/2020 Procedure Pass [facility] PERIOPERATIVE DEPT [address] [place] [address] Social History Tobacco Use Types Packs/Day Years [...] on filedocumented in this encounter Care Teams Imposer Relationship Specialty Start Date End Date Matthew Juarez MD [address] [place] [address] PCP - General Internal Medicine 04/05/16 documented as of this encounter Additional Source Comments The information contained in this document represents components of the legal health record. It is not the complete legal health record.[facility]
--- OUTSIDE RECORDS SUMMARY | 2025-05-05 09:10 | XMS_ITS | Clinical Summary ---
Author Organization [facility] Facility Address [address] [address] Care Team Providers Care Ticket Counter Name Role Phone Matthew Juarez MD Primary Care Provider [phone] Allergies Active Allergy Reactions Criticality Noted Date [...] complete this topic Insurance [facility] [place] [address] Medicare Care Teams Ticket Counter Relationship Specialty Start Date End Date Matthew Juarez MD [address] [place] [address] PCP - General 08/17/20
--- OUTSIDE RECORDS SUMMARY | 2025-05-05 09:10 | XMS_ITS | Patient Health Record ---
Author Organization [facility] Address [address] [place] [address] Care Team Providers Care Mailing Clerk Name Role Phone Ann (RETIRED) Matthew MAZARIEGOS Primary Care Provider Unavailable Jayro Barnes Unavailable [phone] Reason For Referral No Information Medications Medication SIG (Take, Route, Frequency, Duration) Notes Start Date End Date Status Omeprazole 40 MG TAKE [address] [facility] EVERY DAY Orally Once a [...] Problem Status W/U Status Risk Notes Problem [id number] Upper abdominal pain (R10.10) Active confirmed Problem 291643042 Gastroesophageal reflux disease, unspecified whether esophagitis present [...] [place] [address] [place] [address] [id number] [place] INEMMALIKA Self - patient is the insured [employer] ATTN CLAIMS [address] [place] [address] [id number] [place], MALIKA Self - patient is the insured Medical (General) History Medical History History ICD Code Hypertension Arthritis Asthma GERD Hyperlipidemia Breast cancer-left--1989--surgery as cindy ow Denies HI,DM,CVA,Lung disease,renal dise ase Negative colonoscopy in her 60's Surgical History Surgery Date(Month/Year) Right hip replacement 2016 Left hip replacement 2020 Left mastectomy Appendectomy 2018
--- OUTSIDE RECORDS SUMMARY | 2025-05-05 09:10 | XMS_ITS | Clinical Summary ---
Author Organization [facility] Address [address] [facility] [address] [place] [address] Phone Care Team Providers Care Survey Analyst Name Role Phone Matthew Juarez MD Primary Care Provider [phone] Allergies Active Allergy Reactions Criticality Noted Date [...] per day (including in other prescribed or sche-ojq-tislyhq medications, like [place]). 12/03/19 Active Active Problems Problem Noted Date [...] of 2 - PPSV23) 08/29/2017 07/04/2017, 02/01/2017 INFLUENZA VACCINE (#1) 2025 0, 04/18/2019, 05/14/2018, Additional history exists COVID-19 VACCINE ( season) 2025 10/01/2020, 09/14/2020 Adult Td,Tdap Booster 05/08/2030 05/08/2020 HEPATITIS A [...] this topic Medical Devices Implanted Type Area Tanner Rotary Drum Continuous Process Device Identifier Shelf Expiration Date Model / Serial / Lot Zeke Lens Implants G[employer] Pps Ltd Acet Shell 52e Hip 06 - [id number] Implanted:Qty: 1 on 01/31/2017 by Dereje Wu MD at [facility] Right: Hip [employer] 11/24/2026 [id number] / / [id number] G7 Neutral E1 Liner 36mm E Hip 11 - [id number] Implanted:Qty: 1 on 01/31/2017 by Dereje Wu MD at [facility] Right: Hip [employer] 11/23/2021 [id number] / / [id number] Tprlc 133 Mp Full Prof Type1 Pps Ho 8.0 Hip [id number] Implanted:Qty: 1 on 01/31/2017 by Dereje Wu MD at [facility] Right: Hip [employer] 07/27/2026 [id number] / / [id number] Hip Head Femoral Ceramic Bioloxd Mod 36mm -3 Nk Hip [id number] Implanted:Qty: 1 on 01/31/2017 by Dereje Wu MD at [facility] Right: Hip [employer] 11/14/2026 [id number] / / [id number] Acetabular Liner [id number] Size Ii Longevity Highly Crosslinked Polyethylene Neutral - [id number] Implanted:Qty: 1 on 12/02/2020 by Dereje Wu MD at [facility] Left: Acetabulum MICHAEL / DIV OF Spaciety ([employer]) [id number] 07/06/2024 [id number] / / [id number] Description:The implant type , laterality (when applicable), size, and expiration date have been visually and verbally confirmed by the Surgeon, Circulating RN and Scrub Personnel. Acetabular Shell 52mm Size Ii Continuum Tivanium Trabecular Metal Hemisphere Cluster Hole - [id number] Implanted:Qty: 1 on 12/02/2020 by Dereje Wu MD at [facility] Left: Acetabulum MICHAEL / DIV OF Spaciety ([employer]) [id number] 02/03/2030 [id number] / / [id number] Description:The implant type , laterality (when applicable), size, and expiration date have been visually and verbally confirmed by the Surgeon, Circulating RN and Scrub Personnel. Hip Stem Size 9 Femoral Taperloc Complete Microplasty Pps Coating - [id number] Implanted:Qty: 1 on 12/02/2020 by Dereje Wu MD at [facility] Left: Femur [employer] [id number] 01/20/2028 [id number] / / [id number] Description:The implant type , laterality (when applicable), size, and expiration date have been visually and verbally confirmed by the Surgeon, Circulating RN and Scrub Personnel. Femoral Head 36mm Minus 3mm Type 1 Taper Hip Biolox Delta Modular Ceramic - [id number] Implanted:Qty: 1 on 12/02/2020 by Dereje Wu MD at [facility] Left: Femur MICHAEL / DIV OF [employer]aciety ([employer]) 06/05/2030 [id number] / / [id number] Description:The implant type , laterality (when applicable), size, and expiration date have been visually and verbally confirmed by the Surgeon, Circulating RN and Scrub Personnel. Insurance [place] [id number] [employer] MEDEX SUPPLEMENT MEDICARE PART A & B Member Subscriber Plan / Payer (Ef fective 2006-Present) Name:Danna Elias Member ID:[id number] Relation to Subscriber:Self Name:RomaineLadonna lirianoria A Subscriber ID:[id number] Payer ID:[id number] Group ID:Not on file Type:Medicare Address: [facility] [email or web address] [facility] [address] [place] [phone] [employer] [place] MEDEX SUPPLEMENT MEDICARE PART A & B [employer] MEDEX SUPPLEMENT MEDICARE PART A & B [employer] MEDEX SUPPLEMENT MEDICARE PART A & B [employer] MEDEX SUPPLEMENT MEDICARE PART A & B [employer] MEDEX SUPPLEMENT MEDICARE PART A & B [employer] MEDEX SUPPLEMENT MEDICARE PART A & B [employer] MEDEX SUPPLEMENT MEDICARE PART A & B [employer] MEDEX SUPPLEMENT MEDICARE PART A & B [employer] MEDEX SUPPLEMENT Advance Directives For more information, please contact: [phone] (9AM - 5PM [facility], Monday-Monday) Documents on File Type Date Recorded Patient Sheet Rock Taper Helper Expl anation Healthcare Proxy 02/01/2017 5:00 PM * Full Code (Presumed) (Latest Code Status on File) Date Activated Date Inactivated Comments 01/31/2017 4:26 PM 02/03/2017 12:44 PM * Full Code (Presumed) Date Activated Date Inactivated Comments 01/31/2017 1:13 PM 01/31/2017 4:26 PM Healthcare Agents on File Name Relationship Healthcare Agent [facility] Bijal Cameron Daughter .Primary Health Care Agent (Proxy form on file) Care Teams Survey Analyst Relationship Specialty Start Date End Date Matthew Juarez MD [address] [place] [address] [id number] PCP - General Internal Medicine 04/05/16 Additional Source Comments The information contained in this document represents components of the legal health record. It is not the complete legal health record.[facility]
--- OUTSIDE RECORDS SUMMARY | 2025-05-05 09:10 | XMS_ITS | Encounter Summary ---
Author Organization [facility] Address [address] [place] [address] Phone Care Team Providers Care Retirement Manager Name Role Phone Matthew Juarez MD Primary Care Provider [phone]- [phone] Encounter Details Date Type Department Care Team (Late st Contact Info) Description 01/31/2017 Procedure Pass [facility] PERIOPERATIVE DEPT [address] [place] [address] Social History Tobacco Use Types Packs/Day Years [...] on filedocumented in this encounter Care Teams Retirement Manager Relationship Specialty Start Date End Date Matthew Juarez MD [address] [place] [address] PCP - General Internal Medicine 04/05/16 documented as of this encounter Additional Source Comments The information contained in this document represents components of the legal health record. It is not the complete legal health record.[facility]
[2025-05-05 10:08] LABS: Appearance Urine Clear; Glucose Urine UA Negative (Negative); PH 5.5 (5.0-9.0); Specific Gravity - Urine 1.015 (1.005-1.025); UMIC TRIGGER UACC YES
[2025-05-05 10:34] LABS: UACC Culture Trigger YES
[2025-05-05 11:00] LABS: Anion Gap 16 (12-20); Blood Urea Nitrogen 31 mg/dL (9-16); Calcium 9.6 mg/dL (8.4-10.2); Carbon Dioxide 24 mmol/L (22-29); Chloride 103 mmol/L (96-108); Estimated Glomerular Filt Rate 47; Potassium 3.5 mmol/L (3.3-5.1); Sodium 139 mmol/L (135-145)
== END 2025-05-05 08:45 | disposition home or self-care (01) ==
LOC: HO.HMGCLDS 08:44
PROVIDERS: Physician Assistant Medical; PCP Internal Medicine; Visit Provider Internal Medicine
DX: Z00.00 Encounter for general adult medical examination without abnormal findings (principal)
CPT/HCPCS: 36415; 80048; 81001; 87086

== ENCOUNTER 2025-05-06 11:01 | Outpatient (AMB) | payer MEDICARE, SELFPAY ==
[2025-05-06 11:02] VITALS: BP 128/76; PULSE 84; RESP 14; TEMP 36.3; O2SAT 96; BMI 28.7
--- NOTE | 2025-05-06 11:02 | MHC.PC.OV ---
Vital Signs 05/06/25 11:02 Height 5 ft 1.61 in Weight 155 lb BMI 28.7 BP 128/76 Respiration 14 Pulse 84 Pulse Source Pulse Oximeter Temp 97.4 F Temp Source Temporal Artery Scan Pulse Oximetry (%) 96 Oxygen Delivery Method Room Air Intake Visit Reasons: follow up Nursing Care Attendant Required: No Accompanied by: self Allergies adhesive tape Allergy (Severe, Verified 05/06/25 11:03) Blister latex Allergy (Intermediate, Verified 05/06/25 11:03) Rash Tobacco use date assessed: 05/06/25 Dental Screening Dental Screen Date: 03/03/25 [facility] Medical History Insomnia Transient global amnesia Brain atrophy 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 Small vessel disease History of mammogram (~08/17/24) Screening for osteoporosis Hyperlipidemia Macular pucker Depression History of TIA (transient ischemic attack) Wears glasses Wears dentures Arthritis Back pain Slow to wake up after anesthesia History of blood transfusion (1962) Anxiety GERD (gastroesophageal reflux disease) FHx: bilateral hip replacements Acid reflux Hypercholesteremia Hypertension Surgical History Hx of squamous cell carcinoma excision (01/25/24) Hx of colonoscopy (~03/26/21) History of back surgery (~2013) History of bilateral hip replacements H/O mastectomy (1989) Hx of appendectomy Family History Mother Lung cancer Father Coronary thrombosis Social History Household Members: None Housing: House Are you a primary acute care physician to a significant other at home: No Do you presently have visiting nurse or other home services: No 75 years or older and lives alone: Yes Alcohol intake: current Alcohol intake frequency: holidays/special occasions only Patient Tobacco Use Status: Former Tobacco user e-Cigarette/Vaping Use: Never Used service: No Current occupational status: retired Cognitive needs: No Hearing needs: No Vision needs: Yes (reading glasses) Questionnaire PHQ-9 Over the last 2 weeks, how often have you been bothered by any of the following problems? 1. Little interest or pleasure in doing things: not at all 2. Feeling down, depressed, or hopeless: several days 3. Trouble falling or staying asleep, or sleeping too much: nearly every day 4. Feeling tired or having little energy: several days 5. Poor appetite or overeating: several days 6. Feeling bad about yourself - or that you are a failure or have let yourself or your family down: not at all 7. Trouble concentrating on things, such as reading the newspaper or watching television: not at all 8. Moving or speaking so slowly that other people could have noticed. Or the opposite - being so fidgety or restless that you have been moving around a lot more than usual: several days 9. Thoughts that you would be better off or of hurting yourself in some way: not at all Total score: 7 Depression Screening Interpretation: Positive Depression Screening Follow-up: Existing condition, In treatment and Community Mental Health Worker F/U Depression Screening Done: Yes 50759 - PHQ-9 Billing: Yes Source: Developed by Drs. Jayro Adamson, Doreen Ayon, Ian Romo and colleagues, with an educational ev from [employer]. Thrive Questionnaire Date Thrive assessed: 03/03/25 I am a: Patient What is your living situation today?: I have a steady place to live Within the past 12 months, did the food you bought not last and you didn't have the money to get more?: Never true Within the past 12 months, did you worry whether your food would run out before you got money to buy more?: Never true Do you have trouble paying for medicines?: No Do you have trouble getting transportation to medical appointments?: No Do you have trouble paying your heating and electricity bill?: No Do you have trouble taking care of your child, family member or friend?: No Do you have trouble with day-to-day activities such as bathing, preparing meals, shopping, managing finances, etc.?: No Are you currently unemployed and looking for a job?: No Are you interested in more education?: No Please select the resources that you would like help with: None Currently or been in a relationship where the following occur: No concerns reported THRIVE Score: 0 AUDIT C Alcohol Use Questionnaire (AUDIT-C) 1. How often do you have a drink containing alcohol?: Monthly or less 2. How many drinks containing alcohol do you have on a typical day when you are drinking?: 1 or 2 3. How often do you have six or more drinks on one occasion?: Never Total Score: 1 Score Reviewed/Action Taken: No SAIMA-7 AMB Questionnaire SAIMA-7 Date SAIMA - 7 assessed: 03/03/25 Feeling nervous, anxious, or on edge: 2 = More than half the days Not being able to stop or control worryin = Nearly every day Worrying too much about different things: 3 = Nearly every day Trouble relaxin = Not at all Being so restless that it is hard to sit still: 0 = Not at all Becoming easily annoyed or irritable: 0 = Not at all Feeling afraid as if something awful might happen: 2 = More than half the days Total SAIMA-7 score (0-4 normal; 5-9 mild; 10-14 moderate; 15-21 severe): 10 Source: Developed by Drs. Jayro Adamson, Doreen Ayon, Ian Romo and colleagues, with an educational ev from [employer]. SAIMA-7 Assessment Billing SAIMA-7 Assessment Tool: SAIMA-7 Assessment 10917 Physical exam (Primary Care) Vital Signs: Last Vital Signs Temp 97.4 F 05/06/25 11:02 Pulse 84 05/06/25 11:02 Resp 14 05/06/25 11:02 BP 128/76 05/06/25 11:02 Pulse Ox 96 05/06/25 11:02 Oxygen Delivery Method Room Air 05/06/25 11:02 BMI result Body Mass Index 28.7 Tobacco/Smoking Status: Tobacco use Status Tobacco use date assessed 05/06/25 05/06/25 11:03 Patient Tobacco Use Status Former Tobacco user 05/06/25 11:03 Tobacco use type 03/04/25 08:53 e-Cigarette/Vaping Use Never Used 05/06/25 11:03 PHQ-9: PHQ-9 Score PHQ-9: Total score 7 05/06/25 11:18 Depression Screening Interpretation: Positive Depression Screening Follow-up: Existing condition, In treatment and Community Mental Health Worker F/U Thrive Assessment: Date of Thrive Assessment Date Thrive assessed 03/03/25 05/06/25 11:03 Currently or been in a relationship where the following occur: No concerns reported Office Procedures Flu Questionnaire Does the patient have a severe egg allergy?: No Does the patient have severe life threatening allergies?: No Does the patient have a fever or illness today?: No Has the patient ever had Guillain-[place] Syndrome?: No Has the patient ever had any past reaction to a flu shot?: No Immunizations Fluarix 1523-1313 (PF) 45 mcg (15 mcg x 3)/0.5 mL IM syringe Performing Provider: Сергей Arreaga MD [facility] Documented (not given) by: LOTTIE Caceres on 05/06/25 11:10 Reason Not Given: Received Previously Coding Additional Codes SAIMA-7 Assessment Billing - SAIMA-7 Assessment Tool: SAIMA-7 Assessment 32075 ([id number]) PHQ-9 - 04907 - PHQ-9 Billing: Yes ([id number]) Assessment & Plan Assessment & Plan Orders: Orders Influenza [id number] Immunization Today Z23 - Encounter for immunization Medications: New enalapril maleate 5 mg PO DAILY 90 tabs 0RF
--- OUTSIDE RECORDS SUMMARY | 2025-05-06 12:30 | XMS_ITS | Patient Health Record ---
Author Organization [facility] Address [address] [place] [address] Care Team Providers Care First Cook Name Role Phone Ann (RETIRED) Matthew MAZARIEGOS Primary Care Provider Unavailable Jayro Barnes Unavailable [phone] Reason For Referral No Information Medications Medication SIG (Take, Route, Frequency, Duration) Notes Start Date End Date Status Omeprazole 40 MG TAKE 1 CAPSULE BY [facility] EVERY DAY Orally Once a day Acti [...] Problem Status W/U Status Risk Notes Problem 83182324 Upper abdominal pain (R10.10) Active confirmed Problem 892129879 Gastroesophageal reflux disease, unspecified whether esophagitis present [...] [place] [address] [place] [address] [id number] [place] INEMMALIKA Self - patient is the insured [employer] ATTN CLAIMS [address] [place] [address] [phone] [id number] [place], MALIKA Self - patient is the insured Medical (General) History Medical History History ICD Code Hypertension Arthritis Asthma GERD Hyperlipidemia Breast cancer-left--1989--surgery as cindy ow Denies SD,DM,CVA,Lung disease,renal dise ase Negative colonoscopy in her 60's Surgical History Surgery Date(Month/Year) Right hip replacement 2016 Left hip replacement 2020 Left mastectomy Appendectomy 2018
--- OUTSIDE RECORDS SUMMARY | 2025-05-06 12:30 | XMS_ITS | Encounter Summary ---
Author Organization [facility] Address [address] [place] [address] Phone Care Team Providers Care Software Requirements Engineer Name Role Phone Matthew Juarez MD Primary Care Provider [phone] Encounter Details Date Type Department Care Team (Late st Contact Info) Description 01/31/2017 Procedure Pass [facility] PERIOPERATIVE DEPT [address] [place] [address] Social History Tobacco Use Types Packs/Day Years [...] on filedocumented in this encounter Care Teams Software Requirements Engineer Relationship Specialty Start Date End Date Matthew Juarez MD [address] [place] [address] PCP - General Internal Medicine 04/05/16 documented as of this encounter Additional Source Comments The information contained in this document represents components of the legal health record. It is not the complete legal health record.[facility]
--- OUTSIDE RECORDS SUMMARY | 2025-05-06 12:30 | XMS_ITS | Patient Health Record ---
Author Organization [facility] Address [address] [place] [address] Care Team Providers Care Peanut Farmer Name Role Phone Matthew Juarez MD Primary Care Provider UnavailLotus [place] Unavailable [phone] Allergies Allergen (clinical drug ingredient) Drug/Non Drug [...] W/U Status Risk Notes Problem Hallux valgus (600723449) Hallux Valgus (735.0) Active confirmed Problem Hammer toe (111372330) Hammer toe (735.4) Active confirmed Problem Calcaneal spur (03464022) Calcaneal spur (726.73) Active confirmed Problem Pain in limb (51705145) Pain in Limb (729.5) Active confirmed Problem Plantar fasciitis (663099031) Plantar Fasciitis (728.71) Active confirmed Plan Of [...] Inc [address] [place] [address] [id number] Patel inDanna Self - patient is the insured [employer] Blue Shield [address] [place] [address] [id number] Patel inDanna Self - patient is the insured Medical (General) History Medical History History ICD Code osteoarthritis Cholesterol Hiatal hernia measles mumps chicken pox transfusions Surgical History Surgery Date(Month/Year) mastectomy 1989 Modified Becker Bunionectomy Right 02/19
--- OUTSIDE RECORDS SUMMARY | 2025-05-06 12:30 | XMS_ITS | Clinical Summary ---
Author Organization [facility] Address [address] [address] Care Team Providers Care Chief Solution Architect Name Role Phone Matthew Juarez MD Primary Care Provider [phone] Allergies Active Allergy Reactions Criticality Noted Date [...] complete this topic Insurance [facility] [place] [address] [address] [place] [address] Medicare Care Teams Chief Solution Architect Relationship Specialty Start Date End Date Matthew Juarez MD [address] [place] [address] PCP - General 08/17/20
--- OUTSIDE RECORDS SUMMARY | 2025-05-06 12:30 | XMS_ITS | Encounter Summary ---
Author Organization [facility] Address [address] [place] [address] Phone Care Team Providers Care Wound Care Technician Name Role Phone Matthew Juarez MD Primary Care Provider [phone]- [phone] Encounter Details Date Type Department Care Team (Late st Contact Info) Description 12/02/2020 Procedure Pass [facility] PERIOPERATIVE DEPT [address] [place] [address] Social History Tobacco Use Types Packs/Day Years [...] on filedocumented in this encounter Care Teams Wound Care Technician Relationship Specialty Start Date End Date Matthew Juarez MD [address] [place] [id number] PCP - General Internal Medicine 04/05/16 documented as of this encounter Additional Source Comments The information contained in this document represents components of the legal health record. It is not the complete legal health record.[facility]
--- OUTSIDE RECORDS SUMMARY | 2025-05-06 12:30 | XMS_ITS | Clinical Summary ---
Author Organization [facility] Address [address] [facility] [address] [place] [address] Phone Care Team Providers Care Tool Polishing Machine Operator Name Role Phone Matthew Juarez MD Primary Care Provider +1- [phone] Allergies Active Allergy Reactions Criticality Noted Date [...] per day (including in other prescribed or arhm-fnw-kzscgwd medications, like [place]). 12/03/19 Active Active Problems Problem Noted Date [...] this topic Medical Devices Implanted Type Area Outpatient Clerk Device Identifier Shelf Expiration Date Model / Serial / Lot Zeke Lens Implants [employer] Acet Shell 52e Hip 06 - [id number] Implanted:Qty: 1 on 01/31/2017 by Dereje Wu MD at [facility] Right: Hip [employer] 11/24/2026 [id number] / / [id number] G7 Neutral E1 Liner 36mm E Hip 11 - [id number] Implanted:Qty: 1 on 01/31/2017 by Dereje Wu MD at [facility] Right: Hip [employer] 11/23/2021 [id number] / / [id number] Tprlc 133 Mp Full Prof Type1 Pps Ho 8.0 Hip [id number] Implanted:Qty: 1 on 01/31/2017 by Dereje Wu MD at [facility] Right: Hip [employer] 07/27/2026 [id number] / / [id number] Hip Head Femoral Ceramic Bioloxd Mod 36mm -3 Nk Hip [id number] Implanted:Qty: 1 on 01/31/2017 by Dereje Wu MD at [facility] Right: Hip [employer] 11/14/2026 [id number] / / [id number] Acetabular Liner [id number] Size Ii Longevity Highly Crosslinked Polyethylene Neutral - [id number] Implanted:Qty: 1 on 12/02/2020 by eDreje Wu MD at [facility] Left: Acetabulum MICHAEL / DIV OF [employer] [id number] 07/06/2024 [id number] / / [id number] Description:The implant type , laterality (when applicable), size, and expiration date have been visually and verbally confirmed by the Surgeon, Circulating RN and Scrub Personnel. Acetabular Shell 52mm Size Ii Continuum Tivanium Trabecular Metal Hemisphere Cluster Hole - [id number] Implanted:Qty: 1 on 12/02/2020 by Dereje Wu MD at [facility] Left: Acetabulum MICHAEL / DIV OF [employer] [id number] 02/03/2030 [id number] / / [id number] Description:The implant type , laterality (when applicable), size, and expiration date have been visually and verbally confirmed by the Surgeon, Circulating RN and Scrub Personnel. Hip Stem Size 9 Femoral Taperloc Complete Microplasty Pps Coating - [id number] Implanted:Qty: 1 on 12/02/2020 by Dereje Wu MD at [facility] Left: Femur [employer] [id number] 01/20/2028 [id number] / / [id number] Description:The implant type , laterality (when applicable), size, and expiration date have been visually and verbally confirmed by the Surgeon, Circulating RN and Scrub Personnel. Femoral Head 36mm Minus 3mm Type 1 Taper Hip Biolox Delta Modular Ceramic - [id number] Implanted:Qty: 1 on 12/02/2020 by Dereje Wu MD at [facility] Left: Femur MICHAEL / DIV [employer] 06/05/2030 [id number] / / [id number] Description:The implant type , laterality (when applicable), size, and expiration date have been visually and verbally confirmed by the Surgeon, Circulating RN and Scrub Personnel. Insurance [place] [id number] [employer] CROSS MEDEX SUPPLEMENT MEDICARE PART A & B Member Subscriber Plan / Payer (Ef fective 2006-Present) Name:Danna Elias Member ID:[id number] Relation to Subscriber:Self Name:RomaineLadonna lirianoria A Subscriber ID:[id number] Payer ID:[id number] Group ID:Not on file Type:Medicare Address: [facility] [employer] [facility] [address] [place] [id number] [employer] [place] MEDEX SUPPLEMENT MEDICARE PART A & B [facility] MEDEX SUPPLEMENT MEDICARE PART A & B [facility] MEDEX SUPPLEMENT MEDICARE PART A & B [facility] MEDEX SUPPLEMENT MEDICARE PART A & B [facility] MEDEX SUPPLEMENT MEDICARE PART A & B [facility] MEDEX SUPPLEMENT MEDICARE PART A & B [facility] MEDEX SUPPLEMENT MEDICARE PART A & B [facility] MEDEX SUPPLEMENT MEDICARE PART A & B [facility] MEDEX SUPPLEMENT Advance Directives For more information, please contact: [phone] (9AM - 5PM [facility], Monday-Monday) Documents on File Type Date Recorded 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 Healthcare Proxy 02/01/2017 5:00 PM * Full Code (Presumed) (Latest Code Status on File) Date Activated Date Inactivated Comments 01/31/2017 4:26 PM 02/03/2017 12:44 PM * Full Code (Presumed) Date Activated Date Inactivated Comments 01/31/2017 1:13 PM 01/31/2017 4:26 PM Healthcare Agents on File Name Relationship Healthcare Agent [facility] Communication Bijal Cameron Daughter .Primary Health Care Agent (Proxy form on file) Care Teams Tool Polishing Machine Operator Relationship Specialty Start Date End Date Matthew Juarez MD [address] [place] [address] [id number] PCP - General Internal Medicine 04/05/16 Additional Source Comments The information contained in this document represents components of the legal health record. It is not the complete legal health record.[facility]
== END 2025-05-06 11:41 | disposition home or self-care (01) ==
LOC: HO.HMCSH 11:01
PROVIDERS: PCP Internal Medicine; Visit Provider Internal Medicine
DX: Z23 Encounter for immunization (principal)

== ENCOUNTER → 2025-05-06 11:01 | Outpatient (BNVA) | payer MEDICARE, SELFPAY | PROVIDERS: PCP Internal Medicine; Visit Provider Internal Medicine | DX: I10 Essential (primary) hypertension (principal); R32 Unspecified urinary incontinence; Z28.89 Immunization not carried out for other reason | CPT/HCPCS: 90471; 96127; 99212 ==

== ENCOUNTER 2025-05-14 10:15 | Outpatient (REF) | payer MEDICARE, SELFPAY ==
--- NOTE | ~2025-05-14 | MM_ITS ---
EXAMINATION: DXA BONE DENSITY EXTREMITY HISTORY: M81.0 - Age-related osteoporosis without current pathological fracture TECHNIQUE: Simpli.fi Dual energy absorptiometry (DEXA) of the lumbar spine and distal radius was performed. The hips are not evaluated due to a history of prior bilateral total hip arthroplasty. COMPARISON: Comparison is made with the prior examination dated 05/27/2016. FINDINGS: The bone mineral density of the lumbar spine is 1.360 g/cm2, corresponding to a T-score of 1.5, and a Z-score of 3.3. This is indicative of normal bone mineral density. This represents a BMD change of 4.1% compared to the prior exam. This is statistically significant. The bone mineral density of the distal radius is 0.659 g/cm2, corresponding to a T-score of -2.5, and a Z-score of 0.6. This is indicative of osteoporosis. MM/XR DEXA appendicular skeleton IMPRESSION: Based on bone mineral density, and according to World Health Organization (WHO) criteria, the diagnosis is consistent with osteoporosis. Statistically, 68% of repeat scans fall within 1 SD (+/- 0.010 g/cm2 for AP spine L1-L4) and 1 SD (+/- 0.012 g/cm2 for femur total) FRAX is a trademark of the [employer] [facility] Metabolic Bone Disease, a World Health Organization (WHO) Collaborating Center. Electronically signed by: Jayro Feldman MD 05/14/2025 11:05 AM EDT
== END 2025-05-14 10:16 | disposition home or self-care (01) ==
LOC: HO.MAMMO 10:15
PROVIDERS: PCP Internal Medicine; Visit Provider Physician Assistant Medical
DX: M81.0 Age-related osteoporosis without current pathological fracture (principal)
CPT/HCPCS: 77081

== ENCOUNTER → 2025-05-14 10:30 | Outpatient (BNV) | payer MEDICARE, SELFPAY | PROVIDERS: PCP Internal Medicine; Visit Provider Radiology Diagnostic Radiology | DX: E28.39 Other primary ovarian failure (principal) | CPT/HCPCS: 77081 ==

== ENCOUNTER 2025-05-16 08:53 | Outpatient (REF) | payer MEDICARE, SELFPAY ==
--- OUTSIDE RECORDS SUMMARY | 2025-05-16 09:16 | XMS_ITS | Clinical Summary ---
Author Organization [facility] Facility Address [address] [address] Care Team Providers Care White Metal Caster Name Role Phone Matthew Juarez MD Primary Care Provider [phone] Allergies Active Allergy Reactions Criticality Noted Date [...] patient's age to complete this topic Insurance [facility] [place] [address] [address] [place] [address] Medicare Care Teams White Metal Caster Relationship Specialty Start Date End Date Matthew Juarez MD [address] [place] [address] PCP - General 08/17/20
[2025-05-16 10:06] LABS: MANUAL DIFF FLAG NO
[2025-05-16 10:19] LABS: Hematocrit 40.2 % (37.0-47.0); Hemoglobin 13.1 g/dl (12.0-16.0); Imm Gran Abs Auto 0.02 X10*3/uL (0.00-0.03); Imm Gran Pct Auto 0.4 % (0.0-0.4); Lymphocytes Absolute Auto 1.9 X10*3/uL (1.2-4.9); Mean Corpuscular HGB Conc 32.6 g/dl (31.0-35.0); Mean Corpuscular Hemoglobin 29.7 pg (27.0-33.0); Mean Corpuscular Volume 91.2 fL (80.0-98.0); NRBC Abs Auto 0.000 X10*3/uL (0.0-0.012); NRBC Pct Auto 0.0 /100WBC (0.0-0.2); Platelet Count 228 X10*3/uL (160-400); Red Blood Count 4.41 X10*6/uL (4.20-5.50); White Blood Count 5.4 X10*3/uL (4.8-10.8)
[2025-05-16 10:31] LABS: Appearance Urine Clear; Glucose Urine UA Negative (Negative); PH 6.0 (5.0-9.0); Specific Gravity - Urine 1.010 (1.005-1.025); UMIC TRIGGER UACC YES
[2025-05-16 10:47] LABS: Alanine Aminotransferase 10 U/L (0-31); Albumin Level 4.3 g/dL (3.5-5.0); Alkaline Phosphatase 96 U/L (39-117); Anion Gap 13 (12-20); Aspartate Amino Transferase 23 U/L (5-31); Blood Urea Nitrogen 24 mg/dL (9-16); Calcium 9.5 mg/dL (8.4-10.2); Carbon Dioxide 24 mmol/L (22-29); Chloride 108 mmol/L (96-108); Estimated Glomerular Filt Rate 59; Magnesium 2.1 mg/dL (1.6-2.6); Potassium 4.1 mmol/L (3.3-5.1); Sodium 141 mmol/L (135-145); Total Protein 7.2 g/dL (6.5-8.0)
[2025-05-16 11:02] LABS: UACC Culture Trigger YES
[2025-05-16 11:29] LABS: Folate 8.4 ng/mL (> or = 4.0); Vitamin B12 245 pg/mL (200-900)
== END 2025-05-16 08:54 | disposition home or self-care (01) ==
LOC: HO.HMGCLDS 08:53
PROVIDERS: PCP Internal Medicine; Visit Provider Physician Assistant Medical
DX: Z00.00 Encounter for general adult medical examination without abnormal findings (principal); Z13.21 Encounter for screening for nutritional disorder; Z13.29 Encounter for screening for other suspected endocrine disorder; Z13.1 Encounter for screening for diabetes mellitus
CPT/HCPCS: 36415; 80053; 81001; 82248; 82306; 82607; 82746; 83036; 83735; 84443; 85025; 86140; 87086

== ENCOUNTER 2025-07-30 08:13 | Outpatient (REF) | payer MEDICARE, SELFPAY ==
--- OUTSIDE RECORDS SUMMARY | 2025-07-30 08:16 | XMS_ITS | Encounter Summary ---
Author Organization [facility] Address [address] [place] [address] Phone Care Team Providers Care Compliance Administrator Name Role Phone Matthew Juarez MD Primary Care Provider [phone]- [phone] Encounter Details Date Type Department Care Team (Late st Contact Info) Description 12/02/2020 Procedure Pass [facility] PERIOPERATIVE DEPT [address] [place] [address] Social History Tobacco Use Types Packs/Day Years [...] on filedocumented in this encounter Care Teams Compliance Administrator Relationship Specialty Start Date End Date Matthew Juarez MD [address] [place] [id number] PCP - General Internal Medicine 04/05/16 documented as of this encounter Additional Source Comments The information contained in this document represents components of the legal health record. It is not the complete legal health record.[facility]
--- OUTSIDE RECORDS SUMMARY | 2025-07-30 08:16 | XMS_ITS | Patient Health Record ---
[facility] Address [address] [place] [address] Care Team Providers Care School Health Assistant Name Role Phone Matthew Juarez MD Primary Care Provider Unavail[place]otus [place] Unavailable [phone] Allergies Allergen (clinical drug ingredient) Drug/Non Drug [...] W/U Status Risk Notes Problem Hallux valgus (421726370) Hallux Valgus (735.0) Active confirmed Problem Hammer toe (218929226) Hammer toe (735.4) Active confirmed Problem Calcaneal spur (27186100) Calcaneal spur (726.73) Active confirmed Problem Pain in limb (38532041) Pain in Limb (729.5) Active confirmed Problem Plantar fasciitis (528934278) Plantar Fasciitis (728.71) Active confirmed Plan Of [...] Inc [address] [place] [address] [id number] Patel inDanna Self - patient is the insured Medex Blue Shield [address] [place] [address] [id number] Patel inDanna Self - patient is the insured Medical (General) History Medical History History ICD Code osteoarthritis Cholesterol Hiatal hernia measles mumps chicken pox transfusions Surgical History Surgery Date(Month/Year) mastectomy 1989 Modified Becker Bunionectomy Right 02/19
--- OUTSIDE RECORDS SUMMARY | 2025-07-30 08:16 | XMS_ITS | Clinical Summary ---
Author Organization [facility] Address [address] [facility] [address] [place] [address] Phone Care Team Providers Care Parimutuel Ticket Seller Name Role Phone Matthew Juarez MD Primary Care Provider [phone]- [phone] Allergies Active Allergy Reactions Criticality Noted Date [...] per day (including in other prescribed or otyp-qbz-fqtiwsq medications, like [place]). 12/03/19 Active Active Problems Problem Noted Date [...] VACCINES (50+ years) (2 of 2 - PPSV23, PCV20, or PCV21) 08/29/2017 07/04/2017, 02/01/2017 INFLUENZA VACCINE (#1) 2025 [...] this topic Medical Devices Implanted Type Area Customer Services Manager Device Identifier Shelf Expiration Date Model / Serial / Lot Zeke Lens Implants G[employer] Acet Shell 52e Hip 06 Ea - [id number] Implanted:Qty: 1 on 01/31/2017 by Dereje Wu MD at [facility] Right: Hip [employer] 11/24/2026 [id number] / / [id number] G7 Neutral E1 Liner 36mm E Hip 11 - [id number] Implanted:Qty: 1 on 01/31/2017 by Dereje Wu MD at [facility] Right: Hip [employer] 11/23/2021 [id number] / / [id number] Tprlc 133 Mp Full Prof Type1 Pps Ho 8.0 Hip [id number] Implanted:Qty: 1 on 01/31/2017 by Dereje Wu MD at [facility] Right: Hip [employer] 07/27/2026 [id number] / / [id number] Hip Head Femoral Ceramic Bioloxd Mod 36mm -3 Nk Hip [id number] Implanted:Qty: 1 on 01/31/2017 by Dereje Wu MD at [facility] Right: Hip [employer] 11/14/2026 [id number] / / [id number] Acetabular Liner [id number] Size Ii Longevity Highly Crosslinked Polyethylene Neutral - [id number] Implanted:Qty: 1 on 12/02/2020 by Dereje Wu MD at [facility] Left: Acetabulum MICHAEL / DIV OF [employer] [id number] 07/06/2024 [id number] / / [id number] Description:The implant type , laterality (when applicable), size, and expiration date have been visually and verbally confirmed by the Surgeon, Circulating RN and Scrub Personnel. Acetabular Shell 52mm Size Ii Continuum Tivanium Trabecular Metal Hemisphere Cluster Hole - [id number] Implanted:Qty: 1 on 12/02/2020 by Dereje Wu MD at [facility] Left: Acetabulum MICHAEL / DIV OF [employer] [id number] 02/03/2030 [id number] / / [id number] Description:The implant type , laterality (when applicable), size, and expiration date have been visually and verbally confirmed by the Surgeon, Circulating RN and Scrub Personnel. Hip Stem Size 9 Femoral Taperloc Complete Microplasty Pps Coating - [id number] Implanted:Qty: 1 on 12/02/2020 by Dereje Wu MD at [facility] Left: Femur [employer] [id number] 01/20/2028 [id number] / / [id number] Description:The implant type , laterality (when applicable), size, and expiration date have been visually and verbally confirmed by the Surgeon, Circulating RN and Scrub Personnel. Femoral Head 36mm Minus 3mm Type 1 Taper Hip Biolox Delta Modular Ceramic - [id number] Implanted:Qty: 1 on 12/02/2020 by Dereje Wu MD at [facility] Left: Femur MICHAEL / DIV [employer] 06/05/2030 [id number] / / [id number] Description:The implant type , laterality (when applicable), size, and expiration date have been visually and verbally confirmed by the Surgeon, Circulating RN and Scrub Personnel. Insurance MEDICARE PART A & B [employer] [place] [employer] MEDEX SUPPLEMENT MEDICARE PART A & B [facility] MEDEX SUPPLEMENT MEDICARE PART A & B [employer] MEDEX SUPPLEMENT MEDICARE PART A & B [employer] MEDEX SUPPLEMENT MEDICARE PART A & B [employer] MEDEX SUPPLEMENT MEDICARE PART A & B [employer] MEDEX SUPPLEMENT MEDICARE PART A & B [facility] MEDEX SUPPLEMENT MEDICARE PART A & B [employer] MEDEX SUPPLEMENT MEDICARE PART A & B [employer] MEDEX SUPPLEMENT MEDICARE PART A & B [employer] MEDEX SUPPLEMENT Advance Directives For more information, please contact: [phone] (9AM - 5PM [facility], Monday-Monday) Documents on File Type Date Recorded Patient 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 Control Clerk Expl anation Healthcare Proxy 02/01/2017 5:00 PM * Full Code (Presumed) (Latest Code Status on File) Date Activated Date Inactivated Comments 01/31/2017 4:26 PM 02/03/2017 12:44 PM * Full Code (Presumed) Date Activated Date Inactivated Comments 01/31/2017 1:13 PM 01/31/2017 4:26 PM Healthcare Agents on File Name Relationship Healthcare Agent Relationshi p Communication Bijal Cameron Daughter .Primary Health Care Agent (Proxy form on file) Care Teams Parimutuel Ticket Seller Relationship Specialty Start Date End Date Matthew Juarez MD [address] [place] [address] [phone] PCP - General Internal Medicine 04/05/16 Additional Source Comments The information contained in this document represents components of the legal health record. It is not the complete legal health record.[facility]
--- OUTSIDE RECORDS SUMMARY | 2025-07-30 08:16 | XMS_ITS | Patient Health Record ---
Author Organization [facility] Address [address] [place] [address] Care Team Providers Care Factory Clerk Name Role Phone Ann (RETIRED) Matthew MAZARIEGOS Primary Care Provider Unavailable Jayro Barnes Unavailable [phone] Reason For Referral No Information Medications Medication SIG (Take, Route, Frequency, Duration) Notes Start Date End Date Status Omeprazole 40 MG Capsule Delayed Release TAKE 1 CAPSULE BY MOUTH EVERY DAY Orally Once a day Active Ezetimibe 10 MG Tablet Oral; Duration: 90 Active Aspirin 81 MG Tablet Chewable Oral; Duration: 30 Active amLODIPine Besylate 5 MG Tablet Oral; Duration: 90 Active Gemfibrozil 600 MG Tablet Oral; Duration: 90 Active Immunizations Vaccine Route Administration Date Status Comme nts Influenza Unknown 04/07/2020 Administered Social History Tobacco Use: Social History Observation Description Date Details (start date - stop date) Former Smoker NA - NA Social History Drugs/Alcohol: Social Info Question Answer Notes Alcohol Screen Did you have a drink containing alcohol in the past year? Yes How often did you have a drink containing alcohol in the past year? 2 to 4 times a month (2 points) How many drinks did you have on a typical day when you were drinking in the past year? 1 or 2 drinks (0 point) How often did you have 6 or more drinks on one occasion in the past year? Never (0 point) Points 2 Interpretation Negative Tobacco Use: Social Info Question Answer Notes Tobacco Use/Smoking Patient is a former smoker How long has it been since you last smoked? > 10 years Additional Details Category Social Info Options Details Miscellaneous: Marital status: Occupation: Retired Section Notes: Occasional glass of wine Nonsmoker Problems Problem Type SNOMED Code ICD Code Onset Dates Problem Status W/U Status Risk Notes Problem Upper abdominal pain (94953073) Upper abdominal pain (R10.10) Active confirmed Problem Gastroesophageal reflux disease (632990592) Gastroesophageal reflux disease, unspecified whether esophagitis present (K21.9) Active confirmed Plan Of Treatment Pending Test Test Name Order Date Pathology 03/26/2021 Future Test Test Name Order Date UPPER GI ENDOSCOPY 03/23/2021 Insurance Providers Payer Name Payer Address Payer Phone Subscriber Number Group Number Insured Name Patient Relationship to Insured Coverage Start Date Coverage End Date MEDICARE OF [place] [address] [place] [id number] [place] Self - patient is the insured MEDEX ATTN CLAIMS [address] [place] [address] [phone] [id number] [place], [place] Self - patient is the insured Medical (General) History Medical History History ICD Code Hypertension Arthritis Asthma GERD Hyperlipidemia Breast cancer-left--1989--surgery as bel ow Denies AL,DM,CVA,Lung disease,renal dise ase Negative colonoscopy in her 60's Surgical History Surgery Date(Month/Year) Right hip replacement 2016 Left hip replacement 2020 Left mastectomy Appendectomy 2017
--- OUTSIDE RECORDS SUMMARY | 2025-07-30 08:16 | XMS_ITS | Encounter Summary ---
Author Organization [facility] Address [address] [place] [address] Phone Care Team Providers Care Staff Climate Scientist Name Role Phone Matthew Juarez MD Primary Care Provider +1- [phone] Encounter Details Date Type Department Care Team (Late st Contact Info) Description 01/31/2017 Procedure Pass [facility] PERIOPERATIVE DEPT [address] [place] [address] Social History Tobacco Use Types Packs/Day Years [...] on filedocumented in this encounter Care Teams Staff Climate Scientist Relationship Specialty Start Date End Date Matthew Juarez MD [address] [place] [id number] PCP - General Internal Medicine 04/05/16 documented as of this encounter Additional Source Comments The information contained in this document represents components of the legal health record. It is not the complete legal health record.[facility]
[2025-07-30 10:23] LABS: Hematocrit 39.8 % (37.0-47.0); Hemoglobin 13.3 g/dl (12.0-16.0); Mean Corpuscular HGB Conc 33.4 g/dl (31.0-35.0); Mean Corpuscular Hemoglobin 30.3 pg (27.0-33.0); Mean Corpuscular Volume 90.7 fL (80.0-98.0); NRBC Abs Auto 0.000 X10*3/uL (0.0-0.012); NRBC Pct Auto 0.0 /100WBC (0.0-0.2); Platelet Count 237 X10*3/uL (160-400); Red Blood Count 4.39 X10*6/uL (4.20-5.50); White Blood Count 5.3 X10*3/uL (4.8-10.8)
[2025-07-30 10:38] LABS: Alanine Aminotransferase 8 U/L (0-31); Albumin Level 4.3 g/dL (3.5-5.0); Alkaline Phosphatase 90 U/L (39-117); Anion Gap 14 (12-20); Aspartate Amino Transferase 22 U/L (5-31); Blood Urea Nitrogen 33 mg/dL (9-16); Calcium 9.3 mg/dL (8.4-10.2); Carbon Dioxide 20 mmol/L (22-29); Chloride 112 mmol/L (96-108); Estimated Glomerular Filt Rate 53; Magnesium 1.9 mg/dL (1.6-2.6); Potassium 3.8 mmol/L (3.3-5.1); Sodium 142 mmol/L (135-145); Total Protein 7.1 g/dL (6.5-8.0)
[2025-07-30 10:54] LABS: Appearance Urine Clear; Glucose Urine UA Negative (Negative); PH 5.0 (5.0-9.0); Specific Gravity - Urine 1.020 (1.005-1.025); UMIC TRIGGER UACC YES
[2025-07-31 09:31] LABS: E. coli EAEC Not Detected (Not Detect.); E. coli EPEC Not Detected (Not Detect.); E. coli ETEC Not Detected (Not Detect.); E. coli STEC Not Detected (Not Detect.); Shigella sp./EIEC Not Detected (Not Detect.)
== END 2025-07-30 08:14 | disposition home or self-care (01) ==
LOC: HO.HMGCLDS 08:13
PROVIDERS: PCP Physician Assistant Medical; Visit Provider Physician Assistant Medical
DX: Z00.00 Encounter for general adult medical examination without abnormal findings (principal); R19.8 Other specified symptoms and signs involving the digestive system and abdomen
CPT/HCPCS: 36415; 80053; 81001; 81003; 83735; 85027; 87507

== ENCOUNTER 2025-08-04 10:54 | Outpatient (AMB) | payer MEDICARE, SELFPAY ==
[2025-08-04 10:53] VITALS: BP 155/69; PULSE 78; RESP 16; TEMP 36.7; O2SAT 94; BMI 28.7
--- NOTE | 2025-08-04 10:53 | A.OFFPC_ITS ---
Vital Signs 08/04/25 10:53 08/04/25 11:02 Height 5 ft 1.61 in Weight 155 lb BMI 28.7 BP 155/69 H 141/71 H Blood Pressure Location Rt brachial Rt brachial Position Sitting Sitting Respiration 16 Pulse 78 Pulse Source Pulse Oximeter Temp 98.0 F Temp Source Temporal Artery Scan Pulse Oximetry (%) 94 Oxygen Delivery Method Room Air Intake Visit Reasons: Physical Client Services Account Manager Required: No Accompanied by: Self / Same As Patient Allergies adhesive tape Allergy (Severe, Verified 08/04/25 15:05) Blister latex Allergy (Intermediate, Verified 08/04/25 15:05) Rash enalapril Allergy (Mild, Verified 08/04/25 15:05) Diarrhea Medication List - Last Reconciled 08/04/25 by Сергей Arreaga MD albuterol sulfate 90 mcg/actuation inhalation ascorbate calcium (vitamin C) 500 mg PO BID 90 days aspirin 81 mg PO DAILY chlorthalidone 12.5 mg PO DAILY cholecalciferol (vitamin D3) 2,000 units PO DAILY 3 months esomeprazole magnesium (Nexium) 10 mg PO DAILY gemfibrozil 600 mg PO BID 90 days lorazepam mg PO oxybutynin chloride ER 10 mg PO DAILY Tobacco use date assessed: 05/06/25 Dental Screening Dental Screen Date: 03/03/25 HPI HPI Comments History of Present Illness Details History of Present Illness - The patient is an 84 year old female p resenting for follow-up of hypertension and urinary incontinence. - Regarding her hypertension, she previo usly took amlodipine which was discontinued due to leg swelling. - She was then prescribed enalapril, whi ch she took for a few months but stopped approximately two weeks ago due to side effects of diarrhea and severe fatigue. - She reported having loose stools two t o three times per day and feeling totally exhausted, causing her to nap during the day and sleep through the night, which is unusual for her. - Since discontinuing the medication, elizabeth th the diarrhea and fatigue have resolved. - Her recent home blood pressure reading s are borderline high, with measurements including 140/83, 142/86, 128/73, and a high of 152/87 mmHg. - For bladder leakage, the patient is ta edith oxybutynin and reports it is 100% effective. - The patient has a history of arthritis and had to stop a medication for it because it affected her kidneys. - She also reports a history of plantar fasciitis and intermittent ankle pain, which is not present today. - She has a chronic problem with sleep. Social History Results - Labs: Recent blood work from [facility] was all fine. - Cholesterol panel from February was fine. - Urinalysis: Negative. - Stool sample: Negative. 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 Small vessel disease History of mammogram (~08/17/24) Screening for osteoporosis Hyperlipidemia Macular pucker Depression History of TIA (transient ischemic attack) Wears glasses Wears dentures Arthritis Back pain Slow to wake up after anesthesia History of blood transfusion (1962) Anxiety GERD (gastroesophageal reflux disease) FHx: bilateral hip replacements Acid reflux Hypercholesteremia Hypertension Surgical History Hx of squamous cell carcinoma excision (01/25/24) Hx of colonoscopy (~03/26/21) History of back surgery (~2013) History of bilateral hip replacements H/O mastectomy (1989) Hx of appendectomy Family History Mother Lung cancer Father Coronary thrombosis Social History Household Members: None Housing: House Are you a primary child care provider to a significant other at home: No Do you presently have visiting nurse or other home services: No 75 years or older and lives alone: Yes Alcohol intake: current Alcohol intake frequency: holidays/special occasions only Patient Tobacco Use Status: Former Tobacco user e-Cigarette/Vaping Use: Never Used service: No Current occupational status: retired Cognitive needs: No Hearing needs: No Vision needs: Yes (reading glasses) Questionnaire PHQ-9 Over the last 2 weeks, how often have you been bothered by any of the following problems? 1. Little interest or pleasure in doing things: not at all 2. Feeling down, depressed, or hopeless: several days 3. Trouble falling or staying asleep, or sleeping too much: nearly every day 4. Feeling tired or having little energy: several days 5. Poor appetite or overeating: several days 6. Feeling bad about yourself - or that you are a failure or have let yourself or your family down: not at all 7. Trouble concentrating on things, such as reading the newspaper or watching television: not at all 8. Moving or speaking so slowly that other people could have noticed. Or the opposite - being so fidgety or restless that you have been moving around a lot more than usual: several days 9. Thoughts that you would be better off or of hurting yourself in some way: not at all Total score: 7 Depression Screening Interpretation: Positive Depression Screening Follow-up: Existing condition, In treatment and Community Mental Health Worker F/U Depression Screening Done: Yes 66702 - PHQ-9 Billing: Yes Source: Developed by Drs. Jayro Adamson, Doreen Ayon, Ian Romo and colleagues, with an educational ev from [employer]. Thrive Questionnaire Date Thrive assessed: 03/03/25 I am a: Patient What is your living situation today?: I have a steady place to live Within the past 12 months, did the food you bought not last and you didn't have the money to get more?: Never true Within the past 12 months, did you worry whether your food would run out before you got money to buy more?: Never true Do you have trouble paying for medicines?: No Do you have trouble getting transportation to medical appointments?: No Do you have trouble paying your heating and electricity bill?: No Do you have trouble taking care of your child, family member or friend?: No Do you have trouble with day-to-day activities such as bathing, preparing meals, shopping, managing finances, etc.?: No Are you currently unemployed and looking for a job?: No Are you interested in more education?: No Please select the resources that you would like help with: None Currently or been in a relationship where the following occur: No concerns reported THRIVE Score: 0 AUDIT C Alcohol Use Questionnaire (AUDIT-C) 1. How often do you have a drink containing alcohol?: Monthly or less 2. How many drinks containing alcohol do you have on a typical day when you are drinking?: 1 or 2 3. How often do you have six or more drinks on one occasion?: Never Total Score: 1 Score Reviewed/Action Taken: No SAIMA-7 AMB Questionnaire SAIMA-7 Date SAIMA - 7 assessed: 03/03/25 Feeling nervous, anxious, or on edge: 2 = More than half the days Not being able to stop or control worryin = Nearly every day Worrying too much about different things: 3 = Nearly every day Trouble relaxin = Not at all Being so restless that it is hard to sit still: 0 = Not at all Becoming easily annoyed or irritable: 0 = Not at all Feeling afraid as if something awful might happen: 2 = More than half the days Total SAIMA-7 score (0-4 normal; 5-9 mild; 10-14 moderate; 15-21 severe): 10 Source: Developed by Drs. Jayro Adamson, Doreen Ayon, Ian Romo and colleagues, with an educational ev from [employer]. SAIMA-7 Assessment Billing SAIMA-7 Assessment Tool: SAIMA-7 Assessment 86762 Review of Systems Narrative Review of Systems - CONSTITUTIONAL: Reports recent history of severe fatigue while on enalapril, which has since resolved. Denies current fatigue. - GASTROINTESTINAL: Reports recent history of diarrhea with loose stools 2-3 times daily while on enalapril, which has since resolved. Denies current diarrhea. - GENITOURINARY: Reports history of urinary incontinence, which is now well- controlled on oxybutynin. - MUSCULOSKELETAL: Reports intermittent severe ankle ache, though denies it today. Reports a history of plantar fasciitis. - NEUROLOGICAL/PSYCHIATRIC: Reports a chronic problem with sleep. Physical exam (Primary Care) Vital Signs: Last Vital Signs Temp 98.0 F 08/04/25 10:53 Pulse 78 08/04/25 10:53 Resp 16 08/04/25 10:53 BP 141/71 H 08/04/25 11:02 Pulse Ox 94 08/04/25 10:53 Oxygen Delivery Method Room Air 08/04/25 10:53 BMI result Body Mass Index 28.7 Tobacco/Smoking Status: Tobacco use Status Tobacco use date assessed 05/06/25 08/04/25 11:01 Patient Tobacco Use Status Former Tobacco user 08/04/25 11:01 Tobacco use type 03/04/25 08:53 e-Cigarette/Vaping Use Never Used 08/04/25 11:01 PHQ-9: PHQ-9 Score PHQ-9: Total score 7 08/04/25 14:02 Depression Screening Interpretation: Positive Depression Screening Follow-up: Existing condition, In treatment and Community Mental Health Worker F/U Thrive Assessment: Date of Thrive Assessment Date Thrive assessed 03/03/25 08/04/25 11:01 Currently or been in a relationship where the following occur: No concerns reported Narrative Physical Exam General: Cooperative and healthy appearing Nutritional Appearance: Well nourished Orientation/consciousness: Patient oriented x3 Limitations: No limitations Head: Normal to inspection General: Appearance normal, both eyes and all related structures Neck: Normal visual inspection Chest: Normal palpation of entire chest wall Respiratory: Normal respiratory effort Neurology: Patient oriented x3 Coding Level of Care Code Est Pt Level 4 (70976) Add On Problem Visit Only Diagnoses Hypertension I10 Additional Codes SAIMA-7 Assessment Billing - SAIMA-7 Assessment Tool: SAIMA-7 Assessment 37129 ([id number]) PHQ-9 - 37222 - PHQ-9 Billing: Yes ([id number]) Assessment & Plan Assessment & Plan (1) Hypertension: Code(s): I10 - Essential (primary) hypertension Category: Medical Plan Plan - Hypertension: Will start chlorthalidone 12.5 mg tablet daily, with a 15 mg dose being an acceptable alternative depending on insurance coverage. A prescription has been sent via mail order to [facility]. - Urinary Incontinence: The patient will continue taking oxybutynin as it is effectively managing her symptoms. - Ankle Pain: Advised to take extra-strength Tylenol as needed for pain. - Follow-up: The patient will return for a follow-up visit in three months. Discussion Notes I reviewed the patient's home blood pressure log, which shows borderline to elevated readings, confirming the need for medication. We discussed her history of medication intolerance, including leg swelling with amlodipine and significant diarrhea and fatigue with enalapril. I proposed starting a new blood pressure medication, chlorthalidone, at a low dose of 12.5 mg daily, and she agreed to this plan. I informed her that if her insurance provides the 15 mg tablet, that would also be acceptable. I sent the prescription to her mail-order pharmacy. For her intermittent ankle pain, I recommended extra-strength Tylenol. We also confirmed her recent lab results, including bloodwork, stool, and urine samples, were all negative. I have scheduled a follow-up appointment in three months to re-evaluate her blood pressure control. Patient Instructions - Start taking the new blood pressure medication, chlorthalidone 12.5 mg, once every day. - Your insurance plan might send you a 15 mg tablet instead, which is also fine for you to take. - The prescription was sent to your [facility] mail-order pharmacy. - Continue taking your current medication, oxybutynin, for bladder control, as it is working well. - For your ankle pain, you may take extra-strength Tylenol as needed. - Please return for a follow-up appointment in three months. Medications: New chlorthalidone 12.5 mg PO DAILY 30 tabs 0RF
[2025-08-04 11:02] VITALS: BP 141/71
--- OUTSIDE RECORDS SUMMARY | 2025-08-04 12:35 | XMS_ITS | Patient Health Record ---
Author Organization [facility] Address [address] [place] [address] Care Team Providers Care Communications Equipment Supervisor Name Role Phone Ann (RETIRED) Matthew MAZARIEGOS Primary Care Provider Unavailable Jayro Barnes Unavailable [phone] Reason For Referral No Information Medications Medication [...] Status Risk Notes Problem Upper abdominal pain (71586408) Upper abdominal pain (R10.10) Active confirmed Problem Gastroesophageal reflux disease (653133754) Gastroesophageal reflux disease, unspecified whether esophagitis present (K21.9) Active confirmed Plan Of Treatment Pending Test Test Name Order Date Pathology 03/26/2021 Future Test Test Name Order Date UPPER GI ENDOSCOPY 03/23/2021 Insurance Providers Payer Name Payer Address Payer Phone Subscriber Number Group Number Insured Name Patient Relationship to Insured Coverage Start Date Coverage End Date MEDICARE OF [place] [address] [place] [address] [id number] [place] Self - patient is the insured [employer] ATTN CLAIMS [address] [place] [address] [id number] [place], [place]A Self - patient is the insured Medical (General) History Medical History History ICD Code Hypertension Arthritis Asthma GERD Hyperlipidemia Breast cancer-left--1989--surgery as bel ow Denies MD,DM,CVA,Lung disease,renal dise ase Negative colonoscopy in her 60's Surgical History Surgery Date(Month/Year) Right hip replacement 2016 Left hip replacement 2020 Left mastectomy Appendectomy 2017
--- OUTSIDE RECORDS SUMMARY | 2025-08-04 12:35 | XMS_ITS | Clinical Summary ---
Author Organization [facility] Address [address] [facility] [address] [place] [address] Phone Care Team Providers Care Dispatcher Maintenance Name Role Phone Matthew Juarez MD Primary Care Provider [phone] Allergies Active Allergy Reactions Criticality Noted Date [...] per day (including in other prescribed or qqfs-jin-oryswtg medications, like [place]). 12/03/19 Active Active Problems Problem Noted Date [...] this topic Medical Devices Implanted Type Area Slurry Blender Device Identifier Shelf Expiration Date Model / Serial / Lot Zeke Lens Implants [employer] Acet Shell 52e Hip 06 Ea - [id number] Implanted:Qty: 1 on 01/31/2017 by Dereje Wu MD at [facility] Right: Hip [employer] 11/24/2026 [id number] / / [id number] G7 Neutral E1 Liner 36mm E Hip 11 - [id number] Implanted:Qty: 1 on 01/31/2017 by Dereje Wu MD at [facility] Right: Hip [employer] 11/23/2021 [id number] / / [id number] Tprlc 133 Mp Full Prof Type1 Pps Ho 8.0 Hip [id number] Implanted:Qty: 1 on 01/31/2017 by Dereje Wu MD at [facility] Right: Hip [employer] 07/27/2026 [id number] / / [id number] Hip Head Femoral Ceramic Bioloxd Mod 36mm -3 Nk Hip [id number] Implanted:Qty: 1 on 01/31/2017 by Dereje Wu MD at [facility] Right: Hip [employer] 11/14/2026 [id number] / / [id number] Acetabular Liner [id number] Size Ii Longevity Highly Crosslinked Polyethylene Neutral - [id number] Implanted:Qty: 1 on 12/02/2020 by Dereje Wu MD at [facility] Left: Acetabulum MICHAEL / [employer] [id number] 07/06/2024 [id number] / / [id number] Description:The implant type , laterality (when applicable), size, and expiration date have been visually and verbally confirmed by the Surgeon, Circulating RN and Scrub Personnel. Acetabular Shell 52mm Size Ii Continuum Tivanium Trabecular Metal Hemisphere Cluster Hole - [id number] Implanted:Qty: 1 on 12/02/2020 by Dereje Wu MD at [facility] Left: Acetabulum MICHAEL / [employer] [id number] 02/03/2030 [id number] / / [id number] Description:The implant type , laterality (when applicable), size, and expiration date have been visually and verbally confirmed by the Surgeon, Circulating RN and Scrub Personnel. Hip Stem Size 9 Femoral Taperloc Complete Microplasty Pps Coating - [id number] Implanted:Qty: 1 on 12/02/2020 by Dereje Wu MD at [facility] Left: Femur [employer] [id number] 01/20/2028 [id number] / / [id number] Description:The implant type , laterality (when applicable), size, and expiration date have been visually and verbally confirmed by the Surgeon, Circulating RN and Scrub Personnel. Femoral Head 36mm Minus 3mm Type 1 Taper Hip Biolox Delta Modular Ceramic - [id number] Implanted:Qty: 1 on 12/02/2020 by Dereje Wu MD at [facility] Left: Femur MICHAEL / [employer] 06/05/2030 [id number] / / [id number] Description:The implant type , laterality (when applicable), size, and expiration date have been visually and verbally confirmed by the Surgeon, Circulating RN and Scrub Personnel. Insurance MEDICARE PART A & B [place] MEDEX SUPPLEMENT MEDICARE PART A & B [facility] MEDEX SUPPLEMENT MEDICARE PART A & B [employer] MED[employer] SUPPLEMENT MEDICARE PART A & B [employer] SUPPLEMENT MEDICARE PART A & B [employer] SUPPLEMENT MEDICARE PART A & B [employer] SUPPLEMENT MEDICARE PART A & B [facility] MEDEX SUPPLEMENT MEDICARE PART A & B [employer] MED[employer] SUPPLEMENT MEDICARE PART A & B [employer] SUPPLEMENT MEDICARE PART A & B [employer] MEDEX SUPPLEMENT Advance Directives For more information, please contact: [phone] (9AM - 5PM [facility], Monday-Monday) Documents on File Type Date Recorded Patient Casino Floor Walker Expl anation Healthcare Proxy 02/01/2017 5:00 PM [...] Agent (Proxy form on file) Care Teams Dispatcher Maintenance Relationship Specialty Start Date End Date Matthew Juarez MD [address] [place] [address] [id number] PCP - General Internal Medicine 04/05/16 Additional Source Comments The information contained in this document represents components of the legal health record. It is not the complete legal health record.[facility]
--- OUTSIDE RECORDS SUMMARY | 2025-08-04 12:35 | XMS_ITS | Patient Health Record ---
[facility] Address [address] [place] [address] Care Team Providers Care Broom Bundler Name Role Phone Matthew Juarez MD Primary Care Provider UnavailLotus [place] Unavailable [phone] Allergies Allergen (clinical drug ingredient) Drug/Non Drug [...] W/U Status Risk Notes Problem Hallux valgus (949791015) Hallux Valgus (735.0) Active confirmed Problem Hammer toe (434029036) Hammer toe (735.4) Active confirmed Problem Calcaneal spur (03225334) Calcaneal spur (726.73) Active confirmed Problem Pain in limb (63259706) Pain in Limb (729.5) Active confirmed Problem Plantar fasciitis (637238994) Plantar Fasciitis (728.71) Active confirmed Plan Of [...] Inc [address] [place] [address] [id number] Patel inDanna Self - patient is the insured [employer] Blue Shield [address] [place] [address] [phone] [id number] Patel inDanna Self - patient is the insured Medical (General) History Medical History History ICD Code osteoarthritis Cholesterol Hiatal hernia measles mumps chicken pox transfusions Surgical History Surgery Date(Month/Year) mastectomy 1989 Modified Becker Bunionectomy Right 02/19
--- OUTSIDE RECORDS SUMMARY | 2025-08-04 12:35 | XMS_ITS | Clinical Summary ---
Author Organization [facility] Address [address] [address] Care Team Providers Care Call Center Recruiter Name Role Phone Matthew Juarez MD Primary Care Provider [phone] Allergies Active Allergy Reactions Criticality Noted Date Comments Adhesive Tape Rash High 01/10/2017 Medications omeprazole (PriLOSEC) [address] capsule 04/24/2021 Active gemfibrozil (LOPID) 600 MG tablet Take 1 tablet by mouth 2 (two) times a day Active aspirin (ST JUA NF) 81 MG EC tablet Take 81 mg [...] Years Used Date Smoking Tobacco: Former Cigarettes 0 Q uit: 03/13/1998 Alcohol Use Standard Drinks/Week [...] patient's age to complete this topic Insurance [facility] [place] [place] [address] Medicare Care Teams Call Center Recruiter Relationship Specialty Start Date End Date Matthew Juarez MD [address] [place] [address] PCP - General 08/17/20
--- OUTSIDE RECORDS SUMMARY | 2025-08-04 12:35 | XMS_ITS | Encounter Summary ---
Author Organization [facility] Address [address] [place] [phone] Phone Care Team Providers Care Bottom Painter Name Role Phone Matthew Juarez MD Primary Care Provider [phone] Encounter Details Date Type Department Care Team (Late st Contact Info) Description 01/31/2017 Procedure Pass [facility] PERIOPERATIVE DEPT [address] [place] [address] Social History Tobacco Use Types Packs/Day Years [...] on filedocumented in this encounter Care Teams Bottom Painter Relationship Specialty Start Date End Date Matthew Juarez MD [address] [place] [id number] PCP - General Internal Medicine 04/05/16 documented as of this encounter Additional Source Comments The information contained in this document represents components of the legal health record. It is not the complete legal health record.[facility]
--- OUTSIDE RECORDS SUMMARY | 2025-08-04 12:35 | XMS_ITS | Encounter Summary ---
Author Organization [facility] Address [address] [place] [phone] Phone Care Team Providers Care Senior Control Systems Engineer Name Role Phone Matthew Juarez MD Primary Care Provider [phone] Encounter Details Date Type Department Care Team (Late st Contact Info) Description 12/02/2020 Procedure Pass [facility] PERIOPERATIVE DEPT [address] [place] [address] Social History Tobacco Use Types Packs/Day Years [...] on filedocumented in this encounter Care Teams Senior Control Systems Engineer Relationship Specialty Start Date End Date Matthew Juarez MD [address] [place] [id number] PCP - General Internal Medicine 04/05/16 documented as of this encounter Additional Source Comments The information contained in this document represents components of the legal health record. It is not the complete legal health record.[facility]
== END 2025-08-04 11:13 | disposition home or self-care (01) ==
LOC: HO.HMCSH 10:54
PROVIDERS: PCP Internal Medicine; Visit Provider Internal Medicine
DX: I10 Essential (primary) hypertension (principal)

== ENCOUNTER → 2025-08-04 10:54 | Outpatient (BNVA) | payer MEDICARE, SELFPAY | PROVIDERS: PCP Internal Medicine; Visit Provider Internal Medicine | DX: I10 Essential (primary) hypertension (principal); R32 Unspecified urinary incontinence; Z13.31 Encounter for screening for depression; Z13.39 Encounter for screening examination for other mental health and behavioral disorders | CPT/HCPCS: 96127; 99212 ==